=== PATIENT | female | born 1960 | race Caucasian/White ===

== ENCOUNTER 2017-07-07 09:56 | Day surgery (SDC) | payer OTHER, SELFPAY ==
[2017-07-07 10:23] VITALS: BP 118/66; PULSE 58; RESP 16; TEMP 36.7; O2SAT 100; BMI 24.3
[2017-07-07 11:10] VITALS: BP 118/66; BP 96/51; PULSE 51; RESP 19; TEMP 35.7; O2SAT 98
--- NOTE | 2017-07-07 11:11 | PCM.OPRPT ---
Problem List (1) Abdominal discomfort, epigastric Status: Acute (2) Nausea Status: Acute (3) Left flank pain Status: Acute Report of Operation Date of Procedure: 07/07/17 Pre-Operative Diagnosis: R10.13 epigastric abdominal pain. R11.0 nausea. R10.9 left flank pain Post-Operative Diagnosis: Same Surgery/Procedure Performed:: 78997 esophagogastroduodenoscopy with biopsy. 20920 colonoscopy Type of Anesthesia:: MAC Anesthesiologist: Kris Malcolm Description of Procedure: Patient was brought into the endoscopy suite. Back of her throat was sprayed with benzocaine spray. A bite-block was placed. She was placed on the left lateral decubitus position. Graded anesthesia was given. The scope was inserted into the back of her oropharynx and directed down through her esophagus, stomach, and into the duodenum without difficulty operative findings: 1. Duodenum: Normal appearance no mass lesions no ulcerations mucosal all look normal. No signs of any bleeding. 2. Stomach: Normal appearance no mass lesions may be some slight erythema in the antral area in the prepyloric area biopsy for H. pylori was obtained. Rest of the stomach was entirely normal without signs of any ulcers. 3. Esophagus: Normal appearance no mass lesions Z line was at 44 cm and was normal. There was no signs of esophagitis. Colonoscope was inserted into the rectum and directed through the sigmoid colon, descending colon, transverse colon, ascending colon, and into the cecum without difficulty. Operative findings: 1. Cecum: Normal appearance no mass lesions normal ileocecal valve. 2. Ascending colon: Normal appearance no mass lesions. 3. Transverse colon: Normal appearance no mass lesions. 4. Descending colon: Normal appearance no mass lesions. 5. Sigmoid colon: Normal appearance no mass lesions a few diverticuli were identified. 6. Rectum: Normal appearance no mass lesions retroflexion did show some internal hemorrhoids. In addition with the scope being withdrawn she had some significant external hemorrhoids which were not actively inflamed. Digital rectal exam did not reveal any masses within her anus. The mucosa throughout the colon looked entirely normal there was no signs of any abnormalities particularly on the left side other than some scattered diverticuli. I think the best course of action here is to proceed with a laparoscopic cholecystectomy on her. - Admit VTE Documentation VTE Present on Admission: No VTE Mechan Device Prophylaxis: None VTE Pharm Prophylaxis ordered?: No Reason prophylaxis not ordered:: Treatment Not Indicated
[2017-07-07 11:15] VITALS: BP 101/59; BP 118/66; PULSE 49; RESP 16; O2SAT 98
--- NOTE | 2017-07-07 11:17 | OP.PCM_ITS ---
Problem List (1) Abdominal discomfort, epigastric Status: Acute (2) Nausea Status: Acute (3) Left flank pain Status: Acute Report of Operation Date of Procedure: 07/07/17 Pre-Operative Diagnosis: R10.13 epigastric abdominal pain. R11.0 nausea. R10.9 left flank pain Post-Operative Diagnosis: Same Surgery/Procedure Performed:: 76568 esophagogastroduodenoscopy with biopsy. 26307 colonoscopy Type of Anesthesia:: MAC Anesthesiologist: Kris Malcolm Description of Procedure: Patient was brought into the endoscopy suite. Back of her throat was sprayed with benzocaine spray. A bite-block was placed. She was placed on the left lateral decubitus position. Graded anesthesia was given. The scope was inserted into the back of her oropharynx and directed down through her esophagus , stomach, and into the duodenum without difficulty operative findings: 1. Duodenum: Normal appearance no mass lesions no ulcerations mucosal all look normal. No signs of any bleeding. 2. Stomach: Normal appearance no mass lesions may be some slight erythema in the antral area in the prepyloric area biopsy for H. pylori was obtained. Rest of the stomach was entirely normal without signs of any ulcers. 3. Esophagus: Normal appearance no mass lesions Z line was at 44 cm and was normal. There was no signs of esophagitis. Colonoscope was inserted into the rectum and directed through the sigmoid colon , descending colon, transverse colon, ascending colon, and into the cecum without difficulty. Operative findings: 1. Cecum: Normal appearance no mass lesions normal ileocecal valve. 2. Ascending colon: Normal appearance no mass lesions. 3. Transverse colon: Normal appearance no mass lesions. 4. Descending colon: Normal appearance no mass lesions. 5. Sigmoid colon: Normal appearance no mass lesions a few diverticuli were identified. 6. Rectum: Normal appearance no mass lesions retroflexion did show some internal hemorrhoids. In addition with the scope being withdrawn she had some significant external hemorrhoids which were not actively inflamed. Digital rectal exam did not reveal any masses within her anus. The mucosa throughout the colon looked entirely normal there was no signs of any abnormalities particularly on the left side other than some scattered diverticuli. I think the best course of action here is to proceed with a laparoscopic cholecystectomy on her. - Admit VTE Documentation VTE Present on Admission: No VTE Mechan Device Prophylaxis: None VTE Pharm Prophylaxis ordered?: No Reason prophylaxis not ordered:: Treatment Not Indicated
[2017-07-07 11:20] VITALS: BP 112/58; BP 118/66; PULSE 48; RESP 16; O2SAT 98
[2017-07-07 11:25] VITALS: BP 110/60; BP 118/66; PULSE 40; RESP 16; TEMP 36.1; O2SAT 100
[2017-07-07 11:48] VITALS: BP 118/66
== END 2017-07-07 11:50 | disposition home or self-care (01) ==
LOC: EN 09:56 → AC 09:58
PROVIDERS: Family Provider Family Medicine; PCP Family Medicine; Visit Provider Surgery
PROC: 0DJD8ZZ Inspection of Lower Intestinal Tract, Via Natural or Artificial Opening Endoscopic (ICD-10-PCS; CPT 45378; principal; 2017-07-07 10:55)
DX: K64.8 Other hemorrhoids (principal); K64.4 Residual hemorrhoidal skin tags; R10.13 Epigastric pain; R11.0 Nausea; R10.9 Unspecified abdominal pain; I48.92 Unspecified atrial flutter; I47.2 Ventricular tachycardia; I10 Essential (primary) hypertension; G47.30 Sleep apnea, unspecified; L40.50 Arthropathic psoriasis, unspecified; Z79.899 Other long term (current) drug therapy
CPT/HCPCS: 43239; 45378; J7120

== ENCOUNTER 2017-07-10 10:21 | Day surgery (SDC) | payer OTHER, SELFPAY ==
--- NOTE | 2017-07-10 | GALL_PTH ---
PATIENT: MAGGI LISA LOC: [facility] [place] U#:[id number] AGE/SX: 56/F ROOM: RE07/10/[address]: Dr. Duy Guido MD : [id number] BED: DIS: 07/10/2017 SPEC #: [id number] RECD: 07/10/17 14:35 STATUS: LORIE NICK #: [id number] KARY: 07/10/17 00:[address]: Duy Guido DEPT: SURGICAL PATHOLOGY RECD BY: Vernon Barcenas ENTERED: 07/10/17 14:36 SP TYPE: SUNNY SAHNI DR: Dr. Mary Rizvi MD Tissues: Gallbladder, NOS Procedures: Surgery Specimen Level III HEADER OPERATION: Laparoscopic cholecystectomy PRE-OP DIAGNOSIS: Cholecystitis/cholelithiasis TISSUE SUBMITTED: Gallbladder and contents MICROSCOPIC DIAGNOSIS Gallbladder and contents: Chronic cholecystitis and cholelithiasis. SJ:gumaro 5/15/18 MICROSCOPIC DESCRIPTION Slides are reviewed. GROSS DESCRIPTION Received is one container labeled with the patient's name and designated gallbladder and contents. The specimen consists of a gallbladder measuring 13 cm in length and up to 3.5 cm in diameter. The external surface is pink-bateman, smooth and glistening for the most part. Focally it is granular, hemorrhagic and contains cautery artifact. The gallbladder contains green-yellow mucoid bile and multiple multifaceted greenish-yellow to brown stones measuring in aggregate 8 x 7 x 2.5 cm and 0.5 to 2 cm in greatest dimension. The mucosa is bile-stained and without any mass lesions. The gallbladder wall measures 0.2 cm in thickness. Pattern Carrier sections from the gallbladder and the cystic duct are submitted in one cassette. / SJ:gumaro 07/10/17 TC:[address] [facility]: [id number]
[2017-07-10] MEDS: Cefazolin 2 GM in 0.9% Normal Saline 100 ML IV (07:00)
--- NOTE | 2017-07-10 10:30 | EKG12_ITS ---
Test Reason : PRE OP Blood Pressure : / mmHG Vent. Rate : 045 BPM Atrial Rate : 045 BPM P-R Int : 128 ms QRS Dur : 094 ms QT Int : 486 ms P-R-T Axes : 051 034 042 degrees QTc Int : 420 ms Marked sinus bradycardia Abnormal ECG Confirmed by SUPRIYA PETERSEN, NAMRATA ([id number]), managing editor ALAINA DAVISON ([id number]) on 07/13/2017 1:04:03 PM Referred By: Duy Guido Confirmed By:NAMRATA EPPS MD
[2017-07-10 10:59] VITALS: BP 123/75; PULSE 53; RESP 14; TEMP 36.4; O2SAT 100; BMI 24.0
[2017-07-10 11:04] LABS: Hematocrit 41.7 % (37-47); Hemoglobin 14.1 g/dl (12.0-15.0); Mean Corp Hgb Conc 33.8 g/gl (32-36); Mean Corpuscular Hgb 31.4 pg (27.0-32.0); Mean Corpuscular Volume 92.9 fL (81-99); Mean Platelet Vol. 10.7 fl (6.2-12.0); Platelet Count 243 K/mm3 (150-450); RBC Distribution Width CV 12.6 % (11.6-14.6); Red Blood Count 4.49 M/mm3 (4.2-5.4); Scan Indicated on CBC? Y/N NO; White Blood Count 4.6 K/mm3 (4.4-11.0)
[2017-07-10 11:05] LABS: Anion Gap 6 (5-15); BUN 9 mg/dL (7-18); BUN/Creat Ratio 8.9 RATIO (10-20); Calcium,Total 8.7 mg/dL (8.5-10.1); Chloride 108 mmol/L (98-107); Creatinine, Serum 1.01 mg/dL (0.55-1.02); EST Glomerular Filtration Rate 60 mL/min (>60); Est Glom Filt Rate - Afr Amer 73 mL/min (>60); Estimated Creatinine Clearance 60.48 ml/min; Glucose 85 mg/dL (74-106); Potassium 3.8 mmol/L (3.5-5.1); Sodium Level 141 mmol/L (136-145)
--- NOTE | 2017-07-10 12:02 | PCM.DC.GB ---
Discharge Diet: Light diet - advance as tolerated Discharge Activity: May Not Drive - for 2-3 days or while taking narcotic pain medications., - - Do not drive, work heavy equipment or sign legal documents for 24 hours. May shower in (days): 1 - with the bandage in place. Additional Activity Instructions:: Pain medication may cause nausea. You should typically eat light foods as you take your pain medications. Pain medication may also cause constipation. If this is a problem for you, please discuss with your doctor. Call your doctor if your incision/area has: Continuous Slow Oozing, Sudden Increased Bleeding, Increased Pain/ Swelling, Increased Redness, Foul Smelling Discharge Call your doctor if you observe: Fever of 101 or Higher Suture Line Care: Avoid Pulling/Pushing, Avoid Pinching/Bending Additional Dressing/Incision Instructions:: Leave operative bandaids on for 2 days. When you remove dressing, leave Steri-Strips on until your follow-up appointment, or until the Steri-Strips fall off on their own. Allergies/Adverse Reactions: Allergies atenolol [From Tenormin] Allergy (Unknown, Verified 07/03/17 10:10) Rash ciprofloxacin HCl [From Cipro] Allergy (Unknown, Verified 07/03/17 10:10) Unknown diltiazem Allergy (Unknown, Verified 07/03/17 10:10) Unknown doxycycline hyclate [From Doryx] Allergy (Unknown, Verified 07/03/17 10:10) Unknown meloxicam [From Mobic] Allergy (Unknown, Verified 07/03/17 10:10) Rash Sulfa (Sulfonamide Antibiotics) Allergy (Unknown, Verified 07/03/17 10:10) Rash tetracycline Allergy (Verified 07/03/17 10:10) Unknown ELECTRODE PATCHES Allergy (Uncoded 07/03/17 09:53) Rash Medications to take at Discharge Calcium Carbonate/Vitamin D3 [[facility] Calcium 600 + Vit D3 Tab] 1 ea PO DAILY 03/10/15 flecainide 50 mg tablet 50 mg PO BID 04/22/17 metoprolol tartrate 25 mg tablet 12.5 mg PO BID tab 04/22/17 Hydrocodone Bitart/Apap 5-325 [Gay 5MG-325MG] 1 - 2 tab PO Q4H PRN PRN 4 Days #30 tab 07/10/17 The following prescriptions were given: Hydrocodone Bitart/Apap 5-325 [Gay 5MG-325MG] 1 - 2 tab PO Q4H PRN PRN 4 Days #30 tab PRN Reason: Pain Primary Care Physician: Mary Rizvi MD [Primary Care Provider] - Please Follow Up With: Duy Guido MD - Please call [phone] to schedule an appointment. When: 7 days after your surgery.
--- NOTE | 2017-07-10 12:04 | OP.PCM_ITS ---
Problem List (1) Calculus of gallbladder with acute cholecystitis without obstruction Status: Acute Report of Operation Date of Procedure: 07/10/17 Pre-Operative Diagnosis: k80.00 calculus of the gallbladder with acute cholecystitis without biliary obstruction Post-Operative Diagnosis: same Surgery/Procedure Performed:: 24493 laparoscopic cholecystectomy Type of Anesthesia:: General Description of Procedure: Patient was brought in the operating room. Placed in the supine position. Under excellent general endotracheal intubation the abdomen was sterilely prepped and draped in the usual fashion. Local was injected infraumbilically. Incision was made. Dissection was carried down to the fascia. The fascia was grasped with a Jolly. Varies needle was placed inside the abdomen. The abdomen was insufflated 15 torr. A 10/12 trocar was placed without difficulty. Patient was placed in the head up and rotated to the left position. A subxiphoid #5 trocar was placed, inferior to this another #5 trocar was placed, laterally a #5 trocar was placed. All of these under direct visualization without injury to underlying structures. Fundus of the gallbladder was grasped retracted in a cephalad direction. Significant amount of adhesions were removed from the liver itself to allow the duodenum and colon to be going down in a inferior direction. I dissected out the cystic duct. I place hemoclips proximally and distally and ligated the duct. Identified the cystic artery. Placed hemoclips proximally distally and ligated the artery. Deliver the gallbladder from the gallbladder bed with use of electrocautery. Placed a small Hemoclip on the posterior branch of the cystic artery. After removing the gallbladder from the gallbladder bed and placed it in a specimen bag and retrieved through the umbilical port. I had to lengthen my umbilical port inferiorly to accommodate the large size of the gallbladder. I reinflated the abdomen. I use electrocautery on the liver bed. I had excellent hemostasis. I remove the trochars under direct visualization. I had good hemostasis. I closed the fascia the umbilical port with 2 sutures of 0 Vicryl in a figure-of- eight fashion. Skin incisions were closed with a particular stitches of 4-0 Monocryl. Steri-Strips are applied. Sterile dressings were applied. The patient tolerated the procedure well. - Admit VTE Documentation VTE Present on Admission: No VTE Mechan Device Prophylaxis: SCD's VTE Pharm Prophylaxis ordered?: No Reason prophylaxis not ordered:: Treatment Not Indicated
[2017-07-10] MEDS: Bupivacaine Mpf 0.5% 30 ML VIAL (12:38)
[2017-07-10 12:56] VITALS: BP 123/75; BP 143/69; PULSE 48; RESP 16; TEMP 36.2; O2SAT 100
[2017-07-10 13:15] VITALS: BP 123/75; BP 151/71; PULSE 48; RESP 16; O2SAT 100
[2017-07-10 13:30] VITALS: BP 123/75; BP 154/69; PULSE 51; RESP 16; O2SAT 100
[2017-07-10 13:37] VITALS: BP 123/75; BP 153/67; PULSE 47; RESP 16; TEMP 36.2; O2SAT 98
[2017-07-10 16:33] VITALS: BP 123/75; BP 159/73; PULSE 51; RESP 18; TEMP 36.5; O2SAT 100
== END 2017-07-10 16:48 | disposition home or self-care (01) ==
LOC: SDC 10:22 → AC 10:23
PROVIDERS: Family Provider Family Medicine; PCP Family Medicine; Visit Provider Surgery
PROC: (CPT 47562; principal; 2017-07-10 11:45)
DX: K80.12 Calculus of gallbladder with acute and chronic cholecystitis without obstruction (principal); K82.8 Other specified diseases of gallbladder; I48.92 Unspecified atrial flutter; I47.2 Ventricular tachycardia; I10 Essential (primary) hypertension; L40.50 Arthropathic psoriasis, unspecified; G47.30 Sleep apnea, unspecified; R00.2 Palpitations; Z79.899 Other long term (current) drug therapy
CPT/HCPCS: 00790; 47562; 80048; 85027; 88304; 93005; J7120

== ENCOUNTER → 2017-08-18 14:25 | Outpatient (CLI) | payer OTHER, SELFPAY ==
[2017-09-05 11:44] LABS: HPV Reflexed? NOT INDICATED
== END ==
PROVIDERS: Family Provider Family Medicine; PCP Family Medicine; Visit Provider Family Medicine
DX: Z01.419 Encounter for gynecological examination (general) (routine) without abnormal findings (principal)
CPT/HCPCS: 88175; G0145

== ENCOUNTER → 2017-09-05 07:24 | Outpatient (CLI) | payer OTHER, SELFPAY ==
--- NOTE | 2017-09-05 06:55 | BI_ITS ---
MAMMOGRAPHY - BILATERAL SCREENING REASON FOR EXAM: Female, 56 years old. Routine annual screening examination. PERTINENT HISTORY: Non-contributory. TECHNIQUE: Digital bilateral breast parminder (3D mammographic acquisition) in the CC and MLO projections. 2-D mediolateral oblique (MLO) and craniocaudad (CC) views of both breasts were obtained. CAD: Full Field Digital Mammography with Computer Added Detection was performed. COMPARISON: Comparison is made with prior study dated August 22, 2016 and August 11, 2015. FINDINGS: Breast Composition: The breasts are heterogeneously dense, which may obscure small masses. There are no dominant masses or suspicious calcifications. Stable benign-appearing bilateral axillary lymph nodes. No other significant abnormalities are identified. There has been no significant change since the prior study. BI/SCREENING MAMM (CAD), BILAT IMPRESSION: Stable bilateral screening mammogram. Yearly follow-up mammogram recommended. (A) ASSESSMENT CATEGORY: BIRADS Category 2: Benign. A letter regarding these results will be sent to the patient by the facility within 30 days. Approximately 10% of breast cancers are not detected by mammography. A normal mammogram should not delay biopsy of a clinically suspicious abnormality. [id number] Electronically Signed: Rosas Gutierrez MD at 10:11 EDT Tel [phone], Service support ,
== END ==
PROVIDERS: Family Provider Family Medicine; PCP Family Medicine; Visit Provider Family Medicine
DX: Z12.31 Encounter for screening mammogram for malignant neoplasm of breast (principal)
CPT/HCPCS: 77063; 77067

== ENCOUNTER → 2017-11-21 13:45 | Outpatient (CLI) | payer OTHER, SELFPAY | PROVIDERS: Family Provider Family Medicine; PCP Family Medicine; Referring Provider Physician Assistant Medical; Visit Provider Physician Assistant Medical | DX: R00.1 Bradycardia, unspecified (principal); I48.92 Unspecified atrial flutter | CPT/HCPCS: 93225; 93226 ==

== ENCOUNTER → 2018-09-14 | Outpatient (CLI) | payer OTHER, SELFPAY ==
[2018-05-28 14:35] VITALS: BMI 23.7
[2018-09-14 12:42] LABS: Anion Gap 9 (5-15); BUN 14 mg/dL (7-18); BUN/Creat Ratio 15.6 RATIO (10-20); Calcium,Total 9.1 mg/dL (8.5-10.1); Chloride 102 mmol/L (98-107); EST Glomerular Filtration Rate 69 mL/min (>60); Est Glom Filt Rate - Afr Amer 83 mL/min (>60); Glucose 73 mg/dL (74-106); Magnesium 2.4 mg/dL (1.6-2.6); Potassium 3.7 mmol/L (3.5-5.1); Sodium Level 139 mmol/L (136-145)
== END | disposition home or self-care (01) ==
LOC: MFPLAB 10:52
PROVIDERS: Family Provider Family Medicine; PCP Family Medicine; Referring Provider Family Medicine; Visit Provider Family Medicine
DX: R00.2 Palpitations (principal)
CPT/HCPCS: 36415; 80048; 83735

== ENCOUNTER → 2018-09-26 08:08 | Outpatient (CLI) | payer OTHER, SELFPAY ==
[2018-05-28 14:35] VITALS: BMI 23.7
--- NOTE | 2018-09-26 08:09 | BI_ITS ---
MAMMOGRAPHY - BILATERAL SCREENING REASON FOR EXAM: Female, 57 years old. Routine annual screening examination. PERTINENT HISTORY: Non-contributory. One year history of left breast tenderness. TECHNIQUE: Digital bilateral breast jeronimo (3D mammographic acquisition) in the CC and MLO projections. 2-D mediolateral oblique (MLO) and craniocaudad (CC) views of both breasts were obtained. CAD: Full Field Digital Mammography with Computer Added Detection was performed. COMPARISON: Comparison is made with prior study dated September 05, 2017 and August 22, 2016. FINDINGS: Breast Composition: The breasts are heterogeneously dense, which may obscure small masses. There are no dominant masses or suspicious calcifications. Stable benign-appearing bilateral axillary lymph nodes. No other significant abnormalities are identified. There has been no significant change since the prior study. BI/SCREEN MAMM (CAD) W/JERONIMO BILAT IMPRESSION: Stable bilateral screening mammogram. Yearly follow-up mammogram recommended. (A) ASSESSMENT CATEGORY: BIRADS Category 2: Benign. A letter regarding these results will be sent to the patient by the facility within 30 days. Approximately 10% of breast cancers are not detected by mammography. A normal mammogram should not delay biopsy of a clinically suspicious abnormality. [id number] Electronically Signed: Rosas Gutierrez, at 10:40 EDT , Service support ,
== END ==
PROVIDERS: Family Provider Family Medicine; PCP Family Medicine; Referring Provider Family Medicine; Visit Provider Family Medicine
DX: Z12.31 Encounter for screening mammogram for malignant neoplasm of breast (principal)
CPT/HCPCS: 77063; 77067

== ENCOUNTER → 2018-11-08 13:13 | Outpatient (CLI) | payer OTHER, SELFPAY ==
[2018-05-28 14:35] VITALS: BMI 23.7
== END ==
PROVIDERS: Family Provider Family Medicine; PCP Family Medicine; Referring Provider Nurse Practitioner Family; Visit Provider Nurse Practitioner Family
DX: R30.0 Dysuria (principal)
CPT/HCPCS: 87086; 87088

== ENCOUNTER → 2019-01-01 14:39 | Outpatient (CLI) | payer OTHER, SELFPAY ==
[2018-12-13 13:14] VITALS: BMI 23.1
--- NOTE | 2019-01-01 14:41 | ECHOD_ITS ---
Reason For Study: A. fib/flutter Procedure This was a 2D Doppler, Color Flow transthoracic echocardiogram. Exam performed in department. Left Ventricle Normal size and thickness. The estimated ejection fraction is 55 %. Normal diastology for age. There is borderline global hypokinesis of the left ventricle. Right Ventricle Mildly dilated right ventricle. Normal systolic function. Atria Normal left atrium. Normal right atrium. Normal atrial septum. Bubble contrast study negative for right to left interatrial shunt. Mitral Valve The mitral valve is structurally normal. No prolapse or stenosis seen. Tricuspid Valve Normal tricuspid valve. Mild (1+) tricuspid valve insufficiency. Right ventricular systolic pressure estimated to be 30 mmHg. Aortic Valve Normal aortic valve. Trisinus/trileaflet aortic valve. Pulmonic Valve Normal pulmonic valve. Trivial pulmonic valve insufficiency. Great Vessels Normal aortic root. Normal arch. Normal inferior vena cava. Inferior vena cava collapse with sniff. Pericardium/Pleural Trivial pericardial effusion. There are no echocardiographic indications of cardiac tamponade. Medication 22 gauge I.V. with prn adaptor inserted into left arm. Performed a rapid injection of agitated mix of 9 cc saline and 1cc air to assess for atrial septal defect. MMode/2D Measurements & Calculations LVIDd: 4.0 cm IVSd: 1.0 cm Ao root diam: 2.9 cm LVIDs: 2.6 cm LVPWd: 0.91 cm RVDd: 3.9 cm FS: 33.9 % LAV(MOD-bp): 42.9 ml LA A4 area: 16.5 cm2 LA dimension(2D): 2.8 cm LAV(MOD-bp) Indexed: 24.0 ml/m2 LAV(MOD-sp2): 41.7 ml LAV(MOD-sp4): 37.8 ml RA A4 area: 19.1 cm2 Doppler Measurements & Calculations MV E max dae: 62.7 cm/sec Lat Peak E' Dae: 12.3 cm/sec Med Peak E' Dae: 6.6 cm/sec MV A max dae: 47.3 cm/sec E/E' lat: 5.1 E/E' med: 9.5 MV E/A: 1.3 Ao V2 max: 122.8 cm/sec LV V1 max: 102.2 cm/sec PA V2 max: 81.4 cm/sec Ao max P.0 mmHg LV V1 max P.2 mmHg TR max dae: 246.0 cm/sec TR max P.2 mmHg Interpretation Summary The estimated ejection fraction is 55 %. Normal diastology for age. There is borderline global hypokinesis of the left ventricle. Mildly dilated right ventricle. Bubble contrast study negative for right to left interatrial shunt. Mild (1+) tricuspid valve insufficiency. Right ventricular systolic pressure estimated to be 30 mmHg. Trivial anterior pericardial effusion. There are no echocardiographic indications of cardiac tamponade. Compared to echo report dated , no appreciable changes noted. Trivial pericardial effusion noted at that time. Ordering Physician: Duy Garcia Referring Physician: Mary Rizvi M.D. Performed By: Karen Gallagher RDCS
== END ==
PROVIDERS: Family Provider Family Medicine; PCP Family Medicine; Referring Provider Internal Medicine Cardiovascular Disease; Visit Provider Internal Medicine Cardiovascular Disease
DX: R00.2 Palpitations (principal); G47.30 Sleep apnea, unspecified; I47.2 Ventricular tachycardia; I48.92 Unspecified atrial flutter
CPT/HCPCS: 93306; A4216

== ENCOUNTER → 2019-01-08 09:24 | Outpatient (CLI) | payer OTHER, SELFPAY ==
[2018-12-13 13:14] VITALS: BMI 23.1
--- NOTE | 2019-01-08 09:25 | STE_ITS ---
Reason For Study: afib/flutter Stress Results Protocol: EVERETTE Maximum Predicted HR: 162 bpm Target HR: 138 bpm % Maximum Predicted HR: 90 % DurationHeart Rate Stage (mm:ss) (bpm) BP Baseline 53 154/90 Stage One 3:00 102 160/82 Stage Two 3:00 127 162/88 Stage Three 3:00 146 176/90 Recovery 84 164/94 Stress Duration: 9:00 mm:ss Maximum Stress HR: 146 bpm Baseline Echocardiogram Findings The estimated ejection fraction is 65 %. Stress Echo Wall motion Data Resting WM Intermediate WM Stress WM Resting Wall Motion Wall Motion Stress No regional wall motion No regional wall motion abnormalities noted. abnormalities noted. EKG Data The baseline ECG displays normal sinus rhythm. The patient exercised according to the regular Everette protocol for a total duration of 9:00. The maximum heart rate attained was 173 beats per minute. This was 106% of maximum predicted heart rate. The patient exercised into stage 3 of the Everette protocol. During stress, there were no ST or T wave changes noted to suggest ischemia. No clinical angina was noted. Interpretation Summary The estimated ejection fraction is 65 %. Normal, adequate, treadmill echocardiogram. Negative for ischemia by EKG and echocardiographic criteria. No anginal symptoms noted. Rare PVC noted. Appropriate blood pressure response to exercise. Average exercise capacity for age. Test terminated due to the attainment of target heart rate. Final LVEF is 75%. Patient tolerated procedure well. No complications. Ordering Physician: Duy Garcia Referring Physician: Duy Garcia Performed By: Caitlin Olson, VIJAYA, RVT
== END ==
PROVIDERS: Family Provider Family Medicine; PCP Family Medicine; Referring Provider Internal Medicine Cardiovascular Disease; Visit Provider Internal Medicine Cardiovascular Disease
DX: I48.92 Unspecified atrial flutter (principal); G47.30 Sleep apnea, unspecified; R06.09 Other forms of dyspnea
CPT/HCPCS: 93017; 93350

== ENCOUNTER → 2019-01-29 13:42 | Outpatient (CLI) | payer OTHER, SELFPAY ==
[2018-12-13 13:14] VITALS: BMI 23.1
[2019-01-29 15:46] LABS: Anion Gap 7 (5-15); BUN 12 mg/dL (7-18); BUN/Creat Ratio 13.8 RATIO (10-20); Calcium,Total 9.7 mg/dL (8.5-10.1); Chloride 107 mmol/L (98-107); Creatinine, Serum 0.87 mg/dL (0.55-1.02); EST Glomerular Filtration Rate 71 mL/min (>60); Est Glom Filt Rate - Afr Amer 86 mL/min (>60); Glucose 67 mg/dL (74-106); Potassium 4.1 mmol/L (3.5-5.1); Sodium Level 137 mmol/L (136-145)
== END ==
PROVIDERS: Family Provider Family Medicine; PCP Family Medicine; Referring Provider Nurse Practitioner Family; Visit Provider Nurse Practitioner Family
DX: I10 Essential (primary) hypertension (principal)
CPT/HCPCS: 36415; 80048

== ENCOUNTER 2019-03-25 07:53 | Emergency (ER) | payer OTHER, SELFPAY ==
[2018-12-13 13:14] VITALS: BMI 23.1
[2019-03-25 07:54] VITALS: BP 150/99; PULSE 100; RESP 17; TEMP 36.5; O2SAT 96; BMI 23.2
--- NOTE | 2019-03-25 08:09 | CT_ITS ---
STUDY: CT BRAIN WITHOUT CONTRAST REASON FOR EXAM: Female, 58 years old. HEADACHE, LIGHTHEADED TODAY RADIATION DOSAGE (If Supplied By Facility): CTDIvol = ( 44.99 ) mGy, DLP = ( 796.11 ) mGycm TECHNIQUE: Transaxial CT imaging of the brain was performed without administration of intravenous contrast material. Individualized dose optimization techniques were used for this CT. COMPARISON: Comparison is made with prior study dated April 27, 2016. FINDINGS: Normal soft tissue structures. Normal calvarium. Normal size ventricles and extra-axial spaces for the patient''s age. Normal white matter tracts of the cerebral hemispheres. Normal basal ganglia and thalami. Normal brainstem. Normal cerebellum. There is no intracranial hemorrhage. There are no findings of an acute ischemic infarction. Normal visualized paranasal sinuses. CT/Brain/Head without Contrast IMPRESSION: Normal unenhanced CT scan of the brain. Electronically Signed: Rosas Gutierrez, at 9:01 EST , Service support ,
--- NOTE | 2019-03-25 08:09 | EKG12_ITS ---
Test Reason : PALPITATIONS Blood Pressure : / mmHG Vent. Rate : 068 BPM Atrial Rate : 068 BPM P-R Int : 140 ms QRS Dur : 070 ms QT Int : 408 ms P-R-T Axes : 050 060 057 degrees QTc Int : 433 ms Somatic/Motion Artifact Normal sinus rhythm with sinus arrhythmia Confirmed by SUPRIYA PETERSEN, NAMRATA ([id number]), manager editorial AVANI WORTHY ([id number]) on 03/27/2019 1:41:26 PM Referred By: MR Confirmed By:NAMRATA EPPS MD
--- NOTE | 2019-03-25 08:10 | ED.DCSUM_ITS ---
History of Present Illness Chief Complaint: Palpitations Narrative: Patient presenting for evaluation secondary to feelings of dizziness, headache, and palpitations. Patient has a history of having atrial flutter, she is typically well controlled on flecainide. She has a recent diagnosis of hypertension. Patient has been on lisinopril since about December. She was having abnormal side effects from this associated with lightheadedness, and she recently had her dosage cut in half. Yesterday the patient reports that she was having some issues with gait instability. She states that this did not really feel similar to her normal lightheadedness, but also was not associated with feelings of vertigo. She denies that there was any sort of visual changes numbness weakness or any speech difficulty associated with it. Today the patient stated that she woke up with somewhat of a headache. It was an aching type pain on the crown of her head. It was not sudden in onset. She reports is been waxing and waning throughout the course of the morning without any exacerbating relieving factors. Patient states that she took her blood pressure and it did seem somewhat higher than usual, and she also was having heart rates up into the 120s with palpitations. She denies that there is any associated chest pain. Review of systems otherwise negative. Past Medical History - Allergies and Home Meds Allergies/Adverse Reactions: Allergies diltiazem Allergy (Intermediate, Verified 03/25/19 07:54) rash atenolol [From Tenormin] Allergy (Unknown, Verified 03/25/19 07:54) Rash ciprofloxacin HCl [From Cipro] Allergy (Unknown, Verified 03/25/19 07:54) Unknown doxycycline hyclate [From Doryx] Allergy (Unknown, Verified 03/25/19 07:54) Unknown meloxicam [From Mobic] Allergy (Unknown, Verified 03/25/19 07:54) Rash Sulfa (Sulfonamide Antibiotics) Allergy (Unknown, Verified 03/25/19 07:54) Rash tetracycline Allergy (Verified 03/25/19 07:54) Unknown metoprolol Adverse Reaction (Intermediate, Verified 03/25/19 07:54) Bradycardia ELECTRODE PATCHES Allergy (Uncoded 03/25/19 07:54) Rash Primary Care Physician: Mary Rizvi MD [Primary Care Provider] - Past Medical History: - - Hypertension, atrial flutter Smoking Status: Never smoker Review of Systems All systems negative except as indicated General: Denies: Chills, Fever, Sweats Eyes: Denies: Visual changes - bilaterally, Diplopia ENT: Denies: Rhinorrhea, Sore throat Cardiovascular: Reports: Palpitations Respiratory: Denies: Dyspnea, Cough, Dyspnea on exertion Gastrointestinal: Denies: Abdominal pain, Nausea, Vomiting, Diarrhea, Melena, Hematochezia Genitourinary: Denies: Dysuria, Hematuria, Frequency Musculoskeletal: Denies: Back pain, Extremity Pain Skin: Denies: Rash, Wounds Neurological: Reports: Headache, - - Dizziness Physical Exam Vital Signs/Narrative: Vital Signs Temp Pulse Resp BP Pulse Ox 03/25/19 07:54 97.7 F L 100 17 150/99 H 96 Inital Vital Signs reviewed: Yes General: Well nourished, Well developed, No Acute Distress Head: Normocephalic, Atraumatic Eyes: Perrl, EOMI ENT: Moist mucous membranes, No rhinorrhea Neck: Supple, Nontender Cardiovascular: Regular rate, Regular rhythm, No murmurs, - - Occasional extrasystoles Respiratory: No distress, CTA bilaterally, Chest nontender Abdomen: Soft, Nontender, Nondistended, Normal bowel sounds Back: Nontender, Normal Inspection Extremities: Nontender, No edema Skin: Normal color, No rash Neurological: Alert, Oriented x3, Cranial nerves II-XII grossly intact, Normal Strength, Normal Sensation, - - NIH is 0. Normal cerebellar testing with bgxjcy-bb-dnbz and byyh-qi-pfam testing bilaterally. Psychological: Normal affect, Normal Mood Diagnostic/Tx/Re-eval - EKG Initial EKG Interpretation: - - Sinus rhythm of 68 with minimal sinus arrhythmia, i soelectric ST segments normal T waves. No evidence of acute ischemia or arrhythmia. - Medical Decision Making Patient presented secondary to dizziness and some palpitations. EKG demonstrates sinus rhythm with sinus arrhythmia no acute ischemia or arrhythmia. CT of the brain per radiology is found to be negative. CBC chemistry and troponin also found to be unremarkable. I did consider the possibility of a posterior circulation stroke and the patient, actually got her up and ambulated her around the department and she has no evidence of gait instability, no abnorm al cerebellar testing, and no abnormal neurologic signs other than subjectively saying she feels a little bit offkilter when she is walking. She had normal orthostatic vital signs. Really do not feel that this is a presentation of a stroke, do not feel that she requires admission for further work-up. The patient's palpitations this morning potentially could have been associated with her underlying history of atrial flutter and she potentially had a short run of arrhythmia. As the patient seems to be feeling that she is not tolerating lisinopril well, I did recommend that she discontinue taking it as her blood pressure in the ED it was 133/73 without taking her medications and that could be contributing to her symptoms. Recommended that she follow-up with cardiology about this. She understands signs and symptoms which to return. Patient was discharged in stable condition. ED Disposition - Plan for ED Patient: Disposition: Home or Assisted Living Diagnosis: Dizziness, Palpitations Instructions: VERTIGO, Unspecified Referrals: Mary Rizvi MD [Primary Care Provider] - 1 Week if not improving Duy Garcia MD [STAFF PHYSICIAN] - 1-2 Weeks
[2019-03-25 08:26] VITALS: BP 152/72; BP 153/95; BP 159/95; PULSE 66; PULSE 67; PULSE 76
[2019-03-25 08:44] LABS: Absolute Lymphocyte Count 0.97 X10^3/uL (0.83-4.51); Absolute Neutrophil Count 3.5 X10^3/uL (2.0-7.7); Basophil# 0.03 X10^3/uL; Basophil% 0.6 % (0-1); Eosinophil# 0.06 X10^3/uL; Eosinophils% 1.2 % (0-5); Hematocrit 44.6 % (37-47); Hemoglobin 14.5 g/dL (12.0-15.0); Lymphocyte # 0.97 X10^3/ul (4.0); Lymphocyte % 19.8 % (19-41); Mean Corp Hgb Conc 32.5 g/dL (32-36); Mean Corpuscular Hgb 30.2 pg (27.0-32.0); Mean Corpuscular Volume 92.9 fL (81-99); Mean Platelet Vol. 10.6 fl (6.2-12.0); Monocyte# 0.31 X10^3/uL; Monocyte% 6.3 % (0-10); NRBC Flagged by Analyzer 0 % (0-5); Neutrophil # 3.52 X10^3/uL (2.7-7.7); Neutrophil % 71.9 % (47-70); Platelet Count 196 K/mm3 (150-450); RBC Distribution Width CV 12.1 % (11.6-14.6); White Blood Count 4.9 K/mm3 (4.4-11.0)
--- NOTE | 2019-03-25 08:59 | NURSING ---
PER LAB, CHEMISTRIES ARE QNS
[2019-03-25 09:37] VITALS: BP 133/73; PULSE 62; RESP 12; O2SAT 96
[2019-03-25 09:38] LABS: Anion Gap 5 (5-15); BUN 12 mg/dL (7-18); BUN/Creat Ratio 12.3 RATIO (10-20); Calcium,Total 9.5 mg/dL (8.5-10.1); Chloride 109 mmol/L (98-107); Creatinine, Serum 0.97 mg/dL (0.55-1.02); EST Glomerular Filtration Rate 63 mL/min (>60); Est Glom Filt Rate - Afr Amer 76 mL/min (>60); Estimated Creatinine Clearance 61.48 ml/min; Glucose 88 mg/dL (74-106); Potassium 3.7 mmol/L (3.5-5.1); Sodium Level 142 mmol/L (136-145)
== END 2019-03-25 10:03 | disposition home or self-care (01) ==
PROVIDERS: Emergency Provider Emergency Medicine; PCP Family Medicine
DX: R00.2 Palpitations (principal); R42 Dizziness and giddiness; I10 Essential (primary) hypertension; I48.92 Unspecified atrial flutter
CPT/HCPCS: 70450; 80048; 84484; 85025; 93005; 99285; A4216

== ENCOUNTER → 2019-08-05 14:33 | Outpatient (CLI) | payer OTHER, SELFPAY ==
[2019-04-02 14:37] VITALS: BMI 23.3
[2019-08-05 17:55] LABS: Anion Gap 6 (5-15); BUN 13 mg/dL (7-18); BUN/Creat Ratio 13.7 RATIO (10-20); Calcium,Total 9.6 mg/dL (8.5-10.1); Chloride 104 mmol/L (98-107); Creatinine, Serum 0.95 mg/dL (0.55-1.02); EST Glomerular Filtration Rate 64 mL/min (>60); Est Glom Filt Rate - Afr Amer 78 mL/min (>60); Glucose 82 mg/dL (74-106); Potassium 3.7 mmol/L (3.5-5.1); Sodium Level 140 mmol/L (136-145); Thyroid Stim Hormone (TSH) 1.84 uIU/mL (0.358-3.74)
== END ==
PROVIDERS: PCP Family Medicine; Visit Provider Family Medicine
DX: R00.2 Palpitations (principal)
CPT/HCPCS: 36415; 80048; 84443

== ENCOUNTER → 2019-08-13 11:48 | Outpatient (CLI) | payer OTHER, SELFPAY ==
[2019-04-02 14:37] VITALS: BMI 23.3
--- NOTE | 2019-08-13 11:49 | BI_ITS ---
MAMMOGRAPHY - BILATERAL SCREENING REASON FOR EXAM: Female, 58 years old. Routine annual screening examination. PERTINENT HISTORY: Non-contributory. TECHNIQUE: Digital bilateral breast jeronimo (3D mammographic acquisition) in the CC and MLO projections. 2-D mediolateral oblique (MLO) and craniocaudad (CC) views of both breasts were obtained. CAD: Full Field Digital Mammography with Computer Added Detection was performed. COMPARISON: Comparison is made with prior examination dated September 26, 2018 and September 05, 2017. FINDINGS: Breast Composition: The breasts are heterogeneously dense, which may obscure small masses. There are no dominant masses or suspicious calcifications. Stable small benign-appearing bilateral axillary lymph. No other significant abnormalities are identified. There has been no significant change since the prior study. BI/SCREEN MAMM (CAD) W/JERONIMO BILAT IMPRESSION: Stable bilateral screening mammogram. Yearly follow-up mammogram recommended. (A) ASSESSMENT CATEGORY: BIRADS Category 2: Benign. A letter regarding these results will be sent to the patient by the facility within 30 days. Approximately 10% of breast cancers are not detected by mammography. A normal mammogram should not delay biopsy of a clinically suspicious abnormality. [id number] Electronically Signed: Rosas Gutierrez, at 13:38 EDT , Service support ,
== END ==
PROVIDERS: PCP Family Medicine; Referring Provider Family Medicine; Visit Provider Family Medicine
DX: Z12.31 Encounter for screening mammogram for malignant neoplasm of breast (principal)
CPT/HCPCS: 77063; 77067

== ENCOUNTER 2019-08-28 07:58 | Day surgery (SDC) | payer OTHER, SELFPAY ==
[2019-08-14 09:09] VITALS: BMI 22.8
[2019-08-28] VITALS (25 sets, daily range): BP systolic 141–176; BP diastolic 69–98; PULSE 59–103; RESP 16; TEMP 36.6–37.1; O2SAT 97–100; BMI 23.1
--- NOTE | 2019-08-28 | HEM_PTH ---
PATIENT: MAGGI LISA [place] [facility] [id number] AGE/SX: 58/F ROOM: RE08/28/[address]: Dr. Gilmar Del Rosario MD : 1960 BED: DIS: 08/28/2019 SPEC #: [id number] RECD: 08/28/19 12:15 STATUS: LORIE NICK #: [id number] KARY: 08/28/19 00:[address]: Gilmar Del Rosario DEPT: SURGICAL PATHOLOGY RECD BY: Vernon Barcenas ENTERED: 08/28/19 12:15 SP TYPE: HEMORRHOID OTHR DR: Dr. Mary Rizvi MD Tissues: HEMORRHOIDS Procedures: Surgery Specimen Level III HEADER OPERATION: PPH stapled hemorrhoidopexy PRE-OP DIAGNOSIS: Grade IV hemorrhoids TISSUE SUBMITTED: Internal hemorrhoids MICROSCOPIC DIAGNOSIS Internal hemorrhoids: A piece of colonic mucosa with extensive mucosal hemorrhage and focally dilated and congested blood vessels, consistent with hemorrhoid. SJ:gumaro 08/29/19 COMMENT Case has been reviewed in consultation with Dr. Grigsby who concurs with the above diagnosis. IDC:AM MICROSCOPIC DESCRIPTION Slides are reviewed. GROSS DESCRIPTION Received in fixative is one container labeled with the patient's name and designated hemorrhoids. The specimen consists of an elongated fragment of glistening, bateman mucosa with attached hemorrhagic soft tissue measuring 7 x 2.6 x 1 cm. Serial sections do not reveal mass lesions. Metal Bonding Press Operator sections are submitted in one cassette. / AM:gumaro 08/28/19 TC:5 CPT: 88464
[2019-08-28] MEDS: Lactated Ringers 1,000 ML 100 ML IV ×2 (08:39→15:49)
--- NOTE | 2019-08-28 08:50 | PCM.HP.BLA ---
Problem List (1) Hemorrhoids Status: Acute Qualifiers: Hemorrhoid type: fourth degree History and Physical Date of Admission: 08/28/19 Intake Visit Reasons: Hemorrhoids Radiotelegraph Operator Servicer Required: No Is patient in pain?: No Allergies diltiazem Allergy (Intermediate, Verified 08/14/19 09:09) rash atenolol [From Tenormin] Allergy (Unknown, Verified 08/14/19 09:09) Rash ciprofloxacin HCl [From Cipro] Allergy (Unknown, Verified 08/14/19 09:09) Unknown doxycycline hyclate [From Doryx] Allergy (Unknown, Verified 08/14/19 09:09) Unknown meloxicam [From Mobic] Allergy (Unknown, Verified 08/14/19 09:09) Rash Sulfa (Sulfonamide Antibiotics) Allergy (Unknown, Verified 08/14/19 09:09) Rash tetracycline Allergy (Verified 08/14/19 09:09) Unknown metoprolol Adverse Reaction (Intermediate, Verified 08/14/19 09:09) Bradycardia ELECTRODE PATCHES Allergy (Uncoded 08/14/19 09:09) Rash Medications Calcium Carbonate/Vitamin D3 [[facility] Calcium 600 + Vit D3 Tab] 1 ea PO DAILY 03/10/15 [History Confirmed 08/14/19] polyethylene glycol 3350 17 gram/dose oral powder 17 g PO DAILY 12/13/18 [History Confirmed 08/14/19] Flecainide Acetate 50 mg PO BID 03/25/19 [History Confirmed 08/14/19] erythromycin 5 mg/gram (0.5 %) eye ointment 1 applic OPHTHALMIC DAILY PRN 08/14/19 [History Confirmed 08/14/19] triamcinolone acetonide 0.025 % topical cream 1 applic TOPICAL DAILY PRN 08/14/19 [History Confirmed 08/14/19] FORMERLY [facility], [facility]–1983 Medical History (Updated 08/14/19 @ 09:[address] Gilmar Del Rosario MD) Hemorrhoids (Acute) Psoriatic arthritis (Chronic) Back problem (Chronic) Arthritis (Chronic) Essential hypertension (Chronic) Sleep apnea (Chronic) Dyspnea on exertion (Chronic) Nonsustained ventricular tachycardia (Chronic) Atrial flutter (Chronic) Palpitations (Chronic) Abdominal pain (Resolved) Cholelithiasis (Resolved) Surgical History (Updated 08/14/19 @ 09:08 by Donna Herman) History of esophagogastroduodenoscopy (EGD) (Acute) Hx of colonoscopy (Acute) History of dilatation and curettage (Chronic) History of appendectomy (Chronic ~11/2011) History of cholecystectomy (Resolved) History of left heart catheterization (Chronic ~03/11/15) Hx of cholecystectomy (Resolved) Family History Father CAD (coronary artery disease) [place] and CABG in 60's Hypertension High cholesterol Prostate cancer Mother High cholesterol Hypertension Skin cancer COPD (chronic obstructive pulmonary disease) Social History (Updated 08/14/19 @ 09:[address] Gilmar Del Rosario MD) Smoking Status: Never smoker alcohol intake: current alcohol intake frequency: a few times a month substance use type: does not use caffeine: No HPI HPI HPI: MAGGI LISA, is a 58 F who presents to the office today for surgical consultation regarding treatment of bleeding internal hemorrhoids. The patient was seen by Dr. Duy Guido and it is his impression that she may benefit from a PPH hemorrhoidopexy. He asked me to see her at the same appointment. The patient is referred by Dr. Mary Rizvi. A written copy of my surgical consult recommendations will be returned to her. The patient states that she has had hemorrhoid problems ever since delivery of her children. The past couple years have become more severe. Her primary major complaint is that she has routine daily rectal bleeding. Sometimes more minor sometimes more significant. She did have a colonoscopy per Dr. Guido July 07, 2017. Those findings suggested internal hemorrhoids. External hemorrhoids. There was no active bleeding at that time. The patient also describes that just during her routine daily activities that she senses a pressure sensation within her rectum and does not know whether is the hemorrhoids or her need to defecate. She has had problems with constipation. In the past she tried a fiber supplementation but did not like the taste. She currently is on daily MiraLAX therapy. This does help her move her bowels but she would not say that they are soft. Most pertinent medical problem includes mitral valve prolapse atrial flutter. She is on an antiarrhythmic. She does not require any anticoagulation. HPI HPI HPI: MAGGI LISA, is a 58 F who presents to the office today for ROS General General: Yes fatigue; no weight change, appetite, colon cancer, breast cancer or weakness HEENT HEENT: No difficulty swallowing, eye injury, eye surgery, swollen glands or hoarseness Endo Endocrine: No thyroid disease, diabetes mellitus, thyroid cancer, Hair loss, heat intolerance or cold intolerance Skin Skin: No rash or changing moles Musc Musculoskeletal: Yes back problems and arthritis; no rheumatoid arthritis, gout or joint pain Cardio Cardiovascular: Yes murmur; no pacemaker, heart disease, atrial fibrillation, high blood pressure, heart attack, heart stent, palpitations, shortness of breat with exertion or chest pain Psych Psychiatric: No depression, anxiety or hearing voices Resp Respiratory: No shortness of breath, Yes sleep apnea, No cough, No COPD, No asthma, No emphysema, No wheezing Gastro Gastrointestinal: Yes abdominal pain, No nausea or vomiting, No diarrhea, Yes constipation, Yes blood in stool, No acid reflux, Yes hemorrhoids, No ulcers, No gallbladder problem, No black,tarry stools Srinivas Hematologic: No blood thinners, No blood disorders, No bleeding, No anemia, No blood clots Neuro Neurologic: Yes numbness, Yes tingling, No weakness Exam Const General: cooperative, healthy appearing, comfortable, no acute distress Nutritional Appearance: average body habitus Orientation: alert [facility] Head: normal to inspection Chest Chest palpation & inspection: normal inspection of the chest Resp Effort & Inspection: normal respiratory effort Auscultation: clear to auscultation bilaterally Cardio Rate: regular rate Rhythm: regular rhythm Heart Sounds: murmur GI Palpation: soft, no hepatosplenomegaly Auscultation: normal bowel sounds Other: Rectal exam, exuberant external hemorrhoids, prolapsing internal hemorrhoids left lateral, exuberant internal hemorrhoids, no focal mass, slight blood with mucus Skin General: no rashes or lesions noted Neuro Cognition: normal cognition Extrem General: no calf tenderness Psych Affect: normal affect Assessment & Plan Problems 1. Grade IV hemorrhoids K64.3 Plan Fourth degree nonreducible external hemorrhoids with prolapsing internal hemorrhoids and continuous rectal bleeding. In great deal an extensive discussion I have compared and contrasted PPH stapled hemorrhoidopexy with surgical hemorrhoidectomy. She is aware of the technique, benefit, risk, alternatives. She has had an opportunity to ask and have questions answered. She desired to schedule a procedure date and she will notify us as to how she would like to proceed. I appreciate the opportunity of assisting with her surgical care Cc: Dr Mary Del Rosario M.D., F.A.C.S. Coding Level of Care Code 06130 Diagnoses Grade IV hemorrhoids K64.3 ??Hemorrhoid type: fourth degree I have re-examined the patient. There are no clinical changes since date of exam. Procedure Criteria Procedure Type: Elective COVID Risk Discussion: The surgeon/proceduralist and patient have discussed in detail the risk of exposure to and/or potential harm posed by the COVID-19 virus with having a surgery/procedure at this time versus the risk of delaying the surgery/procedure. It is not possible to know either the risk of delaying the surgery or procedure or chance of getting an infection with perfect accuracy, but a joint decision was made between the patient and the surgeon/proceduralist to proceed at this time with the scheduled surgery/procedure as indicated on the consent form.
--- NOTE | 2019-08-28 08:52 | DCINST_ITS ---
Discharge Diet: No Restrictions Discharge Activity: Return to Normal Activity, May Not Drive - while you are taking narcotic pain medications. Do not drive, work with heavy equipment or sign legal documents for 24 hours after your surgery., May Shower Additional Activity Instructions:: Please take a daily fiber supplement like Metamucil or Citrucel or FiberCon or Benefiber or generic. The powder tends to work better and allows you to drink at least 1 or 2 glasses of fluid with it. You may utilize mineral oil 30 cc head and food or juice once daily for 5 days. I would avoid foods that are constipating like cheese. You may utilize bone-lxk-xdgloby pain medicine like Tylenol or acetaminophen. Continue with your MiraLAX as well Additional Dressing/Incision Instructions:: No rectal suppositories please. I do anticipate some amount of mucus and blood. You may use a female hygiene pad as needed. Allergies/Adverse Reactions: Allergies diltiazem Allergy (Intermediate, Verified 08/28/19 08:30) rash atenolol [From Tenormin] Allergy (Unknown, Verified 08/28/19 08:30) Rash ciprofloxacin HCl [From Cipro] Allergy (Unknown, Verified 08/28/19 08:30) Unknown doxycycline hyclate [From Doryx] Allergy (Unknown, Verified 08/28/19 08:30) Unknown meloxicam [From Mobic] Allergy (Unknown, Verified 08/28/19 08:30) Rash Sulfa (Sulfonamide Antibiotics) Allergy (Unknown, Verified 08/28/19 08:30) Rash tetracycline Allergy (Verified 08/28/19 08:30) Unknown metoprolol Adverse Reaction (Intermediate, Verified 08/28/19 08:30) Bradycardia ELECTRODE PATCHES Allergy (Uncoded 08/28/19 08:30) Rash Medications to take at Discharge Calcium Carbonate/Vitamin D3 [[facility]vs Calcium 600 + Vit D3 Tab] 1 ea PO DAILY 03/10/15 polyethylene glycol 3350 17 gram/dose oral powder 17 g PO DAILY 12/13/18 Flecainide Acetate 50 mg PO BID 03/25/19 erythromycin 5 mg/gram (0.5 %) eye ointment 1 applic OPHTHALMIC DAILY PRN 08/14/19 triamcinolone acetonide 0.025 % topical cream 1 applic TOPICAL DAILY PRN 08/14/19 Psyllium [Metamucil] 1 packet PO DAILY 08/21/19 Primary Care Physician: Mary Rizvi MD [Primary Care Provider] - Test Results: Test results from this visit will be discussed in further detail at your follow- up appointment, if applicable. Please Follow Up With: Gilmar Del Rosario MD - [phone] When: Plan to have a follow up approximately 3 weeks after surgery.
[2019-08-28] MEDS: BUPIVACAINE LIPOSOME/PF 20 ML VIAL OPERA.SITE (09:51)
[2019-08-28] MEDS: Lubricating Jelly 60 GM Tube 30 GM TOPICAL (09:51)
[2019-08-28] MEDS: Bupivacaine Mpf 0.5% 30 ML VIAL (09:51)
[2019-08-28] MEDS: Thrombin 5,000 IU Kit (PSA) 5,000 IU Vial 5000 IU (10:15)
--- NOTE | 2019-08-28 10:16 | PCM.OPRPT ---
Problem List (1) Hemorrhoids Status: Acute Qualifiers: Hemorrhoid type: fourth degree Report of Operation Date of Procedure: 08/28/19 Pre-Operative Diagnosis: Bleeding prolapsing internal hemorrhoids stage IV Post-Operative Diagnosis: Same Surgery/Procedure Performed:: PPH stapled hemorrhoidopexy Description of Surgical Findings:: Timeout and informed consent was obtained. 58-year-old female was taken to the operating room. She underwent general endotracheal vision anesthesia. She was placed prone on the table. Perianal area was prepped and draped with Betadine. She received 900 mg of clindamycin intravenously. Inspection revealed stage IV prolapsing internal hemorrhoids. There was some additional external hemorrhoidal component as well. Palpation was performed. Speculum inspection was performed. Then the stapling kit external retaining clear plastic cover and stylette was inserted. Then the measuring device was inserted. At 4 cm from the anal verge circumferentially 0 Prolene was used to do a pursestring suture of the mucosa and submucosa circumferentially. Great care was taken to assure that this remained at the same level and at 4 cm proximal to the dentate line. Having achieved that I removed this suturing device I inspected and pulled on the area suture line it appeared to be at appropriate height and is here to be circumferential. I used a clean gloves to check his vaginal wall to assure that that tissue was not being withdrawn and it was not. I inserted the stapler tied down the Prolene exited through the suture holes and secured an air knot I then inserted further inserted the stapler and closed it. I rechecked the vaginal vault to assure no involvement and there was none. And fired the stapler. Several minutes were allowed to pass. The stapler was then carefully removed. The tissue was inspected was noted to be nicely completely circumferential. I then placed in a lighted speculum to inspect the staple line it was nice and intact and hemostatic. There was some oozing from left lateral external hemorrhoidal site. Gentle pressure was used to maintain that. I then placed Gelfoam soaked with thrombin into the rectum. Cover dressings were applied. Sponge and instrument and needle counts were reported to the surgeon to be correct. Blood loss minimal. She tolerated procedure well. The perianal perirectal area was anesthetized with 20 cc of Exparel diluted with 5 cc of 0.5% Marcaine. This was used to anesthetize the right circumferentially around the anus and along the rectal tissue. Specimens internal hemorrhoidal tissue. Drains none. Blood loss minimal. Gilmar Del Rosario M.D., F.A.C.S. Type of Anesthesia:: General Anesthesiologist: Wilber Weinberg
--- NOTE | 2019-08-28 11:44 | SUR.PHASEI ---
1130 CONT TO MONITOR PT. DR WALKER AT BEDSIDE. 2+ ATIF HAND GRASP. PT NOT MOVING ARMS OR LEGS. 2+ PEDAL PUSH. PT REPORTS HAVING A NEUROLOGY APPT AUGUST 2019 D/T RECENT BALANCE ISSUES.
--- NOTE | 2019-08-28 12:18 | SUR.PHASEI ---
1215 DR. WALKER BEDSIDE. PT UNABLE TO MOVE LEGS AND ARMS. PEDAL PUSH ATIF 2+, HAND GRASP ATIF 2+. PT A&OX3.
--- NOTE | 2019-08-28 13:00 | SUR.PHASEI ---
PT IS ABLE TO TOUCH HER NOSE WITH BOTH HANDS AT THIS TIME, DOES NOT HAVE FINE MOTOR CONTROL TO MOVE FINGERS, THOUGH HAS EXCELLENT CARD RUNNER STRENGTH). IS IMPROVING ON CONTROL LOWERING HER ARMS. PT IS INCREASING WITH BEING ABLE TO BEND HER KNEES , HAS STRONG PUSH WITH FEET AND WEAK BUT PRESENT PULL.
--- NOTE | 2019-08-28 15:02 | SUR.PHASEI ---
1500 PT MOVING ARMS AND LEGS WITH CONTROL. FINE MOTER STARTING TO COME BACK. PT REPORTS FEELING WEAK. ATIF HAND GRASP & PEDAL PUSH 5+, DR. SALOMON BEDSIDE TO SEE PT
--- NOTE | 2019-08-28 15:50 | SUR.PHASEI ---
1545 PT ASSISTED X2 UP TO BS COMMODE. PT MOVING WELL. SLIGHTLY WEAK. FULL MOVEMENT NOTED OF ARMS AND LEGS. VOIDED. ASSISTED BACK TO BED. ABD ON RECTUM CHANGED. DR. SALOMON BEDSIDE. AWARE OF RETURN MOVEMENTS. OK TO TRANSFER TO .
== END 2019-08-28 17:22 | disposition home or self-care (01) ==
LOC: SDC 07:58 → AC 07:59
PROVIDERS: Anesthesiology; PCP Family Medicine; Referring Provider Surgery; Visit Provider Surgery
PROC: (CPT 46947; principal; 2019-08-28 09:45)
DX: K64.3 Fourth degree hemorrhoids (principal); K64.4 Residual hemorrhoidal skin tags; K59.00 Constipation, unspecified; I48.92 Unspecified atrial flutter; I34.1 Nonrheumatic mitral (valve) prolapse; G47.30 Sleep apnea, unspecified; Z11.59 Encounter for screening for other viral diseases
CPT/HCPCS: 46947; 87635; 88304; G2023; J7120; J2405; U0003

== ENCOUNTER → 2019-09-20 07:08 | Outpatient (CLI) | payer OTHER, SELFPAY ==
[2019-09-19 08:59] VITALS: BMI 23.2
[2019-09-20 10:02] LABS: Hematocrit 43.2 % (37-47); Hemoglobin 13.6 g/dL (12.0-15.0); Mean Corp Hgb Conc 31.5 g/dL (32-36); Mean Corpuscular Hgb 30.8 pg (27.0-32.0); Mean Corpuscular Volume 97.7 fL (81-99); Mean Platelet Vol. 11.2 fl (6.2-12.0); Platelet Count 231 K/mm3 (150-450); RBC Distribution Width CV 12.7 % (11.6-14.6); RBC Distribution Width SD 45.3 fl (35.1-43.9); Red Blood Count 4.42 M/mm3 (4.2-5.4); White Blood Count 4.1 K/mm3 (4.4-11.0)
[2019-09-20 11:06] LABS: Anion Gap 6 (5-15); BUN 11 mg/dL (7-18); BUN/Creat Ratio 12.9 RATIO (10-20); Calcium,Total 8.7 mg/dL (8.5-10.1); Chloride 108 mmol/L (98-107); Creatinine, Serum 0.85 mg/dL (0.55-1.02); EST Glomerular Filtration Rate 73 mL/min (>60); Est Glom Filt Rate - Afr Amer 88 mL/min (>60); Glucose 74 mg/dL (74-106); Potassium 3.5 mmol/L (3.5-5.1); Sodium Level 140 mmol/L (136-145)
== END ==
PROVIDERS: PCP Family Medicine; Referring Provider Nurse Practitioner Family; Visit Provider Nurse Practitioner Family
DX: R42 Dizziness and giddiness (principal)
CPT/HCPCS: 36415; 80048; 85027

== ENCOUNTER → 2019-09-28 07:58 | Outpatient (CLI) | payer OTHER, SELFPAY ==
[2019-09-19 08:59] VITALS: BMI 23.2
--- NOTE | 2019-09-28 08:03 | MRI_ITS ---
ACR Level 3 findings have been noted. An addendum which confirms receipt of the report will follow. STUDY: MRI BRAIN WITH AND WITHOUT CONTRAST (ATTENTION INTERNAL AUDITORY CANALS - I.A.C.s) REASON FOR EXAM: Female, 58 years old patient with loss of balance TECHNIQUE: Standardized multiplanar fat and water weighted pulse sequences were obtained. 15 ml of Dotarem was administered for the contrast portion of the examination. COMPARISON: CT of the head dated 03/25/2019. FINDINGS: Normal bilateral temporal bones. Normal bilateral internal auditory canals. There is no demonstrated intracanalicular or cisternal vestibular schwannoma (acoustic neuroma). There is no enhancement of the bilateral VIIth or VIIIth cranial nerves. Normal bilateral cochlea, vestibules and semicircular canals. There is mild cerebral atrophy with widening of the extra-axial spaces and ventricular dilatation. Normal white matter tracts of the supratentorial brain. There is no evidence for recent intracranial ischemia or other cause of cytotoxic edema on diffusion weighted imaging (DWI). There is a tiny focus of restricted diffusion in the right basal ganglia that may represent sequela of a tiny acute infarct. This is only seen on diffusion-weighted image #15 of MR series #401 and MR abdomen series #400. The basal ganglia otherwise have a normal appearance. Normal thalami. Normal flow voids within the major intracranial circulation suggesting patency by spin echo criteria. Normal venous enhancement. There is no enhancing intra-axial or extra-axial abnormality. There is no extra-axial fluid accumulation. Normal sella turcica, pituitary gland, infundibular stalk, optic chiasm and hypothalamus. Normal tectal plate and pineal gland. Normal midbrain, lynn and medulla. Normal cerebellum. Normal basal cisterns. No demonstrated orbital abnormality, within the constraints of a routine brain study. There is mucoperiosteal inflammatory disease of the paranasal sinuses consistent with mild chronic sinusitis. Normal calvarium and skull base. Normal visualized soft tissue structures. Normal visualized upper cervical spine. MRI/Brain W/WO Contrast IMPRESSION: 1. Tiny acute infarct involving the right basal ganglia. 2. No MR evidence for internal auditory canal or cerebellopontine mass. 3. Mild involutional changes of the brain. Electronically Signed: Isabel Zamora MD at 9:48 EDT , Service support ,
== END ==
PROVIDERS: PCP Family Medicine; Referring Provider Nurse Practitioner Family; Visit Provider Nurse Practitioner Family
DX: H81.90 Unspecified disorder of vestibular function, unspecified ear (principal)
CPT/HCPCS: 70553; A9575

== ENCOUNTER 2019-09-29 12:58 | Observation (INO) | payer OTHER, SELFPAY ==
[2019-09-19 08:59] VITALS: BMI 23.2
[2019-09-29] VITALS (9 sets, daily range): BP systolic 148–161; BP diastolic 62–113; PULSE 65–80; RESP 12–18; TEMP 36.5–37.1; O2SAT 96–100; BMI 23.1; BMI 22.9
--- NOTE | 2019-09-29 13:12 | EKG12_ITS ---
Test Reason : Blood Pressure : / mmHG Vent. Rate : 068 BPM Atrial Rate : 068 BPM P-R Int : 150 ms QRS Dur : 096 ms QT Int : 412 ms P-R-T Axes : 057 048 057 degrees QTc Int : 438 ms Normal sinus rhythm Normal ECG Confirmed by SUPRIYA PETERSEN, NAMRATA ([id number]), film editor supervisor EULOGIO COPELAND ([id number]) on 10/02/2019 10:40:42 AM Referred By: RUSLAN Confirmed By:NAMRATA EPPS MD
--- NOTE | 2019-09-29 13:12 | CT_ITS ---
STUDY: CTA HEAD AND NECK WITH CONTRAST REASON FOR EXAM: Female, 58 years old. CVA FOUND ON MRI FROM 09/28/19. LOSS OF BALANCE. RADIATION DOSAGE (If Supplied By Facility): CTDIvol = ( 26.03 ) mGy, DLP = ( 1498.90 ) mGycm TECHNIQUE: CT angiography was performed with a multi-detector CT scanner. Data acquisition was obtained from the skull base through the vertex following intravenous administration of 100 ML ISOVUE 370. MIP images were reconstructed from the axial data set. Post-processing of the angiographic images was performed, with multiplanar reformation and 3D reconstruction. Individualized dose optimization techniques were used for this CT. COMPARISON: No relevant priors. FINDINGS: CT head without contrast: No intracranial mass, hemorrhage, hydrocephalus, or acute territorial infarct. CTA HEAD: Normal bilateral petrous and cavernous carotid arteries. Normal right A1 segments of the anterior cerebral artery. Absent A1 segment of the left anterior cerebral artery. Normal intact anterior communicating artery (ACOM). Normal bilateral A2 segments of the anterior cerebral arteries. Normal M1 and M2 segments of the middle cerebral arteries, with normal M1 bifurcations. There is non-visualization of the right posterior communicating artery (PCOM). There is non-visualization of the left posterior communicating artery (PCOM). Right dominant vertebral artery. Left vertebral artery terminates as the posterior inferior cerebellar artery. Normal basilar artery with a normal basilar bifurcation. The visualized bilateral superior cerebellar (SCA) arteries are normal. Normal bilateral P1, P2 and visualized P3 segments of the posterior cerebral arteries. There is no demonstrated aneurysm of the [place] of [place]. AORTIC ARCH: Normal visualized aortic arch. Normal origin of the radiocephalic artery. Origins of the left common carotid and subclavian arteries are not well seen due to artifact from contrast bolus. RIGHT CAROTID ARTERIES: Normal right common carotid artery (CCA). Normal right common carotid bulb. Normal origin of the right internal carotid (ICA) artery without stenosis. Normal visualized cervical portion of the right internal carotid artery. Normal origin of the right external carotid artery (ECA). LEFT CAROTID ARTERIES: Normal left common carotid artery (CCA). Normal left common carotid bulb. Normal origin of the left internal carotid (ICA) artery without stenosis. Normal visualized cervical portion of the left internal carotid artery. Normal origin of the left external carotid artery (ECA). VERTEBRAL ARTERIES: Right dominant vertebral artery. Vertebral arteries are otherwise unremarkable. CT/CTA Head AND Neck W/ Contrast IMPRESSION: Normal CTA Head and neck with contrast. Electronically Signed: Julianne Parr MD at 15:33 EDT Tel , Service support ,
--- NOTE | 2019-09-29 13:15 | ED.VISSUMM ---
- ER Visit Summary Date of Service: 09/29/19 Chief Complaint: Stroke History of Present Illness: The patient is a [address] Garcia and Dr. Rizvi. Patient reports that she has had a vague sense of being off balance intermittently since last January. She reports that the worst episodes came in June. She states that for 1 of these she was in the kitchen and felt very off balance and was veering to the left. She was on a walk later in the month and reports that she was varying to the left as well then. She reports that ever since then she will have episodes where she just feels off balance. She has not fallen. She denies any other neurologic complaints. No numbness, weakness, vertigo, or speech difficulties. Patient was seen as an outpatient by Dr. Negrete and had an MRI yesterday that shows an acute tiny stroke in her right basal ganglia. She was sent to the emergency department for further evaluation. Patient does report that she has a history of atrial flutter and is on flecainide. She is not anticoagulated. Review of systems: General: No fever, chills, cold sweats. Cardiovascular: No chest pain, palpitations. Respiratory: No cough, shortness of breath, dyspnea on exertion. Gastrointestinal: No abdominal pain, nausea, vomiting, diarrhea, melena, or hematochezia. Genitourinary: No dysuria, frequency, hematuria. Skin: No rash. Neuro: No headache, numbness, weakness. Physical Examination: Vitals: Stable. Afebrile. General: Well-nourished and well-developed. Head: Normocephalic atraumatic. Neck: Supple, no lymphadenopathy. No JVD. Nontender. Cardiovascular: Regular rate and rhythm. No murmurs. Respiratory: No respiratory distress. Clear to auscultation bilaterally. Abdominal: Soft, nontender, nondistended, normal bowel sounds. No guarding, rebound, or peritoneal signs. Back: Nontender. Extremities: Nontender, no edema. Skin: Normal color, no rash. Neurologic: Alert and oriented ?3. Cranial nerves II through XII are intact. Normal strength and sensation. NIH scale is 0. Psych: Normal affect. Test Results: EKG is sinus at [address] changes. Troponin is negative. Chem-7 is normal. CBC is normal. CTA head and neck is normal. Emergency Department Course and Treatment: Patient's NIH scale is 0. Her MRI already shows a stroke. She is not a TPA candidate. She is resting comfortably. She has had no other symptoms while here. Treatment Plan: Patient needs further evaluation for this acute infarct. She will be discussed the hospitalist and admitted for further evaluation and treatment. Disposition: Admitted in stable condition. Impression: 1. Acute right basal ganglia infarct. 2. History of atrial flutter on flecainide. This note was generated with [employer] dictation software. It may contain incorrect words, spelling, and punctuation that were not noted in review of the chart prior to signing ED Disposition - Plan for ED Patient: Referrals: Mary Rizvi MD [Primary Care Provider] -
[2019-09-29] MEDS: 0.9% Normal Saline 1,000 ML 100 ML IV (13:36)
[2019-09-29 13:41] LABS: Bedside Glucose 95 mg/dL (70-110)
[2019-09-29 13:43] LABS: Absolute Lymphocyte Count 1.68 X10^3/uL (0.83-4.51); Absolute Neutrophil Count 3.2 X10^3/uL (2.0-7.7); Basophil# 0.05 X10^3/uL; Basophil% 0.9 % (0-1); Eosinophil# 0.22 X10^3/uL; Hematocrit 42.9 % (37-47); Hemoglobin 14.3 g/dL (12.0-15.0); Lymphocyte # 1.68 X10^3/ul (4.0); Lymphocyte % 30.8 % (19-41); Mean Corp Hgb Conc 33.3 g/dL (32-36); Mean Corpuscular Hgb 30.8 pg (27.0-32.0); Mean Corpuscular Volume 92.5 fL (81-99); Mean Platelet Vol. 10.4 fl (6.2-12.0); Monocyte# 0.34 X10^3/uL; Monocyte% 6.2 % (0-10); NRBC Flagged by Analyzer 0 % (0-5); Neutrophil # 3.16 X10^3/uL (2.7-7.7); Neutrophil % 57.9 % (47-70); Platelet Count 242 K/mm3 (150-450); RBC Distribution Width CV 12.3 % (11.6-14.6); Red Blood Count 4.64 M/mm3 (4.2-5.4); White Blood Count 5.5 K/mm3 (4.4-11.0)
[2019-09-29 13:44] LABS: Anion Gap 6 (5-15); BUN 11 mg/dL (7-18); BUN/Creat Ratio 11.7 RATIO (10-20); Calcium,Total 9.6 mg/dL (8.5-10.1); Chloride 105 mmol/L (98-107); Creatinine, Serum 0.94 mg/dL (0.55-1.02); EST Glomerular Filtration Rate 65 mL/min (>60); Est Glom Filt Rate - Afr Amer 79 mL/min (>60); Estimated Creatinine Clearance 63.44 ml/min; Glucose 89 mg/dL (74-106); Potassium 3.5 mmol/L (3.5-5.1); Sodium Level 143 mmol/L (136-145)
[2019-09-29 13:52] LABS: Partial Thromboplast Time 30.5 Seconds (24.1-36.2)
--- NOTE | 2019-09-29 15:37 | HP.PCM_ITS ---
Problem List (1) Acute right basal gangliaschemic infarct Status: Acute (2) Hemorrhoids Status: Chronic Qualifiers: (3) History of esophagogastroduodenoscopy (EGD) Status: Chronic Comment: 2018 (4) Hx of colonoscopy Status: Chronic Comment: 2018 (5) Psoriatic arthritis Status: Chronic (6) History of dilatation and curettage Status: Chronic (7) History of appendectomy Status: Chronic (8) Back problem Status: Chronic (9) Arthritis Status: Chronic (10) History of cholecystectomy Status: Resolved (11) Essential hypertension Status: Chronic (12) Sleep apnea Status: Chronic (13) History of left heart catheterization Status: Chronic Comment: normal coronary arteries (14) Dyspnea on exertion Status: Chronic (15) Nonsustained ventricular tachycardia Status: Chronic (16) Atrial flutter Status: Chronic Qualifiers: (17) Palpitations Status: Chronic History of Present Illness Date of Admission: 09/29/19 Chief Complaint: MRI finding of acute infarct The patient is a 58 year old F with history of atrial flutter, NSVT was sent to ER to get admitted for MRI finding tiny acute infarct of right basal ganglia. MRI was done as an outpatient for history of dizziness and losing balance by neurologist Dr. Negrete. Patient has history of getting off balance, leaning on the left side and gait incoordination since January. She is on meclizine 25 mg twice daily for symptoms of dizziness is resolved. Currently, she denies other symptoms of CVA including focal weakness, loss of sensation, paresthesia, aphasia, dysphagia, dysarthria or language deficit. No loss of consciousness, seizure episode. She has history of atrial flutter that got better about 3 years ago when she was put on flecainide. She could not tolerate antihypertensive medicine and metoprolol that was tried in January 2019 per PCP and discontinued as he had hypotension and bradycardia. She follows Dr. Garcia for atrial flutter/NSVT she is not on anticoagulant, region unclear. In ED, blood pressure 116/113. Heart rate 79, sinus rhythm. EKG shows 68 bpm. QTc interval 438 ms. Troponin negative. CTA head and neck reported normal. Past Medical History Past Medical History (Chronic Problems): Chronic Problems (Last Updated 09/19/19 @ 09:05 by Janeth Chávez) Hemorrhoids (Chronic) History of esophagogastroduodenoscopy (EGD) (Chronic) 2018 Hx of colonoscopy (Chronic) 2018 Psoriatic arthritis (Chronic) History of dilatation and curettage (Chronic) History of appendectomy (Chronic ~11/2011) Back problem (Chronic) Arthritis (Chronic) Essential hypertension (Chronic) Sleep apnea (Chronic) History of left heart catheterization (Chronic ~03/11/15) normal coronary arteries Dyspnea on exertion (Chronic) Nonsustained ventricular tachycardia (Chronic) Atrial flutter (Chronic) Palpitations (Chronic) Medical History: Medical History (Last Updated 09/19/19 @ 09:05 by Janeth Chávez) Hemorrhoids (Acute) K64.9 Psoriatic arthritis (Chronic) L40.50 Back problem (Chronic) M53.9 Arthritis (Chronic) M19.90 Essential hypertension (Chronic) I10 Sleep apnea (Chronic) G47.30 Dyspnea on exertion (Chronic) R06.09 Nonsustained ventricular tachycardia (Chronic) I47.2 Atrial flutter (Chronic) I48.92 Palpitations (Chronic) R00.2 Frequent UTI N39.0 Gallstones K80.20 MVP (mitral valve prolapse) I34.1 Abdominal pain (Resolved) R10.9 Cholelithiasis (Resolved) K80.20 Allergies diltiazem Allergy (Intermediate, Verified 09/29/19 12:59) rash atenolol [From Tenormin] Allergy (Unknown, Verified 09/29/19 12:59) Rash ciprofloxacin HCl [From Cipro] Allergy (Unknown, Verified 09/29/19 12:59) Unknown doxycycline hyclate [From Doryx] Allergy (Unknown, Verified 09/29/19 12:59) Unknown meloxicam [From Mobic] Allergy (Unknown, Verified 09/29/19 12:59) Rash Sulfa (Sulfonamide Antibiotics) Allergy (Unknown, Verified 09/29/19 12:59) Rash tetracycline Allergy (Verified 09/29/19 12:59) Unknown metoprolol Adverse Reaction (Intermediate, Verified 09/29/19 12:59) Bradycardia doxycycline [From Doryx] Adverse Reaction (Mild, Verified 09/29/19 12:59) Rash bupivacaine [From Exparel (PF)] Adverse Reaction (Verified 09/29/19 12:59) PT UNSURE OF REACTION unable to move for several hours after a surgery, was unsure which med caused (exparil, cisatracurium, succinylcholene) cisatracurium Adverse Reaction (Verified 09/29/19 12:59) PT UNSURE OF REACTION unable to move for several hours after a surgery, was unsure which med caused (exparil, cisatracurium, succinylcholene) succinylcholine Adverse Reaction (Verified 09/29/19 12:59) PT UNSURE OF REACTION unable to move for several hours after a surgery, was unsure which med caused (exparil, cisatracurium, succinylcholene) ELECTRODE PATCHES Allergy (Uncoded 09/29/19 12:59) Rash Home Medications: Ambulatory Orders Medication Instructions Recorded Calcium Carbonate/Vitamin D3 [Cvs 1 ea PO DAILY 03/10/15 Calcium 600 + Vit D3 Tab] polyethylene glycol 3350 17 17 g PO DAILY 12/13/18 gram/dose oral powder erythromycin 5 mg/gram (0.5 %) eye 1 applic OPHTHALMIC DAILY PRN 08/14/19 ointment triamcinolone acetonide 0.025 % 1 applic TOPICAL DAILY PRN 08/14/19 topical cream Psyllium [Metamucil] 1 packet PO DAILY 08/21/19 flecainide 50 mg tablet 50 mg PO BID #180 tab 09/02/19 meclizine 25 mg tablet 25 mg PO BID #30 tab 09/19/19 Surgical History: Surgical History (Last Reviewed 09/12/19 @ 15:29 by Janeth Chávez) History of esophagogastroduodenoscopy (EGD) (Acute) Z98.890 2018 Hx of colonoscopy (Acute) Z98.890 2018 History of dilatation and curettage (Chronic) Z98.890 History of appendectomy (Chronic) Onset Date: ~11/2011 Z98.890, Z90.49 History of cholecystectomy (Resolved) Z90.49 History of left heart catheterization (Chronic) Onset Date: ~03/11/15 Z98.890 normal coronary arteries Hx of cholecystectomy (Resolved) Z90.49 07/07/2017 Smoking Status: Never smoker Tobacco Use: Non-smoker Alcohol: None Drugs: None - *Family History Paternal Family History: Family History (Last Reviewed 09/12/19 @ 15:29 by Janeth Cáhvez) Father CAD (coronary artery disease) Hypertension High cholesterol Prostate cancer Mother High cholesterol Hypertension Skin cancer COPD (chronic obstructive pulmonary disease) Review of Systems Constitutional: Denies: Chills, Fever, Weight Change Eyes: Denies: Blurred vision HEENT: Denies: Difficulty Swallowing, Dysphasia, Head Aches, Sinus Congestion, Sinus Drainage Cardiovascular: Denies: Chest Pain, Palpitations Respiratory: Denies: Cough, Shortness of breath at rest, Sputum production Gastrointestinal: Denies: Abdominal Pain, Nausea, Vomiting Genitourinary: Denies: Dysuria, Frequency, Urgency Musculoskeletal: Denies: Joint Pain, Joint Tenderness Skin: Denies: Rash, Wounds Neurological: Reports: Balance problems, Incoordination. Denies: Blurred vision, Double vision, Change in Speech, Slurred speech, Confusion, Focal weakness, Numbness, Tingling Psychiatric: Denies: Anxiety, Depression, Homicidal Ideations, Suicidal Ideations Hematologic/ Lymphatic: Denies: Easy Bruising, Easy Bleeding VTE Information - Inpt Only VTE Present on Admission: No VTE Mechan Device Prophylaxis: None VTE Pharm Prophylaxis ordered?: Yes Patient Problems: Active and Suspected Problems (Last Updated 09/19/19 @ 09:05 by Janeth Chávez) Acute right basal gangliaschemic infarct (Acute) - Physical Exam Vitals/I&O's: Vital Signs Temp Pulse Resp BP Pulse Ox 98.7 F 72 18 148/62 H 100 09/29/19 15:12 09/29/19 15:12 09/29/19 15:12 09/29/19 15:12 09/29/19 15:12 Oxygen Delivery Method Room Air Weight: 148 lb Body Mass Index (BMI) 23.1 Finger Stick Blood Glucose 95 General: Alert, Oriented x3, Cooperative HEENT: Atraumatic, PERRLA, EOMI, Normocephalic Neck: Supple, No JVD, Negative Carotid Bruits Lungs: Clear to auscultation, Normal air movement, No rhonchi, No wheeze, No rales Cardiovascular: Regular rate, Regular Rhythm, Normal S1, Normal S2, No murmurs Abdomen: Bowel Sounds Present, Soft, Non Tender, Non-Distended Extremities: No edema, Capillary Refill Less than 3 Seconds Skin: No rashes, No breakdown Musculoskeletal: No Tenderness to Palpation of Joints or Extremities, Arthritic Changes Neurological: Cranial nerves II-XII grossly intact, Deep Tendon Reflexes 2+/4 and Symmetrical, Neuro grossly intact, Motor Exam 5/5 strength throughout, - - NIH stroke scale 0 Psych/Mental Status: Normal Affect, Appropriate Laboratory Results 09/29/19 13:15: WBC 5.5, RBC 4.64, Hgb 14.3, Hct 42.9, MCV 92.5, MCH 30.8, MCHC 33.3, RDW Std Deviation 42.0, RDW Coeff of Vanessa 12.3, Plt Count 242, MPV 10.4, Immature Gran % (Auto) 0.200, Neut % (Auto) 57.9, Lymph % (Auto) 30.8, [place] % (Auto) 6.2, Eos % (Auto) 4.0, Baso % (Auto) 0.9, Absolute Neuts (auto) 3.2, Absolute Lymphs (auto) 1.68, Nucleated RBC % 0 09/29/19 13:15: PT 13.0, INR 1.0, APTT 30.5 09/29/19 13:15: Sodium 143, Potassium 3.5, Chloride 105, Carbon Dioxide 32.0, Anion Gap 6, BUN 11, Creatinine 0.94, Estim Creat Clear Calc 63.44, Est GFR (MDRD) Af Amer 79, Est GFR (MDRD) Non-Af 65, BUN/Creatinine Ratio 11.7, Glucose 89, Calcium 9.6, Troponin I < 0.015 09/29/19 13:32: POC Glucose 95 Current Medications Erythromycin () 1 applic OPHTHALMIC DAILY PRN PRN Reason: eye irritation Sodium Chloride () 1,000 mls @ 100 mls/hr IV .Q10H ONE Stop: 09/29/19 23:11 Last Admin: 09/29/19 13:36 Dose: 100 mls/hr Documented by: Non-Formulary Medication (Flecainide Acetate) 50 mg PO BID [facility] Non-Formulary Medication (Polyethylene Glycol 3350) 17 g PO DAILY [facility] Non-Formulary Medication (Triamcinolone Acetonide) 1 applic TOPICAL DAILY PRN PRN Reason: skin irritation Psyllium Hydrophilic Mucilloid (Metamucil) 1 packet PO DAILY [facility] Assessment/Plan All Active Problems (Last Updated 09/19/19 @ 09:05 by Janeth Chávez) Acute right basal gangliaschemic infarct (Acute) History of cholecystectomy (Resolved) Abdominal discomfort, epigastric (Resolved) Abdominal pain (Resolved) Calculus of gallbladder with acute cholecystitis without obstruction (Resolved) Cholelithiasis (Resolved) Hx of cholecystectomy (Resolved) Left flank pain (Resolved) Nausea (Resolved) The patient is a 58 year old F with history of atrial flutter, NSVT was sent to ER to get admitted for MRI finding tiny acute infarct of right basal ganglia. In ED, blood pressure 116/113. Heart rate 79, sinus rhythm. EKG shows 68 bpm. QTc interval 438 ms. Troponin negative. CTA head and neck reported normal. 1. MRI finding of tiny acute right basal ganglia ischemic infarct: Patient is admitted in PCU for further work-up of acute stroke. front desk monitor. Aspirin and high intensity statin. PT, OT and speech/swallow evaluation. BP and glucose control as per stroke guidelines. Glucose is 95. Patient did not have history of diabetes. Blood pressure in permissive hypertension range. 2. Hypertension: Blood pressure 160s/113, 159/79. Patient is not on antihypertensive medication at home. Patient has a history of hypertension bradycardia on antihypertensive and metoprolol medication in January 2019. 3. Arrhythmia: Atrial flutter/NSVT: Patient palpitation symptom is well controlled for last 3 years on flecainide. 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 Echo in December 2018 Interpretation Summary The estimated ejection fraction is 55 %. Normal diastology for age. There is borderline global hypokinesis of the left ventricle. Mildly dilated right ventricle. Bubble contrast study negative for right to left interatrial shunt. Mild (1+) tricuspid valve insufficiency. Right ventricular systolic pressure estimated to be 30 mmHg. Trivial anterior pericardial effusion. There are no echocardiographic indications of cardiac tamponade. Compared to echo report dated , no appreciable changes noted. Trivial pericardial effusion noted at that time. Patient had normal stress treadmill echo, negative for ischemia by EKG and echocardiographic criteria no angina symptoms in December 2018 4. Psoriatic arthritis, chronic backache: 5. Chronic hemorrhoid: Patient recently had staple hemorrhoidectomy by Dr. Gilmar Del Rosario in July 2019 and had difficulty in recovery from anesthesia and mild lower extremity numbness for 4 hours. Reason unclear Due to prophylaxis: Lovenox 40 mg subcu daily. Living will/advanced directive/end of life care: Patient does have living will/advanced directive. Her is power of transactional attorney for health. After discussion of procedures involved with full code, DNR CC arrest and DNR CC, the patient opted for full code. Patient does want artificial life support including intubation, tube feed, ventilator and/chest compression, central venous catheter, vasopressor and DC shock if needed Total time spent in [id number] encounter in discussion of advanced directive 16 minutes Clinical Impression(s) from Imaging Studies Head/Neck CTA 09/29/19 13:12 IMPRESSION: Normal CTA Head and neck with contrast. OBSV E&M: 07195 Initial observation care L3 Procedures: 03769 Advncd Care Plan 30 Min
[2019-09-29 16:45] LABS: Magnesium 2.1 mg/dL (1.6-2.6)
[2019-09-29] MEDS: Aspirin E.C. 325 MG Tablet PO (16:48)
[2019-09-29] MEDS: 0.9% Saline Lock 10 ML Syringe IV (16:49)
[2019-09-29] MEDS: 0.9% Normal Saline 1,000 ML 50 ML IV (16:49)
[2019-09-29] MEDS: Enoxaparin 40 MG/0.4 ML Syringe SC (16:49)
[2019-09-29] MEDS: Flecainide 100 MG Tablet 50 MG PO (18:09)
[2019-09-29] MEDS: Atorvastatin Calcium 80 MG Tablet PO (20:08)
[2019-09-30] VITALS (9 sets, daily range): BP systolic 133–145; BP diastolic 61–90; PULSE 53–65; RESP 14–18; TEMP 36.6–37; O2SAT 97–98
--- NOTE | 2019-09-30 05:55 | ECHOD_ITS ---
Reason For Study: TIA/CVA Procedure This was a 2D Doppler, Color Flow transthoracic echocardiogram. Exam performed portable in patient room. Left Ventricle Normal LV size. Left ventricular systolic function is normal. The estimated ejection fraction is 60 %. Normal diastology for age. No regional wall motion abnormalities noted. Right Ventricle Normal RV size. Normal systolic function. Atria Normal left atrium. Normal right atrium. Mitral Valve Normal mitral valve. Tricuspid Valve Normal tricuspid valve. Mild (1+) tricuspid valve insufficiency. Pulmonary artery systolic pressure is 30 mmHg. Aortic Valve Trisinus/trileaflet aortic valve. Great Vessels Normal aortic root. The pulmonary artery is normal size. Normal inferior vena cava. Pericardium/Pleural No pericardial effusion. MMode/2D Measurements & Calculations LVIDd: 4.4 cm IVSd: 0.84 cm Ao root diam: 3.1 cm LVIDs: 2.5 cm LVPWd: 0.94 cm RVDd: 4.1 cm FS: 42.9 % LAV(MOD-bp): 41.6 ml LA A4 area: 16.0 cm2 LA dimension(2D): 2.9 cm LAV(MOD-bp) Indexed: 23.5 ml/m2 LAV(MOD-sp2): 42.7 ml LAV(MOD-sp4): 38.4 ml RA A4 area: 16.8 cm2 Time Measurements MV dec time: 0.23 sec Doppler Measurements & Calculations MV E max dae: 80.1 cm/sec Lat Peak E' Dae: 14.5 cm/sec Med Peak E' Dae: 10.3 cm/sec MV A max dae: 49.3 cm/sec E/E' lat: 5.5 E/E' med: 7.8 MV E/A: 1.6 Ao V2 max: 122.8 cm/sec LV V1 max: 113.8 cm/sec PA V2 max: 81.3 cm/sec Ao max P.0 mmHg LV V1 max P.2 mmHg TR max dae: 255.8 cm/sec TR max P.2 mmHg Interpretation Summary Normal LV size. Left ventricular systolic function is normal. The estimated ejection fraction is 60 %. Normal diastology for age. Pulmonary artery systolic pressure is 30 mmHg. Ordering Physician: Alfredo Saenz Referring Physician: Mary Rizvi Performed By: Emilee Ovalle RDCS, RVT
[2019-09-30 06:27] LABS: Cholesterol 200 mg/dL (200); High Density Lipoprotein 49 mg/dL; Thyroid Stim Hormone (TSH) 3.35 uIU/mL (0.358-3.74); Triglycerides 104 mg/dL; Very Low Density Lipoprotein 21 mg/dL (5-40)
[2019-09-30] MEDS: Flecainide 100 MG Tablet 50 MG PO (06:33)
[2019-09-30] MEDS: Aspirin E.C. 81 MG Tablet PO (08:00)
--- NOTE | 2019-09-30 09:46 | PCM.DC ---
- Discharge Diagnoses Current Active Problems: Current Active and Chronic Problems (Last Updated 09/19/19 @ 09:05 by Janeth Chávez) Acute right basal gangliaschemic infarct (Acute) You will use the following diet at home:: Regular Your food should be the consistency of: Regular Discharge Activity: Return to Normal Activity Weight Bearing Status: Weight bearing as tolerated Call your doctor if you observe: Fever of 101 or Higher, Shortness of breath, Dizziness, Fainting spells, Chest pain, Increased palpitations (irregular heartbeat), Uncontrolled pain Allergies/Adverse Reactions: Allergies diltiazem Allergy (Intermediate, Verified 09/29/19 12:59) rash atenolol [From Tenormin] Allergy (Unknown, Verified 09/29/19 12:59) Rash ciprofloxacin HCl [From Cipro] Allergy (Unknown, Verified 09/29/19 12:59) Unknown doxycycline hyclate [From Doryx] Allergy (Unknown, Verified 09/29/19 12:59) Unknown meloxicam [From Mobic] Allergy (Unknown, Verified 09/29/19 12:59) Rash Sulfa (Sulfonamide Antibiotics) Allergy (Unknown, Verified 09/29/19 12:59) Rash tetracycline Allergy (Verified 09/29/19 12:59) Unknown metoprolol Adverse Reaction (Intermediate, Verified 09/29/19 12:59) Bradycardia doxycycline [From Doryx] Adverse Reaction (Mild, Verified 09/29/19 12:59) Rash bupivacaine [From Exparel (PF)] Adverse Reaction (Verified 09/29/19 12:59) PT UNSURE OF REACTION unable to move for several hours after a surgery, was unsure which med caused (exparil, cisatracurium, succinylcholene) cisatracurium Adverse Reaction (Verified 09/29/19 12:59) PT UNSURE OF REACTION unable to move for several hours after a surgery, was unsure which med caused (exparil, cisatracurium, succinylcholene) succinylcholine Adverse Reaction (Verified 09/29/19 12:59) PT UNSURE OF REACTION unable to move for several hours after a surgery, was unsure which med caused (exparil, cisatracurium, succinylcholene) ELECTRODE PATCHES Allergy (Uncoded 09/29/19 12:59) Rash Medications to take at Discharge Calcium Carbonate/Vitamin D3 [[facility] Calcium 600-Vit D3 800 Tab] 1 ea PO DAILY 03/10/15 polyethylene glycol 3350 17 gram/dose oral powder 17 g PO DAILY 12/13/18 erythromycin 5 mg/gram (0.5 %) eye ointment 1 applic OPHTHALMIC DAILY PRN 08/14/19 triamcinolone acetonide 0.025 % topical cream 1 applic TOPICAL DAILY PRN 08/14/19 Psyllium [Metamucil] 1 packet PO DAILY 08/21/19 flecainide 50 mg tablet 50 mg PO BID #180 tab 09/02/19 meclizine 25 mg tablet 25 mg PO BID #30 tab 09/19/19 Apixaban [Eliquis] 5 mg PO BID #90 tab 09/30/19 Atorvastatin Calcium [Lipitor] 80 mg PO QHS #90 tab 09/30/19 The following prescriptions were given: Apixaban [Eliquis] 5 mg PO BID #90 tab Transmission Status: Pending to [id number] Atorvastatin Calcium [Lipitor] 80 mg PO QHS #90 tab Transmission Status: Pending to [facility]/pharmacy #[id number] Primary Care Physician: Mary Rizvi MD [Primary Care Provider] - Please follow up with your Primary Care Physician in: 1 week. Test Results: Test results from this visit will be discussed in further detail at your follow-up appointment, if applicable. Please Follow Up With: Duy Garcia MD When: 2 weeks. Please Follow Up With: Derrell Negrete MD When: 2-3 weeks.
[2019-09-30] MEDS: Polyethylene Glycol 3350 17 GM PACKET PO (09:54)
[2019-09-30] MEDS: APIXABAN 5 MG TABLET PO (09:54)
[2019-09-30] MEDS: Psyllium 1 PACKET PO (09:54)
--- NOTE | 2019-09-30 10:49 | CASEMGMT ---
SW completed a PHQ9 with patient as she had a Stroke. She scored a 0 which indicates no depression. Tiana AMEZQUITA MSW
--- NOTE | 2019-09-30 11:17 | DS.PCM_ITS ---
Discharge Date and Diagnosis - Problem List Patient Problems: Active and Suspected Problems (Last Updated 09/19/19 @ 09:05 by Janeth Chávez) Acute right basal ganglia infarct (Acute) Date of Admission: 09/29/19 Date of Discharge: 09/30/19 - Primary Discharge Diagnosis Acute Problems: Active Problems (Last Updated 09/19/19 @ 09:05 by Janeth Chávez) Acute small right basal ganglia infarct (Acute) - Secondary Discharge Diagnosis Chronic Problems: Chronic Problems (Last Updated 09/19/19 @ 09:05 by Janeth Chávez) Hemorrhoids (Chronic) History of esophagogastroduodenoscopy (EGD) (Chronic) 2018 Hx of colonoscopy (Chronic) 2018 Psoriatic arthritis (Chronic) History of dilatation and curettage (Chronic) History of appendectomy (Chronic ~11/2011) Back problem (Chronic) Arthritis (Chronic) History of cholecystectomy (Chronic) Essential hypertension (Chronic) Sleep apnea (Chronic) History of left heart catheterization (Chronic ~03/11/15) normal coronary arteries Dyspnea on exertion (Chronic) Nonsustained ventricular tachycardia (Chronic) Atrial flutter (Chronic) Palpitations (Chronic) Hospital Course and Treatment Imaging Results: 09/30/19 05:55 Echo Complete [ECHO] AM (NON MEDS) Clinical Impression(s) from Imaging Studies Head/Neck CTA 09/29/19 13:12 IMPRESSION: Normal CTA Head and neck with contrast. Electronically Signed: Julianne Parr MD at 15:33 EDT Tel , Service support , . MRI/Brain W/WO Contrast IMPRESSION: 1. Tiny acute infarct involving the right basal ganglia. 2. No MR evidence for internal auditory canal or cerebellopontine mass. 3. Mild involutional changes of the brain. N.B. : Rocío Saldaan NP, confirmed on 09/30/2019 08:09:58 (ET) that the healthcare facility has received the radiology report. Electronically Signed: Isabel Zamora MD at 9:48 EDT , Service support , Operations: None Procedures: 2-D Echocardiogram, EKG Summary of Care Provided: Patient seen and examined on the day of discharge and appeared to be stable to be discharged home. Symptoms of imbalance has been intermittent, not constant and no other associated symptoms. She feels okay and strong. To go back home. Her vital signs were stable. This is a 58 years old female patient was admitted after she was found to have acute tiny right basal ganglia infarct on MRI brain done as outpatient the day before admission for imbalance that has been going on for several weeks. The MRI that was done on September 28, 2019 revealed tiny acute infarct involving the right basal ganglia. CTA of the head and neck done and it was normal without evidence of hemodynamically significant vascular disease or stenosis. Her EKG r evealed normal sinus rhythm and heart rate has been controlled. She does have a history of paroxysmal atrial fibrillation. She was treated with aspirin and high intensity statins. Her routine blood work was unremarkable. Lipid profile revealed total cholesterol of 200, LDL cholesterol of 130, HDL cholesterol was 49. EKG revealed sinus bradycardia without evidence of acute segment changes or cardiac arrhythmias. TSH was normal. 2D echocardiogram revealed normal LV size and function, ejection fraction was 60%, pulmonary artery pressure was 30. Her [id number] score for atrial fibrillation was 3 based on her age, being a female and this acute infarct. There was no contraindication to start patient on Eliquis. Patient had a hemorrhoid surgery on August 27 and at this time, she denied any bleeding from her rectum. Patient was started on Eliquis 5 mg p.o. twice daily and aspirin was discontinued. Patient discharged home in a stable medical condition, discharged on Eliquis 5 mg p.o. twice daily, Lipitor 80 mg p.o. nightly, continued on her previous home medications without any changes, recommended follow-up with cardiology in 2 weeks, follow-up with neurology in 2 to 3 weeks and follow-up with PCP in 1 week. Patient Problems: Active and Suspected Problems (Last Updated 09/19/19 @ 09:05 by Janeth Chávez) Acute right basal ganglia infarct (Acute) - Physical Exam Vitals/I&O's: Vital Signs Temp Pulse Resp BP Pulse Ox 97.8 F 61 18 145/90 H 98 09/30/19 09:59 09/30/19 09:59 09/30/19 09:59 09/30/19 09:59 09/30/19 09:59 Oxygen Delivery Method Room Air Weight: 146 lb 6.191 oz Body Mass Index (BMI) 22.9 Finger Stick Blood Glucose 95 Intake and Output for Last 24 Hours 09/28/19 09/29/19 09/30/19 23:59 23:59 23:59 Intake Total 1255.83 / 1255.83 504.17 / 504.17 Balance 1255.83 / 1255.83 504.17 / 504.17 General: Alert, Oriented x3, Cooperative, No apparent distress HEENT: Atraumatic, PERRLA, EOMI, Normocephalic Oral: Moist Mucosa, No Gingival or Mucosal Lesions/ Ulcerations Neck: Supple, No JVD, Negative Carotid Bruits, Trachea Midline, Thyroid Normal Size and Texture Lungs: Clear to auscultation, Normal air movement, No rhonchi, No wheeze, No rales Cardiovascular: Regular rate, Regular Rhythm, Normal S1, Normal S2, PMI Normal Abdomen: Bowel Sounds Present, Soft, Non Tender, Non-Distended, No Hepato- splenomegaly Extremities: No clubbing, No cyanosis, No edema Skin: No rashes, No breakdown Lymphatic: No Cervical, Supraclavicular, or Inguinal Adenopathy Neurological: Cranial nerves II-XII grossly intact, Motor Exam 5/5 strength throughout Psych/Mental Status: Normal Affect, Appropriate Laboratory Results 09/29/19 13:15: WBC 5.5, RBC 4.64, Hgb 14.3, Hct 42.9, MCV 92.5, MCH 30.8, MCHC 33.3, RDW Std Deviation 42.0, RDW Coeff of Vanessa 12.3, Plt Count 242, MPV 10.4, Immature Gran % (Auto) 0.200, Neut % (Auto) 57.9, Lymph % (Auto) 30.8, Buchanan % (Auto) 6.2, Eos % (Auto) 4.0, Baso % (Auto) 0.9, Absolute Neuts (auto) 3.2, Absolute Lymphs (auto) 1.68, Nucleated RBC % 0 09/29/19 13:15: PT 13.0, INR 1.0, APTT 30.5 09/29/19 13:15: Sodium 143, Potassium 3.5, Chloride 105, Carbon Dioxide 32.0, Anion Gap 6, BUN 11, Creatinine 0.94, Estim Creat Clear Calc 63.44, Est GFR (MDRD) Af Amer 79, Est GFR (MDRD) Non-Af 65, BUN/Creatinine Ratio 11.7, Glucose 89, Calcium 9.6, Troponin I < 0.015 09/29/19 13:15: Magnesium 2.1 09/29/19 13:32: POC Glucose 95 09/30/19 05:40: Triglycerides 104, Cholesterol 200, LDL Cholesterol 130, VLDL Cholesterol 21, HDL Cholesterol 49, TSH 3.35 Current Medications Acetaminophen (Tylenol) 650 mg PO Q6H PRN PRN PRN Reason: Pain Score 1-10/Temp > 100.7 F Al Hydroxide/Mg Hydroxide (Mylanta Ii) 30 ml PO Q6H PRN PRN PRN Reason: Gastric Burning Albuterol Sulfate (Ventolin Aerosols) 2.5 mg INHALATION Q2H PRN PRN PRN Reason: SOB/Wheezing Apixaban (Eliquis) 5 mg PO BID [facility] Last Admin: 09/30/19 09:54 Dose: 5 mg Documented by: Aspirin (Ecotrin) 81 mg PO DAILY@0800 [facility] Last Admin: 09/30/19 08:00 Dose: 81 mg Documented by: Atorvastatin Calcium (Lipitor) 80 mg PO QHS [facility] Last Admin: 09/29/19 20:08 Dose: 80 mg Documented by: Betamethasone Valerate (Valisone 0.1% Cream (Bkc)) 1 applic TOPICAL DAILY PRN PRN Reason: SKIN IRRITATION Erythromycin () 1 applic OPHTHALMIC DAILY PRN PRN Reason: eye irritation Flecainide Acetate (Tambocor) 50 mg PO BID@0600,1800 [facility] Last Admin: 09/30/19 06:33 Dose: 50 mg Documented by: Hydralazine HCl (Apresoline Iv) 5 mg IV Q30M PRN PRN Reason: to maintain BP goals Sodium Chloride () 500 mls @ 15 mls/hr IV PRN PRN PRN Reason: Blood Transfusion Sodium Chloride () 250 mls @ 15 mls/hr IV .[id number] PRN PRN Reason: Saline Flush Sodium Chloride () 250 mls @ 15 mls/hr IV .[id number] PRN PRN Reason: Additional IVPB Infusion Labetalol HCl (Trandate) 10 - 20 mg IV Q10M PRN PRN PRN Reason: TO MAINTAIN BP GOALS Morphine Sulfate () 2 mg IV Q3H PRN PRN PRN Reason: Pain Score 6-10/10 Nitroglycerin (Nitrostat) 0.4 mg SUBLINGUAL Q5M PRN PRN Reason: CARDIAC/CHEST PAIN Ondansetron HCl (Zofran) 4 mg IV Q8H PRN PRN PRN Reason: NAUSEA/VOMITING Oxycodone HCl (Oxyir) 5 mg PO Q4H PRN PRN PRN Reason: Pain Score 4-5/10 Polyethylene Glycol (Miralax) 17 gm PO DAILY [facility] Last Admin: 09/30/19 09:54 Dose: 17 gm Documented by: Psyllium Hydrophilic Mucilloid (Metamucil) 1 packet PO DAILY [facility] Last Admin: 09/30/19 09:54 Dose: 1 packet Documented by: Senna/Docusate Sodium (Senokot-S, Treasure-Colace) 2 tablet PO BID PRN PRN PRN Reason: Constipation Sodium Chloride () 10 - 40 ml IV UD PRN PRN Reason: SALINE FLUSH Last Admin: 09/29/19 16:49 Dose: 10 ml Documented by: Discharge Activity: Return to Normal Activity Weight Bearing Status: Weight bearing as tolerated Call your doctor if you observe: Fever of 101 or Higher, Shortness of breath, Dizziness, Fainting spells, Chest pain, Increased palpitations (irregular heartbeat), Uncontrolled pain Home Medications: Medications to take at Discharge Calcium Carbonate/Vitamin D3 [[facility] Calcium 600-Vit D3 800 Tab] 1 ea PO DAILY 03/10/15 polyethylene glycol 3350 17 gram/dose oral powder 17 g PO DAILY 12/13/18 erythromycin 5 mg/gram (0.5 %) eye ointment 1 applic OPHTHALMIC DAILY PRN 08/14/19 triamcinolone acetonide 0.025 % topical cream 1 applic TOPICAL DAILY PRN 08/14/19 Psyllium [Metamucil] 1 packet PO DAILY 08/21/19 flecainide 50 mg tablet 50 mg PO BID #180 tab 09/02/19 meclizine 25 mg tablet 25 mg PO BID #30 tab 09/19/19 Apixaban [Eliquis] 5 mg PO BID #90 tab 09/30/19 Atorvastatin Calcium [Lipitor] 80 mg PO QHS #90 tab 09/30/19 Following Prescriptions Were Given to Patient: Apixaban [Eliquis] 5 mg PO BID #90 tab Transmission Status: Received by [facility]acy [id number] Atorvastatin Calcium [Lipitor] 80 mg PO QHS #90 tab Transmission Status: Received by [id number] Primary Care Physician: Mary Rizvi MD [Primary Care Provider] - Please follow up with your Primary Care Physician in: 1 week. Please Follow Up With: Duy Garcia MD When: 2 weeks. Please Follow Up With: Derrell Negrete MD When: 2-3 weeks. Disposition: Home Minutes spent on discharge:: 29 Patient Condition:: Stable Medical Necessity - Tobacco Use Smoking Status: Never smoker Tobacco Use: Non-smoker Meaningful Use Info Meaningful Use Diagnoses (Choose all that apply): None applicable OBSV E&M: 59133 Observation care discharge
--- NOTE | 2019-09-30 11:29 | CASEMGMT ---
Per Dr. Josue, pt to be sent home on Eliquis at discharge and med e-scribed to [facility] previously. Call to [facility] and per tech, pt's co-pay is $91.06 at this time. Pt updated at this time and provided with a [employer] $10 co-pay card and instruction at this time, voices understanding. Pt/ voice no further questions/concerns/needs at this time. SStdonny MONROE CM
== END 2019-09-30 09:47 | disposition home or self-care (01) ==
LOC: ED 13:26 → PCU 15:36
PROVIDERS: Admitting Provider Internal Medicine; Emergency Provider Emergency Medicine; PCP Family Medicine; Visit Provider Hospitalist
DX: I63.9 Cerebral infarction, unspecified (principal); I48.92 Unspecified atrial flutter; R29.700 NIHSS score 0; L40.50 Arthropathic psoriasis, unspecified; M19.90 Unspecified osteoarthritis, unspecified site; I10 Essential (primary) hypertension; G47.30 Sleep apnea, unspecified; Z79.899 Other long term (current) drug therapy; I07.1 Rheumatic tricuspid insufficiency; K64.9 Unspecified hemorrhoids
CPT/HCPCS: 36415; 70496; 70498; 80048; 80061; 82962; 83735; 84443; 84484; 85025; 85610; 85730; 92523; 92610; 93005; 93306; 94762; 96360; 96361; 96372; 97161; 99218; 99285; J7030; Q9967; A4216; G0378

== ENCOUNTER → 2019-11-14 15:57 | Outpatient (CLI) | payer OTHER, SELFPAY ==
[2019-11-14 15:36] VITALS: BMI 22.9
[2019-11-14 16:47] LABS: CPK Total, Creatine Kinase 67 U/L (26-192)
[2019-11-17 14:55] LABS: Myoglobin, Serum 24 ng/mL (25-58)
== END ==
PROVIDERS: PCP Family Medicine; Referring Provider Psychiatry & Neurology Neurology; Visit Provider Psychiatry & Neurology Neurology
DX: R35.1 Nocturia (principal)
CPT/HCPCS: 36415; 82550; 83874

== ENCOUNTER → 2020-07-03 14:09 | Outpatient (CLI) | payer OTHER, SELFPAY ==
[2020-06-23 13:42] VITALS: BMI 23.8
--- NOTE | 2020-07-03 14:13 | MRI_ITS ---
HISTORY: CVA EXAMINATION: MR Brain WO/W Contrast TECHNIQUE: Multiplanar and multisequence MR images of the brain were obtained with and without IV gadolinium. IV Contrast dosage and agent: 13CC DOTAREM COMPARISON: 09/28/19 FINDINGS: BRAIN PARENCHYMA: No MRI evidence of hemorrhage. No evidence of acute infarct. No intracranial mass or mass effect. No abnormal enhancement. There is preservation of the hernandez/white matter interface. Normal sella turcica, pituitary gland, infundibular stalk, optic chiasm and hypothalamus. The internal auditory canals are patent. Posterior fossa structures are unremarkable. CSF SPACES: Appropriate for age. No hydrocephalus. Basal cisterns are patent. VASCULAR SYSTEM: Normal flow voids in the major intracranial circulation. CALVARIUM, SKULL BASE, PARANASAL SINUSES AND MASTOID AIR CELLS: Clear. No discrete lytic or blastic abnormalities. ORBITS: Both globes, extraocular muscles, optic nerves and retrobulbar fat appear unremarkable. MRI/Brain W/WO Contrast IMPRESSION: Unremarkable pre and post-contrast MRI brain. at 1613 Reported and signed by: Matt Doherty MD Electronically Signed: Matt Doherty MD at 16:12 EDT Tel , Service support ,
== END ==
PROVIDERS: PCP Family Medicine; Referring Provider Psychiatry & Neurology Neurology; Visit Provider Psychiatry & Neurology Neurology
DX: Z86.73 Personal history of transient ischemic attack (TIA), and cerebral infarction without residual deficits (principal)
CPT/HCPCS: 70553; A9575

== ENCOUNTER → 2020-08-06 15:16 | Outpatient (CLI) | payer OTHER, SELFPAY ==
[2020-06-23 13:42] VITALS: BMI 23.8
[2020-08-11 11:00] LABS: HPV HC, High Risk NEGATIVE
== END ==
PROVIDERS: PCP Family Medicine; Visit Provider Family Medicine
DX: Z12.4 Encounter for screening for malignant neoplasm of cervix (principal)
CPT/HCPCS: 87624; 88175; G0145

== ENCOUNTER → 2020-08-07 07:06 | Outpatient (CLI) | payer OTHER, SELFPAY ==
[2020-06-23 13:42] VITALS: BMI 23.8
[2020-08-07 10:06] LABS: Absolute Lymphocyte Count 1.31 X10^3/uL (0.83-4.51); Basophil# 0.06 X10^3/uL; Basophil% 1.6 % (0-1); Eosinophil# 0.14 X10^3/uL; Eosinophils% 3.7 % (0-5); Hematocrit 43.7 % (37-47); Hemoglobin 14.2 g/dL (12.0-15.0); Lymphocyte # 1.31 X10^3/ul (0.83-4.51); Lymphocyte % 34.5 % (19-41); Mean Corp Hgb Conc 32.5 g/dL (32-36); Mean Corpuscular Hgb 31.2 pg (27.0-32.0); Mean Platelet Vol. 11.4 fl (6.2-12.0); Monocyte# 0.32 X10^3/uL; Monocyte% 8.4 % (0-10); NRBC Flagged by Analyzer 0 % (0-5); Neutrophil # 1.96 X10^3/uL (2.7-7.7); Neutrophil % 51.5 % (47-70); Platelet Count 236 K/mm3 (150-450); RBC Distribution Width CV 12.5 % (11.6-14.6); RBC Distribution Width SD 44.3 fl (35.1-43.9); Red Blood Count 4.55 M/mm3 (4.2-5.4); White Blood Count 3.8 K/mm3 (4.4-11.0)
[2020-08-07 10:27] LABS: ALB/GLOB Ratio 1.1 RATIO (0.9-2.4); AST(SGOT) 18 U/L (15-37); Alanine Aminotransfer ALT/SGPT 20 U/L (13-56); Albumin, Serum 3.8 g/dL (3.2-5.0); Alkaline Phosphatase 88 U/L (45-117); Anion Gap 5 (5-15); BUN 11 mg/dL (7-18); BUN/Creat Ratio 11.3 RATIO (10-20); Calcium,Total 8.8 mg/dL (8.5-10.1); Chloride 107 mmol/L (98-107); Cholesterol 198 mg/dL (200); Creatinine, Serum 0.97 mg/dL (0.55-1.02); EST Glomerular Filtration Rate 62 mL/min (>60); Est Glom Filt Rate - Afr Amer 75 mL/min (>60); Globulin 3.6 g/dL (2.2-4.2); Glucose 86 mg/dL (74-106); High Density Lipoprotein 59 mg/dL; Magnesium 2.5 mg/dL (1.6-2.6); Potassium 3.7 mmol/L (3.5-5.1); Protein, Total 7.4 g/dL (6.4-8.2); Sodium Level 141 mmol/L (136-145); Thyroid Stim Hormone (TSH) 1.95 uIU/mL (0.358-3.74); Triglycerides 72 mg/dL; Very Low Density Lipoprotein 14 mg/dL (5-40)
== END ==
PROVIDERS: PCP Family Medicine; Referring Provider Family Medicine; Visit Provider Family Medicine
DX: K58.9 Irritable bowel syndrome, unspecified (principal); Z51.81 Encounter for therapeutic drug level monitoring
CPT/HCPCS: 36415; 80053; 80061; 83735; 84443; 85025

== ENCOUNTER → 2020-08-14 06:59 | Outpatient (CLI) | payer OTHER, SELFPAY ==
[2020-06-23 13:42] VITALS: BMI 23.8
--- NOTE | 2020-08-14 07:01 | BI_ITS ---
MAMMOGRAPHY - BILATERAL SCREENING REASON FOR EXAM: Female, 59 years old. Routine annual screening examination. PERTINENT HISTORY: Non-contributory. Occasional left breast tenderness. TECHNIQUE: Digital bilateral breast jeronimo (3D mammographic acquisition) in the CC and MLO projections. 2-D mediolateral oblique (MLO) and craniocaudad (CC) views of both breasts were obtained. CAD: Full Field Digital Mammography with Computer Added Detection was performed. COMPARISON: Comparison is made with prior study dated 08/13/2019 and 09/26/2018. FINDINGS: Breast Composition: The breasts are heterogeneously dense, which may obscure small masses. There are no dominant masses or suspicious calcifications. No other significant abnormalities are identified. There has been no significant change since the prior study. BI/SCRN MAMM (CAD)W/JERONIMO BILAT IMPRESSION: Stable bilateral screening mammogram. Yearly follow-up mammogram recommended. (A) ASSESSMENT CATEGORY: BIRADS Category 1: Negative. A letter regarding these results will be sent to the patient by the facility within 30 days. Approximately 10% of breast cancers are not detected by mammography. A normal mammogram should not delay biopsy of a clinically suspicious abnormality. [id number] Electronically Signed: Rosas Gutierrez MD at 8:31 EDT , Service support ,
== END ==
PROVIDERS: PCP Family Medicine; Referring Provider Family Medicine; Visit Provider Family Medicine
DX: Z12.31 Encounter for screening mammogram for malignant neoplasm of breast (principal)
CPT/HCPCS: 77063; 77067

== ENCOUNTER 2020-09-22 05:45 | Day surgery (SDC) | payer OTHER, SELFPAY ==
[2020-08-20 07:41] VITALS: BMI 23.5
[2020-08-25 13:28] VITALS: BMI 23.5
[2020-09-16 10:17] LABS: Hematocrit 42.3 % (37-47); Hemoglobin 13.5 g/dL (12.0-15.0); Mean Corp Hgb Conc 31.9 g/dL (32-36); Mean Corpuscular Hgb 30.3 pg (27.0-32.0); Mean Corpuscular Volume 95.1 fL (81-99); Mean Platelet Vol. 11.1 fl (6.2-12.0); Platelet Count 233 K/mm3 (150-450); RBC Distribution Width CV 12.5 % (11.6-14.6); RBC Distribution Width SD 43.6 fl (35.1-43.9); Red Blood Count 4.45 M/mm3 (4.2-5.4); White Blood Count 4.1 K/mm3 (4.4-11.0)
[2020-09-16 10:54] LABS: Anion Gap 4 (5-15); BUN 14 mg/dL (7-18); BUN/Creat Ratio 14.1 RATIO (10-20); Calcium,Total 8.7 mg/dL (8.5-10.1); Chloride 105 mmol/L (98-107); EST Glomerular Filtration Rate 60 mL/min (>60); Est Glom Filt Rate - Afr Amer 73 mL/min (>60); Glucose 87 mg/dL (74-106); Potassium 3.7 mmol/L (3.5-5.1); Sodium Level 139 mmol/L (136-145)
[2020-09-22] VITALS (7 sets, daily range): BP systolic 139–177; BP diastolic 61–96; PULSE 57–79; RESP 16–18; TEMP 36.2–36.6; O2SAT 92–100; BMI 22.7
--- NOTE | 2020-09-22 | IMM_PTH ---
PATIENT: MAGGI LISA LOC: [facility] – [place] U#:[id number] AGE/SX: 59/F ROOM: RE09/22/[address]: Dr. Gilmar Del Rosario MD : 1960 BED: DIS: 09/22/2020 SPEC #: [id number] RECD: 09/23/20 12:36 STATUS: LOIRE REQ #: [id number] KARY: 09/22/20 00:[address]: Gilmar Del Rosario DEPT: IMMUNOHISTOCHEMISTRY RECD BY: Saumya Sanabria ENTERED: 09/23/20 12:37 SP TYPE: IMMUNO OTHR DR: Dr. Ron Cunningham MD Tissues: HEMORRHOIDS Procedures: p16 (initial) KI-67 (add) PHYSICIAN & INSTITUTION [place] [address] SPECIMEN INFORMATION: Tissue Source: Hemorrhoids Clinical Info: Hemorrhoids Specimen Number: [id number] #2 CPT code: 16218, 20193 METHODOLOGY: Deparaffinized sections of prefer/formalin-fixed tissue or PAP/DQ stained slides are incubated with monoclonal/polyclonal antibodies/oligonucleotide probes. Localization is made via biotin free immunoperoxidase method. Appropriate controls are performed and reacted as expected. Results on target cell population are indicated in the following table: RESULTS: ANTIBODY / CLONE RESULT Block 2 P16 (E6H4) positive, focal and patchy Ki-67 (30-9) positive, low These tests were developed and their performance characteristics determined by [facility]. They may not have been cleared or approved by the U.S. Food and Drug Administration. The FDA has determined that such clearance or approval is not necessary. The above immunohistochemical/dualISH markers are ordered and reviewed by the Pathologist. INTERPRETATION: Hemorrhoids, hemorrhoidectomy: Focal mild squamous dysplasia. SJ:gumaro 09/24/2020 Case has been reviewed in consultation with Dr. Grigsby who concurs with the above diagnosis. IDC:AM
--- NOTE | 2020-09-22 05:54 | PCM.HP.BLA ---
History and Physical Date of Admission: 09/22/20 Intake Visit Reasons: HEMMORRHOIDS VS RECTAL PROLAPSE Chief Complaint: hemorrhoids/ rectal pressure [employer] Required: No Accompanied by: Self Is patient in pain?: No (not pain just pressure) Allergies diltiazem Allergy (Intermediate, Verified 08/20/20 07:43) rash atenolol [From Tenormin] Allergy (Unknown, Verified 08/20/20 07:43) Rash ciprofloxacin HCl [From Cipro] Allergy (Unknown, Verified 08/20/20 07:43) Unknown doxycycline hyclate [From Doryx] Allergy (Unknown, Verified 08/20/20 07:43) Unknown meloxicam [From Mobic] Allergy (Unknown, Verified 08/20/20 07:43) Rash Sulfa (Sulfonamide Antibiotics) Allergy (Unknown, Verified 08/20/20 07:43) Rash tetracycline Allergy (Verified 08/20/20 07:43) Unknown metoprolol Adverse Reaction (Intermediate, Verified 08/20/20 07:43) Bradycardia doxycycline [From Doryx] Adverse Reaction (Mild, Verified 08/20/20 07:43) Rash bupivacaine [From Exparel (PF)] Adverse Reaction (Verified 08/20/20 07:43) PT UNSURE OF REACTION cisatracurium Adverse Reaction (Verified 08/20/20 07:43) PT UNSURE OF REACTION succinylcholine Adverse Reaction (Verified 08/20/20 07:43) PT UNSURE OF REACTION ELECTRODE PATCHES Allergy (Uncoded 08/20/20 07:43) Rash Medications calcium carbonate-vitamin D3 1 ea PO DAILY 03/10/15 [History Confirmed 08/20/20] erythromycin 5 mg/gram (0.5 %) eye ointment 1 applic OPHTHALMIC DAILY PRN 08/14/19 [History Confirmed 08/20/20] triamcinolone acetonide 0.025 % topical cream 1 applic TOPICAL DAILY PRN 08/14/19 [History Confirmed 08/20/20] psyllium husk (aspartame) 1 packet PO DAILY 08/21/19 [History Confirmed 08/20/20] coenzyme Q10 100 mg capsule 100 mg PO DAILY 12/24/19 [History Confirmed 08/20/20] apixaban 5 mg tablet 5 mg PO BID #180 tablet 06/04/20 [Rx Confirmed 08/20/20] magnesium oxide 400 mg (241.3 mg magnesium) tablet 400 mg PO DAILY tablet 06/04/20 [History Confirmed 08/20/20] flecainide 50 mg tablet 50 mg PO BID #180 tab 08/17/20 [Rx Confirmed 08/20/20] [facility] Medical History (Updated 08/20/20 @ 08:[address] Gilmar Del Rosario MD) Arthritis Back problem Essential hypertension Fatigue Frequent UTI Gallstones Hemorrhoids History of CVA (cerebrovascular accident) (09/30/19) Hyperlipidemia Nonsustained ventricular tachycardia Palpitations Paroxysmal atrial flutter (01/29/13) Psoriatic arthritis Rectal pressure Sleep apnea Surgical History (Updated 08/20/20 @ 07:40 by Donna Herman) History of appendectomy (11/2011) History of cholecystectomy History of dilatation and curettage History of esophagogastroduodenoscopy (EGD) History of hemorrhoidectomy (~07/2019) History of left heart catheterization (03/11/15) Hx of colonoscopy Family History Father CAD (coronary artery disease) MT and CABG in 60's Hypertension High cholesterol Prostate cancer Mother High cholesterol Hypertension Skin cancer COPD (chronic obstructive pulmonary disease) Social History (Updated 08/20/20 @ 07:41 by Donna Herman) Smoking Status: Never smoker second hand exposure: No alcohol intake: current alcohol intake frequency: a few times a month substance use type: does not use caffeine: Yes (rarely) what type of physical activity do you participate in: walking and yoga frequency: daily HPI HPI HPI: MAGGI LISA, is a 59 F who presents to the office today for surgical consultation regarding recurrent hemorrhoidal disease versus rectal prolapse. My previous notes from September 18, 2019 reflect the following.58-year-old female. She is status post a PPH stapled hemorrhoidopexy on August 28, 2019. This was performed because of rectal bleeding. Her rectal bleeding ceased immediately. She actually has not had much trouble whatsoever post procedure. She is taking a combination of fiber supplementation and MiraLAX. She has no specific concerns. On this occasion she was referred by her primary care physician Dr. Ron Cunningham and a written copy of my surgical consult and recommendations will return to him. The patient states that only occasionally when she will wipe post defecation does she notice some blood on the tissue. Her prehemorrhoidopexy bleeding problems though have resolved. 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 She is cared for by Dr. Shelby and Dr Negrete. Currently the patient has been instructed that she will need to be on lifelong Eliquis therapy. She has not had any recurrent events since her initial problem. She otherwise denies abdominal pain. Her biggest concern however is anal rectal pain. A feeling of fullness and incomplete defecation ROS General General: Yes fatigue; No weight change, appetite, colon cancer, breast cancer or weakness HEENT HEENT: No difficulty swallowing, eye injury, eye surgery, swollen glands or hoarseness Endo Endocrine: No thyroid disease, diabetes mellitus, thyroid cancer, Hair loss, heat intolerance or cold intolerance Skin Skin: No rash or changing moles [facility] Musculoskeletal: Yes back problems and arthritis; No rheumatoid arthritis, gout or joint pain Cardio Cardiovascular: Yes murmur and high blood pressure; No pacemaker, heart disease, atrial fibrillation, heart attack, heart stent, palpitations, shortness of breat with exertion or chest pain Psych Psychiatric: No depression, anxiety or hearing voices Resp Respiratory: No shortness of breath, No sleep apnea, No cough, No COPD, No asthma, No emphysema and No wheezing Gastro Gastrointestinal: Yes abdominal pain, No nausea or vomiting, No diarrhea, No constipation, Yes blood in stool, No acid reflux, Yes hemorrhoids, No ulcers, No gallbladder problem and No black,tarry stools Srinivas Hematologic: Yes blood thinners, No blood disorders, No bleeding, No anemia and No blood clots Neuro Neurologic: Yes numbness, Yes tingling and No weakness Exam Const General: cooperative, healthy appearing, comfortable and no acute distress Nutritional Appearance: average body habitus Orientation: alert and awake [facility] Head: normal to inspection Eyes General: appearance normal, both eyes and all related structures Resp Effort & Inspection: normal respiratory effort Auscultation: clear to auscultation bilaterally Cardio Rate: regular rate Rhythm: regular rhythm GI Palpation: soft and no hepatosplenomegaly Other: Anal rectal examination demonstrates grade 4 internal and external hemorrhoids. There is tender prolapsing internal tissue that somewhat friable. Digital exam demonstrates significant engorgement of the hemorrhoidal tissue. No active bleeding at this time. [facility] Cervical Spine: normal cervical lordosis Skin General: no rashes or lesions noted Neuro General: patient alert and patient awake Extrem General: no calf tenderness bilaterally Psych Appearance: grossly normal COVID (Procedure Consent) Procedure Criteria Procedure Criteria: Yes Elective The surgeon/proceduralist and patient have discussed in detail the risk of exposure to and/or potential harm posed by the COVID-19 virus with having a surgery/procedure at this time versus the risk of delaying the surgery/procedure. It is not possible to know either the risk of delaying the surgery or procedure or chance of getting an infection with perfect accuracy, but a joint decision was made between the patient and the surgeon/proceduralist to proceed at this time with the scheduled surgery/procedure as indicated on the consent form. Assessment and Plan Assessment and Plan (1) Hemorrhoids: Status: Chronic Qualifiers: Hemorrhoid type: fourth degree Qualified Code(s): K64.3 - Fourth degree hemorrhoids Plan Details Additional Comments: 59-year-old female. Although the PPH stapled hemorrhoidopexy is solve the rectal bleeding she has persistently symptomatic fourth degree internal and external hemorrhoids. I recommended the patient a surgical hemorrhoidectomy any great detail I have discussed technique, benefit, risk, alternatives. The patient currently is on Eliquis therapy. This will need to be held at least 2 days preoperatively. I recommended the patient that I have a discussion with her solid plasterer Dr. Ozzie Shelby. At this point it would seem reasonable to me to initiate a low-dose 81 mg aspirin therapy and ceased the Eliquis therapy. Because of the extent of her hemorrhoidal disease I believe one of the postoperative risks would be postsurgical bleeding. She has had an opportunity to ask and have questions answered. She is quite symptomatic currently. She would like to proceed with intervention. We will schedule procedure at her discretion. Copy: Dr. Ron Cunningham and Dr. Ozzie Shelby and Dr. Derrell Del Rosario M.D., F.A.C.S. I have re-examined the patient. There are no clinical changes since date of exam.
[2020-09-22] MEDS: Lactated Ringers 1,000 ML 100 ML IV (06:32)
[2020-09-22] MEDS: Cefotetan 2 GM in 0.9% NS 100 ML IV (07:24)
--- NOTE | 2020-09-22 07:30 | HEM_PTH ---
PATIENT: MAGGI LISA [place]: [facility] [place] U#:[id number] AGE/SX: 59/F ROOM: RE09/22/[address]: Dr. Gilmar Del Rosario MD : 1960 BED: DIS: 09/22/2020 SPEC #: [id number] RECD: 09/22/20 11:06 STATUS: LORIE REAkbar #: [id number] KARY: 09/22/20 07:[address]: Gilmar Del Rosario DEPT: SURGICAL PATHOLOGY RECD BY: Kaylie Prather ENTERED: 09/22/20 11:40 SP TYPE: HEMORRHOID OTHR DR: Dr. Ron Cunningham MD Tissues: HEMORRHOIDS Procedures: Surgery Specimen Level IV HEADER OPERATION: Hemorrhoidectomy PRE-OP DIAGNOSIS: Fourth degree hemorrhoids TISSUE SUBMITTED: Hemorrhoids MICROSCOPIC DIAGNOSIS Hemorrhoids, hemorrhoidectomy: Pieces of anorectal mucosa with dilated and congested blood vessel, consistent with hemorrhoids. Focal mild squamous dysplasia. Focal ulceration with associated inflammation, hyperkeratosis and parakeratosis See comment. ANTONINA:gumaro 09/24/2020 COMMENT The bateman solid area consists of smooth muscle bundle, may represents muscularis propria. The resection margins are free of dysplastic changes. Immunohistochemistry ([id number]) for surrogate HPV marker (p16) supports the above diagnosis. Case has been reviewed in consultation with Dr. Grigsby who concurs with the above diagnosis. IDC:AM MICROSCOPIC DESCRIPTION Slides are reviewed. GROSS DESCRIPTION Received in fixative is one container labeled with the patient's name and designated hemorrhoids. The specimen consists of three variably sized pieces of pink, congested mucosal tissue that in aggregate measure 5.5 x 3 x 2.5 cm. Sections reveal congested and hemorrhagic cut surfaces. A focal bateman solid area is noted in the largest piece measuring 1 cm in greatest dimension. Transitional Care Liaison sections are submitted in two cassettes. The solid area is submitted in entirety. / ANTONINA:gumaro 09/22/20 The rest of the specimen is submitted in seven more cassettes, 3-9. / ANTONINA:gumaro 09/23/20 TC:5 CPT: 87759
--- NOTE | 2020-09-22 07:32 | DCINST_ITS ---
Discharge Instructions Procedure Rectal Surgery Diet Discharge Diet: No restrictions Activity Discharge Activity: Return to Normal Activity and May Not Drive (while you are taking narcotic pain medications. Do not drive, work with heavy equipment or s ign legal documents for 24 hours after your surgery.) Additional Activity Instructions:: Do not drive or work with heavy equipment or sign legal documents for 24 hours. Be aware that pain medications may cause nausea. You should typically eat light foods as you take your pain medications. Pain medications may also cause constipation, if you have difficulty with this please discuss with your doctor. Dressing / Incision Additional Dressing/Incision Instructions:: Leave the operative bandage on for 2 days. If a local anesthetic plug was placed in the anal area, try not to expel for 24-[address] dibucaine ointment on the perianal area as needed. Sitz baths twice daily and after bowel movements. Follow Up Care Please Follow Up With: Gilmar Del Rosario MD When: Call [phone] to set up appointment to be seen 7 days after surgery. Test Results: Test results from this visit will be discussed in further detail at your follow-up appointment, if applicable. Discharge Plan Admission Attending Provider: Gilmar Del Rosario Primary Care Provider: Ron Cunningham Discharge Orders/Prescriptions Prescriptions: No Action triamcinolone acetonide 0.025 % cream 1 applic TOPICAL DAILY PRN (Reason: skin irritation) RF: 0 erythromycin 5 mg/gram (0.5 %) ointment 1 applic OPHTHALMIC DAILY PRN (Reason: eye irritation) RF: 0 magnesium oxide 400 mg (241.3 mg magnesium) tablet 400 mg PO DAILY RF: 0 coenzyme Q10 [CoQ-10] 100 mg capsule 100 mg PO DAILY RF: 0 calcium carbonate-vitamin D3 [Caltrate with Vitamin D3] 1 EACH tablet 1 ea PO DAILY RF: 0 aspirin 81 mg Tablet 81 mg PO BID RF: 0 Eliquis 5 mg tablet 5 mg PO BID RF: 0 flecainide 50 mg tablet 50 mg PO BID Qty: 180 RF: 3
[2020-09-22] MEDS: Bupivacaine Mpf 0.5% 30 ML VIAL (08:26)
[2020-09-22] MEDS: Dibucaine 30 GM Tube 1 APPLIC (08:26)
[2020-09-22] MEDS: Lubricating Jelly 60 GM Tube 30 GM TOPICAL (08:28)
--- NOTE | 2020-09-22 08:33 | PCM.OPRPT ---
Problems Associated Problem List Diagnoses (1) Hemorrhoids: (2) Rectal pressure: Report of Operation Date of Procedure: 09/22/20 Pre-Operative Diagnosis: Grade 4 internal and external hemorrhoids Post-Operative Diagnosis: Same Surgery/Procedure Performed:: Extensive surgical hemorrhoidectomy Description of Surgical Findings:: Timeout and informed consent was obtained. 59-year-old female was taken to the operating placed initially supine on the table. Cefotetan 2 g were given intravenously. She underwent general endotracheal intubation and anesthesia. She was then placed prone jackknife on the table with careful padding of the pelvis and shoulders. The buttock area was carefully taped for exposure. The perianal area was prepped with Betadine solution. She had exuberant hemorrhoids. Large conglomerate both on the right and left lateral with a smaller component anteriorly. Speculum was inserted. Apical occluding suture of simple 0 Vicryl was placed. Then a 2-0 chromic apical suture was placed. The exuberant internal and external hemorrhoidal tissue was elliptically completely excised with scalpel dissection externally and then harmonic scalpel dissection. The mucosa was approximated with running locking 2-0 chromic with some interspersed interrupted 0 Vicryl sutures. This was performed right and left lateral. The anterior amount of tissue was slightly less exuberant but the same technique was utilized. At the completion of the procedure the vast bulk of the hemorrhoidal tissue had been excised. The anus was still patent. The perianal tissue was anesthetized with 0.5% Marcaine. Exparel was avoided because of the patient's previous problems during her PPH stapled hemorrhoidopexy when she had some arm numbness and weakness postoperatively. Careful aspiration with the Marcaine was performed assuring subcutaneous deposition. Then dibucaine ointment Vaseline gauze was inserted followed by cover dressing. Sponge and instrument and needle counts were reported to the surgery correct. Blood loss was minimal. Specimens multiple hemorrhoids. Drains none. Blood loss minimal. The patient was taken to the recovery area in satisfactory addition apparent complication. Gilmar Del Rosario M.D., F.A.C.S. Surgeon: Gilmar Del Rosario Type of Anesthesia: General and Local Anesthesiologist: Wilber Ritter
== END 2020-09-22 10:30 | disposition home or self-care (01) ==
LOC: SDC 05:46 → AC 05:46
PROVIDERS: Anesthesiology; PCP Family Medicine; Referring Provider Surgery; Visit Provider Surgery
PROC: (CPT 46260; principal; 2020-09-22 07:15)
DX: K64.3 Fourth degree hemorrhoids (principal); I47.2 Ventricular tachycardia; I10 Essential (primary) hypertension; E78.5 Hyperlipidemia, unspecified; M19.90 Unspecified osteoarthritis, unspecified site; Z79.01 Long term (current) use of anticoagulants; Z79.82 Long term (current) use of aspirin; Z79.899 Other long term (current) drug therapy; Z86.73 Personal history of transient ischemic attack (TIA), and cerebral infarction without residual deficits
CPT/HCPCS: 46260; 36415; 80048; 85027; 88304; 88305; 88341; 88342; J7120; J2405

== ENCOUNTER → 2021-07-28 | Outpatient (CLI) | payer OTHER, SELFPAY ==
[2021-07-28 10:05] LABS: Absolute Lymphocyte Count 1.31 X10^3/uL (0.83-4.51); Absolute Neutrophil Count 2.2 X10^3/uL (2.0-7.7); Basophil# 0.05 X10^3/uL; Basophil% 1.2 % (0-1); Eosinophil# 0.13 X10^3/uL; Eosinophils% 3.2 % (0-5); Hematocrit 41.7 % (37-47); Hemoglobin 13.8 g/dL (12.0-15.0); Lymphocyte # 1.31 X10^3/ul (0.83-4.51); Lymphocyte % 32.3 % (19-41); Mean Corp Hgb Conc 33.1 g/dL (32-36); Mean Corpuscular Hgb 31.2 pg (27.0-32.0); Mean Corpuscular Volume 94.1 fL (81-99); Mean Platelet Vol. 11.1 fl (6.2-12.0); Monocyte# 0.31 X10^3/uL; Monocyte% 7.7 % (0-10); NRBC Flagged by Analyzer 0 % (0-5); Neutrophil # 2.24 X10^3/uL (2.7-7.7); Neutrophil % 55.4 % (47-70); Platelet Count 232 K/mm3 (150-450); RBC Distribution Width CV 12.3 % (11.6-14.6); RBC Distribution Width SD 42.8 fl (35.1-43.9); Red Blood Count 4.43 M/mm3 (4.2-5.4); White Blood Count 4.1 K/mm3 (4.4-11.0)
[2021-07-28 10:44] LABS: ALB/GLOB Ratio 1.1 RATIO (0.9-2.4); AST(SGOT) 27 U/L (15-37); Alanine Aminotransfer ALT/SGPT 27 U/L (13-56); Albumin, Serum 4.1 g/dL (3.2-5.0); Alkaline Phosphatase 83 U/L (45-117); Anion Gap 8 (5-15); BUN 16 mg/dL (7-18); BUN/Creat Ratio 15.4 RATIO (10-20); CRP, High Sensitivity Cardiac 2.64 mg/L; Calcium,Total 9.5 mg/dL (8.5-10.1); Chloride 105 mmol/L (98-107); Cholesterol 209 mg/dL (200); Creatinine, Serum 1.04 mg/dL (0.55-1.02); EST Glomerular Filtration Rate 57 mL/min (>60); Est Glom Filt Rate - Afr Amer 69 mL/min (>60); Globulin 3.7 g/dL (2.2-4.2); Glucose 90 mg/dL (74-106); High Density Lipoprotein 60 mg/dL; Potassium 3.8 mmol/L (3.5-5.1); Protein, Total 7.8 g/dL (6.4-8.2); Sodium Level 140 mmol/L (136-145); Triglycerides 73 mg/dL; Very Low Density Lipoprotein 15 mg/dL (5-40)
== END | disposition home or self-care (01) ==
LOC: MTLAB 07:02
PROVIDERS: PCP Family Medicine; Referring Provider Family Medicine; Visit Provider Family Medicine
DX: K58.9 Irritable bowel syndrome, unspecified (principal); E78.5 Hyperlipidemia, unspecified
CPT/HCPCS: 36415; 80053; 80061; 85025; 86141

== ENCOUNTER → 2021-08-31 | Outpatient (CLI) | payer OTHER, SELFPAY ==
--- NOTE | 2021-08-31 07:36 | BI_ITS ---
MAMMOGRAPHY - BILATERAL SCREENING REASON FOR EXAM: Female, 60 years old. Routine annual screening examination. PERTINENT HISTORY: Non-contributory. TECHNIQUE: Digital bilateral breast jeronimo (3D mammographic acquisition) in the CC and MLO projections. 2-D mediolateral oblique (MLO) and craniocaudad (CC) views of both breasts were obtained. CAD: Full Field Digital Mammography with Computer Added Detection was performed. COMPARISON: Comparison is made with prior study dated 08/14/2020 and 08/13/2019. FINDINGS: Breast Composition: The breasts are heterogeneously dense, which may obscure small masses. There are no dominant masses or suspicious calcifications. Stable small benign-appearing bilateral axillary lymph nodes. No other significant abnormalities are identified. There has been no significant change since the prior study. BI/SCRN MAMM (CAD)W/JERONIMO BILAT IMPRESSION: Stable bilateral screening mammogram. Yearly follow-up mammogram recommended. (A) ASSESSMENT CATEGORY: BIRADS Category 2: Benign. A letter regarding these results will be sent to the patient by the facility within 30 days. Approximately 10% of breast cancers are not detected by mammography. A normal mammogram should not delay biopsy of a clinically suspicious abnormality. [id number] Electronically Signed: Rosas Gutierrez MD at 9:32 EDT ,
== END | disposition home or self-care (01) ==
LOC: OPBI 07:34
PROVIDERS: PCP Family Medicine; Visit Provider Family Medicine
DX: Z12.31 Encounter for screening mammogram for malignant neoplasm of breast (principal)
CPT/HCPCS: 77063; 77067

== ENCOUNTER 2021-12-16 14:30 | Outpatient (RCR) | payer OTHER, SELFPAY ==
--- NOTE | 2021-11-19 14:18 | HP.PTEVAL ---
Patient's Visit Information MAGGI LISA is a 61 year old F referred to Physical Therapy by Dr. Ron Cunningham MD with a diagnosis of Lumbar back strain. Date of Evaluation: 11/19/21 Physical Therapist: Ron Sanches, DPT, OCS, CSCS - Visit Plan Frequency: 2-3x /Week Duration: 2-4 Weeks Plan: 2-3x/week for 2-4 weeks for aquatic therapy per script to work on LB extension ROM, posture, core and LE strength adn return to functional workout. Ensure back pain improving as weans off steroids. - Subjective Increase in back pain 13 days ago. She was weeding [employer] abd got a sudden twinge of pain. Tried to work it out with ball exercises that are strengthening and PPU. Got worse and worse. Pain was across LB and then focussed lower R and into R hip. It was 10 and could not stand up straight and had to move slow to get up chair and in am. Once she was up she could move but always painful to transition. No recent back pain prior. Does back ex everyday. Works out everyday on [employer] but cannot do that lately. 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 has had to get up and move every 15 min. Only missed one day due to this. No leg symptoms of numbness or tingling. No bowel or bladder problems. Today is 60% better overall. Yesterday was far worse. - Objective Walks stiff adn slow and slight R antalgia but up right and I. Trasnfers slow but I. Steps are reciprocal . LB AROM ext max limited, B SB min limited. Flexion slow but full. - slump. - SLR. reflexes 2/3 patella and achilles. Sensation LE WNL to gross light touch. Flexibility is good in LE. Strength LE 4-/5 without pain, core 3+ without pain today. Posture is poor with flat lordosis and hunched. - Balance/Special Test Scores Oswestry Low Back Score: 23 - Goals Goal 1:: LBP 1/10 at worst and 95% better overall Goal Time Frame: 4-6 Weeks Goal 2:: Patient have only min dieficits in LB extension and pianfree Goal Time Frame: 4-6 Weeks Goal 3:: I appropr management of condition Goal Time Frame: 4-6 Weeks Goal 4:: oswestry score 5 or better Goal Time Frame: 4-6 Weeks Goal 5:: back to regular home workouts without pain Goal Time Frame: 4-6 Weeks - Rehabilitation Potential Physical Therapy Diagnosis: LBP likely discal pathology effecting function Rehabilitation Potential: Good - Anticipated Interventions Patient/Client Instruction: Educate patient on: Condition, Plan of Care For the Purpose of:: To decrease pain, To increase ROM, To improve nutrient delivery to tissue, To increase tolerance to activity/condition/position, To improve ability of physical actions for home/community/work/leisure Therapeutic Exercise to Include: Strength training, Postural training, Flexibilty training, In an aquatic setting, Passive ROM, Active ROM, Sadiq Exercises For the Purpose of:: To decrease pain, To increase ROM, To improve muscle performance and motor function, To increase tolerance to activity/condition/position, To improve ability of physical actions for home/community/work/leisure Thank you for the opportunity to evaluate your patient. For Medicare and Medicare HMO plans, please review the plan of care and approve it. It will need to be FAXED BACK to us at [phone] for Medicare purposes. For Medicare only, by signing this I certify the plan of care. Please let me know if there are questions or concerns regarding this plan of care. Physician Signature: Date:
--- NOTE | 2021-12-06 13:57 | HP.PTREVAL ---
Dr. Ron Cunningham MD, It has been my pleasure to treat MAGGI LISA over the last 7 visits for Lumbar back strain. Please see the progress note below for an update on the physical therapy plan of care! Subjective: I can walk without discomfort now. Slight pain in r lateral hip with ambulation but just a little. Feels good after water therapy. Doing stuff at home makes her worse. Dusting and laundry make her worse. No real bad pain. No f/u scheduled with doctor. Objective/Function: L/S AROM is improving and still stiff in flexion adn B SB R>L today. Walking well and steps without issues today. On the right track. Plan Plan: 2x/week for 2 weeks to frinish time in the pool, please get more aggressive with SB and rotation of L/S, T/S in water and to HEP, Pt to start some of her home yoga and calisthenics gently and progress as tolerated. No f/u with PT necessary unless symptoms worsen. progress HEP. Balance/Gait/Functional tests - Balance/Special Test Scores Oswestry Low Back Score: 6 Goals Goal 1:: LBP 1/10 at worst and 95% better overall Goal Time Frame: 4-6 Weeks Goal Progress: 80% Goal 2:: Patient have only min dieficits in LB extension and pianfree Goal Time Frame: 4-6 Weeks Goal 3:: I appropr management of condition Goal Time Frame: 4-6 Weeks Goal Progress: Goal Met Goal 4:: oswestry score 5 or better Goal Time Frame: 4-6 Weeks Goal Progress: Progressing Goal 5:: back to regular home workouts without pain Goal Time Frame: 4-6 Weeks Goal Progress: Progressing Anticipated Interventions Patient/Client Instruction: Educate patient on: Condition, Plan of Care For the Purpose of:: To decrease pain, To increase ROM, To improve nutrient delivery to tissue, To increase tolerance to activity/condition/position, To improve ability of physical actions for home/community/work/leisure Therapeutic Exercise to Include: Strength training, Postural training, Flexibilty training, In an aquatic setting, Passive ROM, Active ROM, Sadiq Exercises For the Purpose of:: To decrease pain, To increase ROM, To improve muscle performance and motor function, To increase tolerance to activity/condition/position, To improve ability of physical actions for home/community/work/leisure Please do not hesitate to contact me at [phone] by phone or if you have questions or concerns regarding this new plan of care! Sincerely, Ron Sanches, DPT, OCS, CSCS
--- NOTE | 2022-01-28 14:08 | HP.PT.NRP ---
MAGGI LISA was seen in my office for initial evaluation on 11/19/21. The following Plan of Care was established for this patient: Initial Frequency: 2-3x /Week Initial Duration: 2-4 Weeks Patient/Client Instruction: Educate patient on: Condition, Plan of Care For the Purpose of:: To decrease pain, To increase ROM, To improve nutrient delivery to tissue, To increase tolerance to activity/condition/position, To improve ability of physical actions for home/community/work/leisure Therapeutic Exercise to Include: Strength training, Postural training, Flexibilty training, In an aquatic setting, Passive ROM, Active ROM, Sadiq Exercises For the Purpose of:: To decrease pain, To increase ROM, To improve muscle performance and motor function, To increase tolerance to activity/condition/position, To improve ability of physical actions for home/community/work/leisure This patient was last seen in our office 12/16/21. Pertinent comments regarding their Physical therapy will appear below: Pt seen all 11 visits of POC and was doing well at 80+% better. She continued in the water through the 16 of December adn now will be discontinued per plan. At this point I will be discontinuing this patient from physical therapy. I would be happy to see this patient again in the future if found appropriate by the physician. Thank you! Ron Sanches, DPT, OCS, CSCS Balance/Gait/Functional tests - Balance/Special Test Scores Oswestry Low Back Score: 3
== END 2021-12-16 19:00 | disposition home or self-care (01) ==
LOC: PT 14:30
PROVIDERS: PCP Family Medicine; Referring Provider Family Medicine; Visit Provider Family Medicine
DX: S39.012D Strain of muscle, fascia and tendon of lower back, subsequent encounter (principal); X58.XXXD Exposure to other specified factors, subsequent encounter; M51.36 Other intervertebral disc degeneration, lumbar region
CPT/HCPCS: 97110; 97113; 97161; 97530

== ENCOUNTER → 2021-12-27 | Outpatient (CLI) | payer OTHER, SELFPAY ==
--- NOTE | 2021-12-27 18:15 | STRESSREP ---
Stress Test Report Exercise stress test. 61-year-old lady with a history of flecainide use. Assess for coronary disease. Stress protocol: Resting KG demonstrates normal sinus rhythm with a rate of 67 bpm normal intervals are noted resting blood pressure is 138/88 mmHg. The patient exercised according to regular Everette protocol for a total duration of 9 minutes and 30 seconds. Patient completed 30 seconds into stage IV of the Everette protocol. The maximum heart rate attained was 160 bpm which was 100% of maximum predicted heart rate maximum workload was 11.7 metabolic equivalents. The patient maintained sinus rhythm throughout the recording. At rest there were no ST or T wave changes noted suggest ischemia and at peak exercise upsloping ST changes were noted we did not meet the criteria for ischemia. No clinical angina was noted. No arrhythmias were noted the peak blood pressure was 190/82 mmHg rate-pressure product was 28,100. Conclusion: Exercise stress test with no EKG criteria for ischemia at a high workload. No arrhythmias noted. No chest pain noted.
== END | disposition home or self-care (01) ==
LOC: CVS 12:23
PROVIDERS: PCP Family Medicine; Referring Provider Nurse Practitioner Gerontology; Visit Provider Nurse Practitioner Gerontology
DX: I48.92 Unspecified atrial flutter (principal); Z79.02 Long term (current) use of antithrombotics/antiplatelets
CPT/HCPCS: 93017

== ENCOUNTER 2022-02-15 22:04 | Emergency (ER) | payer OTHER, SELFPAY ==
[2022-02-15 22:05] VITALS: BP 182/93; PULSE 74; RESP 15; TEMP 36.3; O2SAT 100; BMI 22.7
--- NOTE | 2022-02-15 22:29 | EX.ED.DYSGE1 ---
HPI History of Present Illness Chief Complaint: Nosebleed Informant: patient Onset/Context/Timing Onset: Today Context: Sudden Onset Timing: Continuous Quality: Bleeding Location: Right nares Worsened by: Nothing Relieved by: Nothing Narrative Narrative: Patient presents with epistaxis that began tonight approximately 40 minutes prior to arrival. Patient states she was watching TV when her nose started bleeding. Patient states it is mainly out of the right nares. Patient states it began rather suddenly and has been constant. Patient states she pinched her nose and the bleeding is now going down the back of her throat. Patient states nothing makes it better nothing makes it worse. Patient denies any trauma or injury. Patient denies any fevers or chills. Patient is on Xarelto for atrial flutter. [facility] Medical History Alcohol use Arthritis Back pain Back problem CPAP (continuous positive airway pressure) dependence Fatigue Frequent UTI Gallstones Hemorrhoids History of CVA (cerebrovascular accident) (09/30/19) History of IBS Hyperlipidemia Migraine headache Non-smoker Nonsustained ventricular tachycardia Obstructive sleep apnea Palpitations Paroxysmal atrial flutter (01/29/13) Psoriatic arthritis Rectal pressure Sleep apnea TIA (transient ischemic attack) Wears glasses Home Medications calcium carbonate 600 mg-vitamin D3 20 mcg (800 unit) tablet (Caltrate with Vitamin D3) 1 ea PO DAILY Supplement 03/10/15 [History Last Taken Unknown] erythromycin 5 mg/gram (0.5 %) eye ointment 1 applic ophthalmic (eye) DAILY PRN eye irritation 08/14/19 [History Last Taken Unknown] triamcinolone acetonide 0.025 % topical cream 1 applic topical DAILY PRN skin irritation 08/14/19 [History Last Taken Unknown] magnesium oxide 400 mg (241.3 mg magnesium) tablet 400 mg PO DAILY 06/04/20 [History Last Taken Unknown] flecainide 50 mg tablet 50 mg PO BID Heart rate/BP #180 tabs 08/03/21 [Rx Last Taken Unknown] rivaroxaban 20 mg tablet (Xarelto) 20 mg PO DAILY #90 tabs 01/26/22 [Rx Last Taken Unknown] amoxicillin 875 mg-potassium clavulanate 125 mg tablet 875 mg PO Q12H #20 TABLETS 02/16/22 [Rx Last Taken Unknown] Allergy/AdvReac Type Severity Reaction Status Date / Time diltiazem Allergy Intermediate rash Verified 02/15/22 22:09 atenolol [From Tenormin] Allergy Unknown Rash Verified 02/15/22 22:09 ciprofloxacin HCl Allergy Unknown Unknown Verified 02/15/22 22:09 [From Cipro] doxycycline hyclate Allergy Unknown Unknown Verified 02/15/22 22:09 [From Doryx] meloxicam [From Mobic] Allergy Unknown Rash Verified 02/15/22 22:09 Sulfa (Sulfonamide Allergy Unknown Rash Verified 02/15/22 22:09 Antibiotics) tetracycline Allergy Unknown Verified 02/15/22 22:09 metoprolol AdvReac Intermediate Bradycardia Verified 02/15/22 22:09 doxycycline [From Doryx] AdvReac Mild Rash Verified 02/15/22 22:09 bupivacaine AdvReac PT UNSURE Verified 02/15/22 22:09 [From Exparel (PF)] OF REACTION cisatracurium AdvReac PT UNSURE Verified 12/15/21 14:33 OF REACTION succinylcholine AdvReac PT UNSURE Verified 12/15/21 14:33 OF REACTION ELECTRODE PATCHES Allergy Rash Uncoded 12/15/21 14:33 Family History Father CAD (coronary artery disease) [place] and CABG in 60's Hypertension High cholesterol Prostate cancer Mother High cholesterol Hypertension Skin cancer COPD (chronic obstructive pulmonary disease) Surgical History History of appendectomy (11/2011) History of cholecystectomy History of dilatation and curettage History of esophagogastroduodenoscopy (EGD) History of hemorrhoidectomy (08/27/20) History of left heart catheterization (03/11/15) Hx of colonoscopy Social History Smoking Status: Never smoker second hand exposure: No alcohol intake: current alcohol intake frequency: a few times a month substance use type: does not use caffeine: No (rarely) what type of physical activity do you participate in: walking and yoga frequency: daily justo/mandaeism: Mandaen seatbelt use: always ROS ROS ED Constitutional Constitutional ED: Denies chills or fever(s) Eyes Eyes: Denies blurry vision or change in vision ENT ENT ED: Denies ear pain or sore throat Cardiovascular Cardiovascular: Denies chest pain or palpitations Respiratory/Chest Respiratory/Chest: Denies cough or dyspnea Gastrointestinal Gastrointestinal: Denies nausea or vomiting Genitourinary Genitourinary ED: Denies dysuria or hematuria Musculoskeletal Musculoskeletal: Denies back pain or neck pain Integumentary Denies abscess or rash Neurologic Neurologic: Denies headache(s) or weakness Allergic/Immunologic Allergic/Immunologic ED: Denies mouth swelling or urticaria EXAM Physical Exam Const Vital Signs: 02/15/22 22:05 02/16/22 00:54 Temperature 97.3 F L Temperature Source Temporal Pulse Rate 74 Respiratory Rate 15 16 Blood Pressure 182/93 H Blood Pressure Mean 122 Pulse Ox 100 100 Oxygen Delivery Method Room Air Room Air Positive well nourished and well developed General Appearance ED: well developed and NAD HEENT Reports moist mucous membranes HEENT Narrative: There is bleeding from the right anterior nasal septum. There is some blood in the oropharynx. There is no septal deviation or septal hematoma. Eyes PERRL and EOMs intact bilaterally Neck supple and no JVD Resp normal respiratory effort and clear to auscultation bilaterally Cardio regular rate and regular rhythm Neuro oriented x3, CN's II-XII intact bilaterally and no sensory deficits noted Sensorium / Orientation: alert Motor Exam: strength 5/5 throughout Psych mental status grossly normal MDM MDM MDM Narrative Medical decision making narrative: CBC was obtained and was within normal limits. Pro time was 26.2 and INR was 2.5. PTT was 58.6. Naima solution was applied to the right nares with cotton balls. The bleeding started to slow down. A 5.5 cm anterior rapid Rhino packing was placed. The bleeding appeared to slow down but the packing fell out and the bleeding recurred. A 7.5 cm anterior/posterior rapid Rhino packing was placed. This was left in place. There is minimal bleeding on reevaluation. Patient is feeling better. Patient was given a dose of Augmentin here and was given a prescription for Augmentin. Patient was instructed to follow-up with her primary care physician in 2 to 3 days for packing removal. Patient was also given referral for ENT for follow-up care. Patient understood and was agreeable with the plan. All questions were answered. Lab Data Attestation: I reviewed the patient's lab results. Labs: Laboratory Results - last 24 hr 02/15/22 02/15/22 22:40 22:40 WBC 4.4 RBC 4.58 Hgb 14.6 Hct 42.3 MCV 92.4 MCH 31.9 MCHC 34.5 RDW Std Deviation 41.2 RDW Coeff of Vanessa 12.1 Plt Count 241 MPV 10.6 Immature Gran % (Auto) 0.000 Neut % (Auto) 41.8 L Lymph % (Auto) 48.2 H [place] % (Auto) 6.6 Eos % (Auto) 2.7 Baso % (Auto) 0.7 Absolute Neuts (auto) 1.9 L Absolute Lymphs (auto) 2.13 Nucleated RBC % 0 PT 26.2 H INR 2.5 APTT 58.6 H Discharge Plan Triage Chief Complaint: Nosebleed ED Provider: Ron Harding Dx/Rx/DC Orders Clinical Impression: Epistaxis, Elevated blood pressure reading Instructions: ED Epistaxis (Adult) Prescriptions: New amoxicillin-pot clavulanate [amoxicillin-pot clavulanate] 875-125 mg tablet 875 mg PO Q12H Qty: 20 0RF No Action triamcinolone acetonide 0.025 % cream 1 applic TOPICAL DAILY PRN (Reason: skin irritation) erythromycin 5 mg/gram (0.5 %) ointment 1 applic OPHTHALMIC DAILY PRN (Reason: eye irritation) magnesium oxide 400 mg (241.3 mg magnesium) tablet 400 mg PO DAILY Label Comments: TAKE 1 TABLET BY MOUTH TWICE A DAY calcium carbonate-vitamin D3 [Caltrate with Vitamin D3] 1 EACH tablet 1 ea PO DAILY Label Comments: SUPPLEMENT flecainide 50 mg tablet 50 mg PO BID Qty: 180 3RF Xarelto 20 mg tablet 20 mg PO DAILY Qty: 90 3RF Rx Instructions: must administer with evening meal Primary Care Provider: Ron Cunningham Referrals: Saul Sanchez MD [Med Staff - Active Staff] - 2 Days Ron Cunningham MD [Primary Care Provider] - 3-5 Days Disposition Disposition: Home, Self Care Discharge Date/Time: 02/16/22 01:35
[2022-02-15] MEDS: Mixture 30 ML Bottle TOPICAL (22:36)
[2022-02-15 22:56] LABS: International Normalized Ratio 2.5; Prothrombin Time (Protime)PT. 26.2 SECONDS (11.7-14.9)
[2022-02-15 22:57] LABS: Partial Thromboplast Time 58.6 Seconds (24.1-36.2)
[2022-02-15 23:04] LABS: Absolute Lymphocyte Count 2.13 X10^3/uL (0.83-4.51); Absolute Neutrophil Count 1.9 X10^3/uL (2.0-7.7); Basophil# 0.03 X10^3/uL; Basophil% 0.7 % (0-1); Eosinophil# 0.12 X10^3/uL; Eosinophils% 2.7 % (0-5); Hematocrit 42.3 % (37-47); Hemoglobin 14.6 g/dL (12.0-15.0); Lymphocyte # 2.13 X10^3/ul (0.83-4.51); Lymphocyte % 48.2 % (19-41); Mean Corp Hgb Conc 34.5 g/dL (32-36); Mean Corpuscular Hgb 31.9 pg (27.0-32.0); Mean Corpuscular Volume 92.4 fL (81-99); Mean Platelet Vol. 10.6 fl (6.2-12.0); Monocyte# 0.29 X10^3/uL; Monocyte% 6.6 % (0-10); NRBC Flagged by Analyzer 0 % (0-5); Neutrophil # 1.85 X10^3/uL (2.7-7.7); Neutrophil % 41.8 % (47-70); Platelet Count 241 K/mm3 (150-450); RBC Distribution Width CV 12.1 % (11.6-14.6); RBC Distribution Width SD 41.2 fl (35.1-43.9); Red Blood Count 4.58 M/mm3 (4.2-5.4); White Blood Count 4.4 K/mm3 (4.4-11.0)
[2022-02-16 00:54] VITALS: RESP 16; O2SAT 100
[2022-02-16] MEDS: Amox/Clavulanate 875 MG Tablet PO (01:28)
== END 2022-02-16 01:35 | disposition home or self-care (01) ==
PROVIDERS: Emergency Provider Emergency Medicine; PCP Family Medicine; Visit Provider Emergency Medicine
DX: R04.0 Epistaxis (principal); I48.92 Unspecified atrial flutter; R03.0 Elevated blood-pressure reading, without diagnosis of hypertension; Z79.01 Long term (current) use of anticoagulants; Z79.899 Other long term (current) drug therapy; Z86.73 Personal history of transient ischemic attack (TIA), and cerebral infarction without residual deficits
CPT/HCPCS: 30903; 30905; 85025; 85610; 85730; 99284; A4216

== ENCOUNTER 2022-02-24 07:01 | Outpatient (RCR) | payer OTHER, SELFPAY ==
[2022-02-24 10:30] LABS: International Normalized Ratio 1.1; Prothrombin Time (Protime)PT. 13.5 SECONDS (11.7-14.9)
== END 2022-02-24 18:00 | disposition home or self-care (01) ==
LOC: MTLAB 07:01
PROVIDERS: PCP Family Medicine; Referring Provider Internal Medicine Cardiovascular Disease; Visit Provider Internal Medicine Cardiovascular Disease
DX: I48.92 Unspecified atrial flutter (principal); Z79.01 Long term (current) use of anticoagulants
CPT/HCPCS: 36415; 85610

== ENCOUNTER 2022-03-24 06:56 | Outpatient (RCR) | payer OTHER, SELFPAY ==
[2022-03-03 10:50] LABS: International Normalized Ratio 1.5
[2022-03-10 10:26] LABS: International Normalized Ratio 6.2
[2022-03-17 10:38] LABS: International Normalized Ratio 1.4; Prothrombin Time (Protime)PT. 17.2 SECONDS (11.7-14.9)
[2022-03-24 10:06] LABS: Absolute Neutrophil Count 1.8 X10^3/uL (2.0-7.7); Basophil# 0.05 X10^3/uL; Basophil% 1.5 % (0-1); Eosinophil# 0.12 X10^3/uL; Eosinophils% 3.5 % (0-5); Hematocrit 40.8 % (37-47); Hemoglobin 13.2 g/dL (12.0-15.0); Lymphocyte % 34.9 % (19-41); Mean Corp Hgb Conc 32.4 g/dL (32-36); Mean Corpuscular Hgb 30.9 pg (27.0-32.0); Mean Corpuscular Volume 95.6 fL (81-99); Mean Platelet Vol. 11.2 fl (6.2-12.0); Monocyte# 0.28 X10^3/uL; Monocyte% 8.1 % (0-10); NRBC Flagged by Analyzer 0 % (0-5); Neutrophil # 1.79 X10^3/uL (2.7-7.7); Platelet Count 248 K/mm3 (150-450); RBC Distribution Width CV 12.5 % (11.6-14.6); RBC Distribution Width SD 43.8 fl (35.1-43.9); Red Blood Count 4.27 M/mm3 (4.2-5.4); White Blood Count 3.4 K/mm3 (4.4-11.0)
[2022-03-24 10:28] LABS: Anion Gap 8 (5-15); BUN 11 mg/dL (7-18); Calcium,Total 8.9 mg/dL (8.5-10.1); Chloride 105 mmol/L (98-107); Creatinine, Serum 0.92 mg/dL (0.55-1.02); EST Glomerular Filtration Rate 66 mL/min (>60); Est Glom Filt Rate - Afr Amer 80 mL/min (>60); Glucose 69 mg/dL (74-106); Potassium 3.9 mmol/L (3.5-5.1); Sodium Level 141 mmol/L (136-145); Thyroid Stim Hormone (TSH) 1.59 uIU/mL (0.358-3.74)
[2022-03-24 10:36] LABS: International Normalized Ratio 1.4; Prothrombin Time (Protime)PT. 16.8 SECONDS (11.7-14.9)
== END 2022-03-24 08:56 | disposition home or self-care (01) ==
LOC: MTLAB 06:56
PROVIDERS: Nurse Practitioner Gerontology; PCP Family Medicine; Referring Provider Internal Medicine Cardiovascular Disease; Visit Provider Internal Medicine Cardiovascular Disease
DX: I48.92 Unspecified atrial flutter (principal); Z79.01 Long term (current) use of anticoagulants; R53.83 Other fatigue
CPT/HCPCS: 36415; 80048; 84443; 85025; 85610

== ENCOUNTER → 2022-08-08 | Outpatient (CLI) | payer OTHER, SELFPAY ==
[2022-08-08 10:12] LABS: Absolute Lymphocyte Count 1.27 X10^3/uL (0.83-4.51); Absolute Neutrophil Count 1.9 X10^3/uL (2.0-7.7); Basophil# 0.04 X10^3/uL; Basophil% 1.1 % (0-1); Eosinophil# 0.12 X10^3/uL; Eosinophils% 3.3 % (0-5); Hematocrit 42.5 % (37-47); Hemoglobin 13.7 g/dL (12.0-15.0); Lymphocyte # 1.27 X10^3/ul (0.83-4.51); Lymphocyte % 35.2 % (19-41); Mean Corp Hgb Conc 32.2 g/dL (32-36); Mean Corpuscular Hgb 30.6 pg (27.0-32.0); Mean Corpuscular Volume 95.1 fL (81-99); Mean Platelet Vol. 11.4 fl (6.2-12.0); Monocyte# 0.32 X10^3/uL; Monocyte% 8.9 % (0-10); NRBC Flagged by Analyzer 0 % (0-5); Neutrophil # 1.85 X10^3/uL (2.7-7.7); Neutrophil % 51.2 % (47-70); Platelet Count 239 K/mm3 (150-450); RBC Distribution Width CV 12.6 % (11.6-14.6); RBC Distribution Width SD 43.7 fl (35.1-43.9); Red Blood Count 4.47 M/mm3 (4.2-5.4); White Blood Count 3.6 K/mm3 (4.4-11.0)
[2022-08-08 10:24] LABS: PTHIN 45.6 pg/mL (18.4-80.1)
[2022-08-08 10:29] LABS: Vitamin D,25 Hydroxy 47.2 ng/mL
[2022-08-08 10:46] LABS: Microalbumin,Random Urine 15.3 mg/L (NO RANGE EST.)
[2022-08-08 14:26] LABS: AST(SGOT) 19 U/L (15-37); Alanine Aminotransfer ALT/SGPT 18 U/L (13-56); Albumin, Serum 3.7 g/dL (3.2-5.0); Alkaline Phosphatase 86 U/L (45-117); Anion Gap 7 (5-15); BUN 10 mg/dL (7-18); BUN/Creat Ratio 10.5 RATIO (10-20); Calcium,Total 9.3 mg/dL (8.5-10.1); Chloride 107 mmol/L (98-107); Cholesterol 187 mg/dL (200); Creatinine, Serum 0.95 mg/dL (0.55-1.02); EST Glomerular Filtration Rate 63 mL/min (>60); Est Glom Filt Rate - Afr Amer 76 mL/min (>60); Globulin 3.7 g/dL (2.2-4.2); Glucose 89 mg/dL (74-106); High Density Lipoprotein 61 mg/dL; Magnesium 2.5 mg/dL (1.6-2.6); Potassium 3.9 mmol/L (3.5-5.1); Protein, Total 7.4 g/dL (6.4-8.2); Sodium Level 142 mmol/L (136-145); Triglycerides 92 mg/dL; Very Low Density Lipoprotein 18 mg/dL (5-40)
== END | disposition home or self-care (01) ==
LOC: MTLAB 07:04
PROVIDERS: PCP Family Medicine; Referring Provider Family Medicine; Visit Provider Family Medicine
DX: G47.30 Sleep apnea, unspecified (principal); N18.2 Chronic kidney disease, stage 2 (mild); E78.5 Hyperlipidemia, unspecified
CPT/HCPCS: 36415; 80053; 80061; 82043; 82306; 83735; 83970; 85025

== ENCOUNTER → 2022-09-01 | Outpatient (CLI) | payer OTHER, SELFPAY ==
--- NOTE | 2022-09-01 10:09 | BI_ITS ---
MAMMOGRAPHY - BILATERAL SCREENING REASON FOR EXAM: Female, 61 years old. Routine annual screening examination. PERTINENT HISTORY: Non-contributory. TECHNIQUE: Digital bilateral breast jeronimo (3D mammographic acquisition) in the CC and MLO projections. 2-D mediolateral oblique (MLO) and craniocaudad (CC) views of both breasts were obtained. CAD: Full Field Digital Mammography with Computer Added Detection was performed. COMPARISON: Comparison is made with prior study August 31, 2021 and August 14, 2020. FINDINGS: Breast Composition: The breasts are heterogeneously dense, which may obscure small masses. There are no dominant masses or suspicious calcifications. Stable small benign appearing bilateral axillary lymph nodes. No other significant abnormalities are identified. There has been no significant change since the prior study. BI/SCRN MAMM (CAD)W/JERONIMO BILAT IMPRESSION: Stable bilateral screening mammogram. Yearly follow-up mammogram recommended. (A) ASSESSMENT CATEGORY: BIRADS Category 2: Benign. A letter regarding these results will be sent to the patient by the facility within 30 days. Approximately 10% of breast cancers are not detected by mammography. A normal mammogram should not delay biopsy of a clinically suspicious abnormality. [id number] Electronically Signed: Rosas Gutierrez MD at 12:11 EDT ,
== END | disposition home or self-care (01) ==
LOC: OPBI 10:08
PROVIDERS: PCP Family Medicine; Referring Provider Family Medicine; Visit Provider Family Medicine
DX: Z12.31 Encounter for screening mammogram for malignant neoplasm of breast (principal)
CPT/HCPCS: 77063; 77067

== ENCOUNTER → 2023-03-31 | Outpatient (CLI) | payer OTHER, SELFPAY ==
[2023-03-31 15:22] LABS: Absolute Lymphocyte Count 1.34 X10^3/uL (0.83-4.51); Absolute Neutrophil Count 3.3 X10^3/uL (2.0-7.7); Basophil# 0.04 X10^3/uL; Basophil% 0.8 % (0-1); Eosinophil# 0.05 X10^3/uL; Hematocrit 43.7 % (37-47); Hemoglobin 14.2 g/dL (12.0-15.0); Lymphocyte # 1.34 X10^3/ul (0.83-4.51); Lymphocyte % 26.7 % (19-41); Mean Corp Hgb Conc 32.5 g/dL (32-36); Mean Corpuscular Hgb 30.4 pg (27.0-32.0); Mean Corpuscular Volume 93.6 fL (81-99); Mean Platelet Vol. 10.5 fl (6.2-12.0); Monocyte# 0.27 X10^3/uL; Monocyte% 5.4 % (0-10); NRBC Flagged by Analyzer 0 % (0-5); Neutrophil % 65.9 % (47-70); Platelet Count 277 K/mm3 (150-450); RBC Distribution Width CV 12.5 % (11.6-14.6); RBC Distribution Width SD 42.5 fl (35.1-43.9); Red Blood Count 4.67 M/mm3 (4.2-5.4)
[2023-03-31 15:52] LABS: ALB/GLOB Ratio 1.1 RATIO (0.9-2.4); AST(SGOT) 25 U/L (15-37); Alanine Aminotransfer ALT/SGPT 22 U/L (13-56); Albumin, Serum 4.1 g/dL (3.2-5.0); Alkaline Phosphatase 82 U/L (45-117); Anion Gap 3 (5-15); BUN 6 mg/dL (7-18); BUN/Creat Ratio 6.9 RATIO (10-20); Calcium,Total 9.7 mg/dL (8.5-10.1); Chloride 105 mmol/L (98-107); Creatinine, Serum 0.87 mg/dL (0.55-1.02); EST Glomerular Filtration Rate 70 mL/min (>60); Est Glom Filt Rate - Afr Amer 85 mL/min (>60); Globulin 3.8 g/dL (2.2-4.2); Glucose 92 mg/dL (74-106); Lipase 47 U/L (13-75); Potassium 3.4 mmol/L (3.5-5.1); Protein, Total 7.9 g/dL (6.4-8.2); Sodium Level 137 mmol/L (136-145)
--- OUTSIDE RECORDS SUMMARY | 2023-03-31 16:08 | XMS RPT_ITS | CCD ---
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 Name Role Phone MABEL Andino, Brittany Wade Unavailable UnavailCandie Valdez Unavailable Unavailable STAN HUANG Unavailable Unavailable Candie Bui Unavailable Unavailable Allergies Allergy Classification Reported Allergen(s) Allergy Type Date of Onset Reaction(s) Facility (6 sources) atenolol drug allergy 2 Rash [facility] Work Phone: [phone] (3 sources) ciprofloxacin drug allergy 5 Headaches, anxiety [facility] Work Phone: [phone] (3 sources) meloxicam; Translations: [MOBIC] allergy to substance 2 [facility] Work Phone: [phone] (3 sources) Sulfonamides (Antibiotic) drug allergy 2 [facility] Work Phone: [phone] (3 sources) DILTIAZEM/CARDIZE M drug allergy 3 Severe rash, headache [facility] Work Phone: [phone] (3 sources) DORYX/TETRACYCLIN ES drug allergy 3 terrible headache [facility] Work Phone: [phone] Medications Completed/Discontinued Medications Medication Drug Class(es) Dates Sig (Normalized) Sig (Original) AZELAIC ACID GEL (6 sources) End: 02-10-2014 FINACEA GEL twice a day AZELAIC ACID GEL [id number] Duy Garcia MD Problems Active Problems Problem Classification Problem Date Documented Da te Episodic/Chronic Cardiac dysrhythmias (6 sources) Nonsustained ventricular tachycardia ; Translations: [Atrial flutter] Onset: 02-14-2013 03-03-2015 Chronic Joint disorders and dislocations; trauma-related (3 sources) Traumatic arthropathy, unspecified hip; Translations: [Traumatic arthropathy, unspecified hip] 09-24-2012 Chronic Unclassified (1 source) Long-term drug therapy; Translations: [Other longterm (current) drug therapy] Onset: 03-24-2016 03-24-2016 Past or Other Problems Problem Classification Problem Date Documented Da te Episodic/Chronic Appendicitis and other appendiceal conditions (6 sources) Disorder of appendix; Translations: [Disease of appendix, unspecified] Resolved: 12-16-2011 12-14-2011 Episodic Cardiac dysrhythmias (3 sources) Palpitations; Translations: [Palpitations] Onset: 11-12-2012 11-12-2012 Episodic Conditions associated with dizziness or vertigo (3 sources) Dizziness; Translations: [Dizziness and giddiness] Onset: 11-12-2012 11-12-2012 Episodic Nonspecific chest pain (6 sources) Chest pain, unspecified; Translations: [Chest pain, unspecified] Onset: 11-12-2012 Resolved: 02-04-2015 02-04-2015 Episodic Other aftercare (2 sources) Other longterm (current) drug therapy; Translations: [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 (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) drug therapy] Onset: 03-24-2016 03-24-2016 Episodic Other connective tissue disease (3 sources) Trochanteric bursitis; Translations: [Trochanteric bursitis, right hip] 09-24-2012 Episodic [place]-; endo-; and myocarditis; cardiomyopathy (except that caused by tuberculosis or sexually transmitted disease) (3 sources) Disease of pericardium, unspecified; Translations: [Disease of pericardium, unspecified] Onset: 11-21-2012 11-21-2012 Episodic Residual codes; unclassified (3 sources) Family history of ischemic heart disease and other diseases of the circulatory system; Translations: [Family history of ischemic heart disease and other diseases of the circulatory system] Onset: 03-03-2015 03-03-2015 Episodic Results Test Name Value Interpretation Reference Range Facil ity Vital Signs Date Time Vital Sign Value Performing Clinician Dylan anderson 10-10-2016 13:30-0400 BMI (Body Mass Index) 24.02 kg/m2 [facility] Work Phone: 10-10-2016 13:30-0400 BP Diastolic 70 mm[Hg] [facility] Work Phone: 10-10-2016 13:30-0400 BP Systolic 124 mm[Hg] [facility] Work Phone: 10-10-2016 13:30-0400 Height 172.72 cm [facility] Work Phone: 10-10-2016 13:30-0400 Pulse (Heart Rate) 44 /min [facility] Work Phone: 10-10-2016 13:30-0400 Respiratory Rate 18 /min [facility] Work Phone: 10-10-2016 13:30-0400 Weight 71.67 kg [facility] Work Phone: 03-24-2016 15:07-0500 Heart rate 48 /min [facility] Work Phone: 03-24-2016 11:45-0500 BSA (Body Surface Area) 1.86 m2 [facility] Work Phone: 09-21-2015 09:52-0400 Pulse Oximetry 98 % [facility] Work Phone: 01-31-2013 14:58-0500 Heart rate 426 ms [facility] Work Phone: 12-27-2011 09:50-0400 Body Temperature 97.6 [degF] [facility] Work Phone: Encounters Encounter Date Encounter Type Care Provider Facility Start: 12-07-2016 End: 12-08-2016 [facility] Facility:[id number] Procedures Date Procedure Procedure Detail Performing Clinician Start: 10-10-2016 End: 10-10-2016 ALISA Garcia MD Work Phone: Start: 10-10-2016 End: 10-10-2016 Follow Up Appt 6 months Duy Garcia MD Work Phone: Start: 10-10-2016 End: 11-01-2016 Stress Echocardiogram (treadmill) Duy Garcia MD Work Phone: Start: 03-24-2016 End: 03-24-2016 DJN Hermilo Sam Augustin FIRMWARE TEST ENGINEER-C Start: 03-24-2016 End: 03-24-2016 Electrocardiogram, complete Hermilo Sam Augustin FIRMWARE TEST ENGINEER-C Start: 03-24-2016 End: 03-24-2016 Follow Up Appt 6 months Hermilo Cecy Augustin FIRMWARE TEST ENGINEER -C Start: 09-21-2015 End: 09-21-2015 SUSANN Duy Garcia MD Work Phone: Start: 09-21-2015 End: 09-21-2015 Electrocardiogram, complete Duy keller MD Work Phone: Start: 09-21-2015 End: 09-21-2015 Follow Up Appt 6 months Duy Garcia MD Work Phone: Start: 04-09-2015 End: 04-10-2015 Follow Up BP Check Duy Garcia MD Work Phone: Start: 03-17-2015 End: 03-26-2015 Electrocardiogram, complete Duy keller MD Work Phone: Start: 03-04-2015 End: 03-04-2015 Nurse, Teaching, Wound Check (no charge) Duy Garcia MD Work Phone: Start: 03-03-2015 End: 03-04-2015 *BMP Duy Garcia MD Work Phone: Start: 03-03-2015 End: 03-04-2015 aPTT Duy Garcia MD Work Phone: Start: 03-03-2015 End: 03-04-2015 CBC W Auto Differential panel - Blood Duy Garcia MD Work Phone: Start: 03-03-2015 End: 03-26-2015 Chest x-ray Duy Garcia MD Work Phone: Start: 03-03-2015 End: 03-04-2015 Coagulation factor induced.INR assay in platelet poor plasma Duy Garcia MD Work Phone: Start: 03-03-2015 End: 03-26-2015 Electrocardiogram, complete Duy keller MD Work Phone: Start: 03-03-2015 End: 03-26-2015 Left Heart Cath Duy Garcia MD Work Phone: Start: 02-10-2015 End: 02-10-2015 SUSANN Duy Garcia MD Work Phone: Start: 02-10-2015 End: 02-10-2015 Follow Up Appt 1 year Sheri Padilla Work Phone: Start: 02-10-2015 End: 02-18-2015 Nuclear stress test -Lexiscan Duy mclaughlin MD Work Phone: Start: 02-10-2015 End: 03-03-2015 Remote 30 day ecg rev/report Duy santos MD Work Phone: Start: 02-10-2014 End: 02-10-2014 ALISA Garcia MD Work Phone: Start: 02-10-2014 End: 02-10-2014 Follow Up Appt 1 year Sheri Padilla Work Phone: Start: 04-24-2013 End: 04-24-2013 Follow Up Appt Other Digna hodges PA-C Work Phone: Start: 02-14-2013 End: 04-24-2013 Follow Up BP Check Duy Garcia MD Work Phone: Start: 01-31-2013 End: 01-31-2013 Electrocardiogram, complete Duy keller MD Work Phone: Start: 01-31-2013 End: 01-31-2013 Follow Up Appt 1 year Sheri Padilla Work Phone: Start: 01-31-2013 End: 04-02-2013 Remote 30 day ecg rev/report Duy santos MD Work Phone: Start: 12-24-2012 End: 12-28-2012 Echocardiography Duy Garcia MD Work Phone: Start: 11-12-2012 End: 01-31-2013 DJN Duy Garcia MD Work Phone: Start: 11-12-2012 End: 01-31-2013 Echocardiography Duy Garcia MD Work Phone: Start: 11-12-2012 End: 11-22-2012 Stress Echocardiogram (treadmill) Duy Garcia MD Work Phone: Start: 12-16-2011 Laparoscopy, appendectomy Ivis Wade Miguel Work Phone: Plan of Treatment Date Care Activity Detail Author Start: 04-24-2017 End: 04-24-2017 Appointment Appointment [facility] Work Phone: Start: 10-10-2016 End: 10-10-2016 Appointment Appointment [facility] Work Phone: Start: 10-10-2016 End: 10-10-2016 ALISA CUELLAR [facility] Work Phone: Start: 10-10-2016 End: 10-10-2016 Follow Up Appt 6 months Follow Up Appt 6 months [facility] Work Phone: Start: 10-10-2016 End: 10-10-2016 Stress Echocardiogram (treadmill) Stress Echocardiogram (treadmill) [facility] Work Phone: Start: 03-24-2016 End: 03-24-2016 ALISA DAVISN [facility] Work Phone: Start: 03-24-2016 End: 03-24-2016 Electrocardiogram, complete EKG (In office) [facility] Work Phone: Start: 03-24-2016 End: 03-24-2016 Follow Up Appt 6 months Follow Up Appt 6 months [facility] Work Phone: Start: 09-21-2015 End: 09-21-2015 ALISA CUELLAR [facility] Work Phone: Start: 09-21-2015 End: 09-21-2015 Electrocardiogram, complete EKG (In office) [facility] Work Phone: Start: 09-21-2015 End: 09-21-2015 Follow Up Appt 6 months Follow Up Appt 6 months [facility] Work Phone: Start: 04-09-2015 End: 04-10-2015 Follow Up BP Check Follow Up BP Check [facility] Work Phone: Start: 03-17-2015 End: 03-26-2015 Electrocardiogram, complete EKG (In office) [facility] Work Phone: Start: 03-03-2015 End: 03-04-2015 *BMP *BMP [facility] Work Phone: Start: 03-03-2015 End: 03-04-2015 aPTT *PTT-Partial Thromboplastin Time [facility] Work Phone: Start: 03-03-2015 End: 03-04-2015 aPTT Coag time (PPP) *PTT-Partial Thromboplastin Time [facility] Work Phone: Start: 03-03-2015 End: 03-04-2015 CBC W Auto Differential panel - Blood *CBC without Diff [facility] Work Phone: Start: 03-03-2015 End: 03-26-2015 Chest x-ray X-Ray, Chest, PA & Lateral [facility] Work Phone: Start: 03-03-2015 End: 03-04-2015 Coagulation factor induced.INR assay in platelet poor plasma *PT/INR [facility] Work Phone: Start: 03-03-2015 End: 03-26-2015 Electrocardiogram, complete EKG (In office) [facility] Work Phone: Start: 03-03-2015 End: 03-26-2015 Left Heart Cath Left Heart Cath [facility] Work Phone: Start: 02-10-2015 End: 02-10-2015 ALISA CUELLAR [facility] Work Phone: Start: 02-10-2015 End: 02-10-2015 Follow Up Appt 1 year Follow Up Appt 1 year [facility] Work Phone: Start: 02-10-2015 End: 02-10-2015 Nuclear stress test -Lexiscan Nuclear stress test -Lexiscan [facility] Work Phone: Start: 02-10-2015 End: 02-10-2015 Remote 30 day ecg rev/report 30 Day Holter Monitor [facility] Work Phone: Start: 02-10-2014 End: 02-10-2014 ALISA CUELLAR [facility] Work Phone: Start: 02-10-2014 End: 02-10-2014 Follow Up Appt 1 year Follow Up Appt 1 year [facility] Work Phone: Start: 04-24-2013 End: 04-24-2013 Follow Up Appt Other Follow Up Appt Other [facility] Work Phone: Start: 02-14-2013 End: 04-24-2013 Follow Up BP Check Follow Up BP Check [facility] Work Phone: Start: 01-31-2013 End: 01-31-2013 Electrocardiogram, complete EKG (In office) [facility] Work Phone: Start: 01-31-2013 End: 01-31-2013 Follow Up Appt 1 year Follow Up Appt 1 year [facility] Work Phone: Start: 01-31-2013 End: 01-31-2013 Remote 30 day ecg rev/report 30 Day Holter Monitor [facility] Work Phone: Start: 12-24-2012 End: 11-21-2012 Echocardiography Echocardiogram (limited) [facility] Work Phone: Start: 11-12-2012 End: 01-31-2013 SUSANMendoza ALISA [facility] Work Phone: Start: 11-12-2012 End: 11-12-2012 Echocardiography Echocardiogram (complete) [facility] Work Phone: Start: 11-12-2012 End: 01-31-2013 Follow Up Appt 1 year Follow Up Appt 1 year [facility] Phone: Start: 11-12-2012 End: 11-12-2012 Stress Echocardiogram (treadmill) Stress Echocardiogram (treadmill) [facility] Phone: Summary Purpose Family History No Family History Records Found Advance Directives No Advanced Directives Records Found Additional Source Comments INFORMATION SOURCE (unrecogn ized section and content) FOR RECORDS PERTAINING TO PATIENTS WHO ARE OR HAVE BEEN ENROLLED IN A CHEMICAL DEPENDENCY/SUBSTANCEABUSE PROGRAM, SOME INFORMATION MAY BE OMITTED. This clinical summary was aggregated from multiple sources. Caution should be exercised in using it in the provision of clinical care. This summary normalizes information from multiple sources, and as a consequence, information in this document may materially change the coding, format and clinical context of patient data. In addition, data may be omitted in some cases. CLINICAL DECISIONS SHOULD BE BASED ON THE PRIMARY CLINICAL RECORDS. [facility]. provides no warranty or guarantee of the accuracy or completeness of information in this document.
== END | disposition home or self-care (01) ==
LOC: MTLAB 12:47
PROVIDERS: PCP Family Medicine; Referring Provider Family Medicine; Visit Provider Family Medicine
DX: R10.13 Epigastric pain (principal)
CPT/HCPCS: 36415; 80053; 83690; 85025

== ENCOUNTER → 2023-04-14 | Outpatient (CLI) | payer OTHER, SELFPAY ==
--- OUTSIDE RECORDS SUMMARY | 2023-04-14 07:08 | XMS RPT_ITS | CCD ---
Author Name Unknown Address [address] [place] [address] Organization [facility] Care Team Providers Care Panel Monitor Name Role Phone MABEL Andino, Brittany Wade Unavailable UnavailCandie Valdez Unavailable Unavailable STAN HUANG Unavailable Unavailable Candie Bui Unavailable Unavailable Allergies Allergy Classification Reported Allergen(s) Allergy Type Date of Onset Reaction(s) Facility (6 sources) atenolol drug allergy 2 Rash [facility] Work Phone: [phone] (3 sources) ciprofloxacin drug allergy 5 Headaches, anxiety [facility] Work Phone: [phone] (3 sources) meloxicam; Translations: [MOBIC] allergy to substance 2 [facility] Work Phone: [phone] (3 sources) Sulfonamides (Antibiotic) drug allergy 2 [facility] Work Phone: [phone] (3 sources) DILTIAZEM/CARDIZE M drug allergy 3 Severe rash, headache [facility] Work Phone: [phone] (3 sources) DORYX/TETRACYCLIN ES drug allergy 3 terrible headache [facility] Work Phone: [phone] Medications Completed/Discontinued Medications Medication Drug Class(es) Dates Sig (Normalized) Sig (Original) AZELAIC ACID GEL (6 sources) End: 02-10-2014 FINACEA GEL twice a day AZELAIC ACID GEL [id number] Duy Garcia MD Problems Active Problems Problem Classification Problem Date Documented Da te Episodic/Chronic Cardiac dysrhythmias (6 sources) Nonsustained ventricular tachycardia ; Translations: [Atrial flutter] Onset: 02-14-2013 03-03-2015 Chronic Joint disorders and dislocations; trauma-related (3 sources) Traumatic arthropathy, unspecified hip; Translations: [Traumatic arthropathy, unspecified hip] 09-24-2012 Chronic Unclassified (1 source) Long-term drug therapy; Translations: [Other jail (current) drug therapy] Onset: 03-24-2016 03-24-2016 Past [...] 02-04-2015 Episodic Other aftercare (2 sources) 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; Translations: [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] Onset: 03-24-2016 03-24-2016 Episodic [...] Care Provider Facility Start: 12-07-2016 End: 12-08-2016 [facility] Facility:[id number] Procedures Date Procedure Procedure Detail Performing Clinician Start: 10-10-2016 End: 10-10-2016 ALISA Garcia MD Work Phone: Start: 10-10-2016 End: 10-10-2016 Follow Up Appt 6 months Duy Garcia MD Work Phone: Start: 10-10-2016 End: 11-01-2016 Stress Echocardiogram (treadmill) Duy Garcia MD Work Phone: Start: 03-24-2016 End: 03-24-2016 DJN 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 Start: 03-24-2016 End: 03-24-2016 Electrocardiogram, complete 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 Start: 03-24-2016 End: 03-24-2016 Follow Up Appt 6 months Hermilo Cecy Augustin [employer]IL[employer] STRAIGHTENER -C Start: 09-21-2015 End: 09-21-2015 SUSANN Duy Garcia MD Work Phone: Start: 09-21-2015 End: 09-21-2015 Electrocardiogram, complete Duy keller MD Work Phone: Start: 09-21-2015 End: 09-21-2015 Follow Up Appt 6 months Duy Gacria MD Work Phone: Start: 04-09-2015 End: 04-10-2015 [...] Work Phone: Start: 11-12-2012 End: 01-31-2013 DJN Dyu Garcia MD Work Phone: Start: 11-12-2012 End: 01-31-2013 Echocardiography Duy Garcia MD Work Phone: Start: 11-12-2012 End: 11-22-2012 Stress Echocardiogram (treadmill) Duy Garcia MD Work Phone: Start: 12-16-2011 Laparoscopy, appendectomy Ivis Wade Miguel Work Phone: Plan of Treatment Date Care Activity Detail Author Start: 04-24-2017 End: 04-24-2017 Appointment Appointment [facility] Work Phone: Start: 10-10-2016 End: 10-10-2016 Appointment Appointment [facility] Work Phone: Start: 10-10-2016 End: 10-10-2016 ALISA CUELLAR [facility] Work Phone: Start: 10-10-2016 End: 10-10-2016 Follow Up Appt 6 months Follow Up Appt 6 months [facility] Work Phone: Start: 10-10-2016 End: 10-10-2016 Stress Echocardiogram (treadmill) Stress Echocardiogram (treadmill) [facility] Work Phone: Start: 03-24-2016 End: 03-24-2016 ALISA DAVISN [facility] Work Phone: Start: 03-24-2016 End: 03-24-2016 Electrocardiogram, complete EKG (In office) [facility] Work Phone: Start: 03-24-2016 End: 03-24-2016 Follow Up Appt 6 months Follow Up Appt 6 months [facility] Work Phone: Start: 09-21-2015 End: 09-21-2015 ALISA [facility] Work Phone: Start: 09-21-2015 End: 09-21-2015 Electrocardiogram, complete EKG (In office) [facility] Work Phone: Start: 09-21-2015 End: 09-21-2015 Follow Up Appt 6 months Follow Up Appt 6 months [facility] Work Phone: Start: 04-09-2015 End: 04-10-2015 Follow Up BP Check Follow Up BP Check [facility] Work Phone: Start: 03-17-2015 End: 03-26-2015 Electrocardiogram, complete EKG (In office) [facility] Work Phone: Start: 03-03-2015 End: 03-04-2015 *BMP *BMP [facility] Work Phone: Start: 03-03-2015 End: 03-04-2015 aPTT *PTT-Partial Thromboplastin Time [facility] Work Phone: Start: 03-03-2015 End: 03-04-2015 aPTT Coag time (PPP) *PTT-Partial Thromboplastin Time [facility] Work Phone: Start: 03-03-2015 End: 03-04-2015 CBC W Auto Differential panel - Blood *CBC without Diff [facility] Work Phone: Start: 03-03-2015 End: 03-26-2015 Chest x-ray X-Ray, Chest, PA & Lateral [facility] Work Phone: Start: 03-03-2015 End: 03-04-2015 Coagulation factor induced.INR assay in platelet poor plasma *PT/INR [facility] Work Phone: Start: 03-03-2015 End: 03-26-2015 Electrocardiogram, complete EKG (In office) [facility] Work Phone: Start: 03-03-2015 End: 03-26-2015 Left Heart Cath Left Heart Cath [facility] Work Phone: Start: 02-10-2015 End: 02-10-2015 ALISA CUELLAR [facility] Work Phone: Start: 02-10-2015 End: 02-10-2015 Follow Up Appt 1 year Follow Up Appt 1 year [facility] Work Phone: Start: 02-10-2015 End: 02-10-2015 Nuclear stress test -Lexiscan Nuclear stress test -Lexiscan [facility] Work Phone: Start: 02-10-2015 End: 02-10-2015 Remote 30 day ecg rev/report 30 Day Holter Monitor [facility] Work Phone: Start: 02-10-2014 End: 02-10-2014 ALISA CUELLAR [facility] Work Phone: Start: 02-10-2014 End: 02-10-2014 Follow Up Appt 1 year Follow Up Appt 1 year [facility] Work Phone: Start: 04-24-2013 End: 04-24-2013 Follow Up Appt Other Follow Up Appt Other [facility] Work Phone: Start: 02-14-2013 End: 04-24-2013 Follow Up BP Check Follow Up BP Check [facility] Work Phone: Start: 01-31-2013 End: 01-31-2013 Electrocardiogram, complete EKG (In office) [facility] Work Phone: Start: 01-31-2013 End: 01-31-2013 Follow Up Appt 1 year Follow Up Appt 1 year [facility] Work Phone: Start: 01-31-2013 End: 01-31-2013 Remote 30 day ecg rev/report 30 Day Holter Monitor [facility] Work Phone: Start: 12-24-2012 End: 11-21-2012 Echocardiography Echocardiogram (limited) [facility] Work Phone: Start: 11-12-2012 End: 01-31-2013 ALISA ALISA [facility] Work Phone: Start: 11-12-2012 End: 11-12-2012 Echocardiography Echocardiogram (complete) [facility] Work Phone: Start: 11-12-2012 End: 01-31-2013 Follow Up Appt 1 year Follow Up Appt 1 year [facility] Phone: Start: 11-12-2012 End: 11-12-2012 Stress Echocardiogram (treadmill) Stress Echocardiogram (treadmill) [facility] Phone: Summary Purpose Family History No Family [...] BE BASED ON THE PRIMARY CLINICAL RECORDS. [employer] [facility]. provides no warranty or guarantee of the accuracy or completeness of information in this document.
[2023-04-14 10:59] LABS: Anion Gap 6 (5-15); BUN 7 mg/dL (7-18); BUN/Creat Ratio 7.6 RATIO (10-20); Chloride 110 mmol/L (98-107); Creatinine, Serum 0.92 mg/dL (0.55-1.02); EST Glomerular Filtration Rate 65 mL/min (>60); Est Glom Filt Rate - Afr Amer 79 mL/min (>60); Glucose 105 mg/dL (74-106); Magnesium 2.4 mg/dL (1.6-2.6); Potassium 3.6 mmol/L (3.5-5.1); Sodium Level 142 mmol/L (136-145)
== END | disposition home or self-care (01) ==
LOC: MTLAB 07:03
PROVIDERS: PCP Family Medicine; Referring Provider Family Medicine; Visit Provider Family Medicine
DX: N18.2 Chronic kidney disease, stage 2 (mild) (principal)
CPT/HCPCS: 36415; 80048; 83735

== ENCOUNTER → 2023-08-10 | Outpatient (CLI) | payer OTHER, SELFPAY ==
[2023-08-10 10:02] LABS: Absolute Lymphocyte Count 1.16 X10^3/uL (0.83-4.51); Absolute Neutrophil Count 1.8 X10^3/uL (2.0-7.7); Basophil# 0.04 X10^3/uL; Basophil% 1.2 % (0-1); Eosinophil# 0.07 X10^3/uL; Eosinophils% 2.1 % (0-5); Hemoglobin 12.7 g/dL (12.0-15.0); Lymphocyte # 1.16 X10^3/ul (0.83-4.51); Lymphocyte % 34.2 % (19-41); Mean Corp Hgb Conc 31.8 g/dL (32-36); Mean Corpuscular Hgb 30.7 pg (27.0-32.0); Mean Corpuscular Volume 96.6 fL (81-99); Monocyte# 0.33 X10^3/uL; Monocyte% 9.7 % (0-10); NRBC Flagged by Analyzer 0 % (0-5); Neutrophil # 1.78 X10^3/uL (2.7-7.7); Neutrophil % 52.5 % (47-70); Platelet Count 229 K/mm3 (150-450); RBC Distribution Width SD 46.4 fl (35.1-43.9); Red Blood Count 4.14 M/mm3 (4.2-5.4); White Blood Count 3.4 K/mm3 (4.4-11.0)
[2023-08-10 15:12] LABS: ALB/GLOB Ratio 1.1 RATIO (0.9-2.4); AST(SGOT) 18 U/L (15-37); Alanine Aminotransfer ALT/SGPT 15 U/L (13-56); Albumin, Serum 3.8 g/dL (3.2-5.0); Alkaline Phosphatase 73 U/L (45-117); Anion Gap 2 (5-15); BUN 7 mg/dL (7-18); BUN/Creat Ratio 9.3 RATIO (10-20); Calcium,Total 9.3 mg/dL (8.5-10.1); Chloride 110 mmol/L (98-107); Cholesterol 171 mg/dL (200); Creatinine, Serum 0.76 mg/dL (0.55-1.02); EST Glomerular Filtration Rate 82 mL/min (>60); Est Glom Filt Rate - Afr Amer 100 mL/min (>60); Globulin 3.4 g/dL (2.2-4.2); Glucose 79 mg/dL (74-106); High Density Lipoprotein 65 mg/dL; Magnesium 2.5 mg/dL (1.6-2.6); Potassium 4.8 mmol/L (3.5-5.1); Protein, Total 7.2 g/dL (6.4-8.2); Sodium Level 140 mmol/L (136-145); Triglycerides 56 mg/dL; Very Low Density Lipoprotein 11 mg/dL (5-40)
== END | disposition home or self-care (01) ==
LOC: MTLAB 07:14
PROVIDERS: PCP Family Medicine; Referring Provider Family Medicine; Visit Provider Family Medicine
DX: I48.92 Unspecified atrial flutter (principal); E78.5 Hyperlipidemia, unspecified
CPT/HCPCS: 36415; 80053; 80061; 83735; 85025

== ENCOUNTER → 2023-08-16 | Outpatient (CLI) | payer OTHER, SELFPAY ==
--- NOTE | 2023-08-16 10:13 | BI_ITS ---
MAMMOGRAPHY - BILATERAL SCREENING REASON FOR EXAM: Female, 62 years old. Routine annual screening examination. PERTINENT HISTORY: Non-contributory. TECHNIQUE: Digital bilateral breast jeronimo (3D mammographic acquisition) in the CC and MLO projections. 2-D mediolateral oblique (MLO) and craniocaudad (CC) views of both breasts were obtained. CAD: Full Field Digital Mammography with Computer Added Detection was performed. COMPARISON: Comparison is made with prior study dated September 01, 2022 and August 31, 2021. FINDINGS: Breast Composition: The breasts are heterogeneously dense, which may obscure small masses. There are no dominant masses or suspicious calcifications. No other significant abnormalities are identified. There has been no significant change since the prior study. BI/SCRN MAMM (CAD)W/JERONIMO BILAT IMPRESSION: Stable bilateral screening mammogram. Yearly follow-up mammogram recommended. (A) ASSESSMENT CATEGORY: BIRADS Category 1: Negative. A letter regarding these results will be sent to the patient by the facility within 30 days. Approximately 10% of breast cancers are not detected by mammography. A normal mammogram should not delay biopsy of a clinically suspicious abnormality. [id number] Electronically Signed: Rosas Gutierrez MD at 10:49 EDT ,
== END | disposition home or self-care (01) ==
LOC: OPBI 10:09
PROVIDERS: PCP Family Medicine; Referring Provider Family Medicine; Visit Provider Family Medicine
DX: Z12.31 Encounter for screening mammogram for malignant neoplasm of breast (principal)
CPT/HCPCS: 77063; 77067

== ENCOUNTER → 2023-08-29 | Outpatient (CLI) | payer OTHER, SELFPAY ==
--- NOTE | 2023-08-29 11:38 | RAD_ITS ---
STUDY: X-RAY CHEST REASON FOR EXAM: Female, 62 years old. Dyspnea. TECHNIQUE: Frontal and lateral views of the chest. COMPARISON: March 04, 2015 FINDINGS: The lungs are clear and expanded. There is no demonstrated pleural abnormality. Normal size heart. Normal mediastinum and shellie. Normal visualized pulmonary arteries. Normal visualized aortic arch and descending thoracic aorta. Normal visualized thoracic spine. Normal visualized ribs, clavicles, and shoulders. No abnormality of the visualized soft tissue structures of the upper abdomen. RAD/Chest PA and Lateral IMPRESSION: Stable chest with no acute or active cardiopulmonary disease. Electronically Signed: Abraham Kimbrough MD at 13:29 EDT ,
== END | disposition home or self-care (01) ==
PROVIDERS: PCP Family Medicine; Referring Provider Internal Medicine Cardiovascular Disease; Visit Provider Internal Medicine Cardiovascular Disease
DX: J20.9 Acute bronchitis, unspecified (principal)
CPT/HCPCS: 71046

== ENCOUNTER 2023-09-22 14:34 | Outpatient (CLI) | payer OTHER, SELFPAY ==
--- NOTE | 2023-09-22 14:42 | ECHOD_ITS ---
Reason For Study: AFIB Procedure This was a 2D Doppler, Color Flow transthoracic echocardiogram. Exam performed in department. Left Ventricle Normal LV size. Left ventricular systolic function is normal. The left ventricular ejection fraction is 65 %. No regional wall motion abnormalities noted. Right Ventricle Normal RV size. Normal systolic function. Atria Normal left atrium. Normal right atrium. Mitral Valve Normal mitral valve. Tricuspid Valve Normal tricuspid valve. Aortic Valve Trisinus/trileaflet aortic valve. Pulmonic Valve Normal pulmonic valve. Great Vessels Normal aortic root. The pulmonary artery is normal size. Inferior vena cava collapse with respiration. Pericardium/Pleural No pericardial effusion. MMode/2D Measurements & Calculations LVIDd: 4.2 cm IVSd: 1.0 cm Ao root diam: 3.2 cm LVIDs: 2.5 cm LVPWd: 0.83 cm RVDd: 3.5 cm FS: 40.0 % LAV(MOD-sp4): 29.7 ml LVAd ap4: 27.9 cm2 SV(MOD-sp4): 57.0 ml LVLd ap4: 7.4 cm EDV(MOD-sp4): 86.8 ml EDV(sp4-el): 88.6 ml LVAs ap4: 15.1 cm2 LVLs ap4: 6.4 cm ESV(MOD-sp4): 29.8 ml ESV(sp4-el): 29.9 ml EF(MOD-sp4): 65.7 % EF(sp4-el): 66.2 % SV(sp4-el): 58.7 ml LA A4 area: 14.6 cm2 LA dimension(2D): 2.5 cm RA A4 area: 14.1 cm2 Time Measurements MV dec time: 0.28 sec Doppler Measurements & Calculations MV E max dae: 64.1 cm/sec Lat Peak E' Ade: 13.5 cm/sec Med Peak E' Dae: 7.9 cm/sec MV A max dae: 47.9 cm/sec E/E' lat: 4.7 E/E' med: 8.1 MV E/A: 1.3 MV V2 max: 70.1 cm/sec Ao V2 max: 121.7 cm/sec MV max P.0 mmHg MV dec slope: 232.1 cm/sec2 Ao max P.9 mmHg MV V2 mean: 42.8 cm/sec Ao V2 mean: 84.2 cm/sec MV mean P.84 mmHg Ao mean P.2 mmHg MV V2 VTI: 31.8 cm Ao V2 VTI: 30.6 cm AV (velocity ratio): 0.83 LV V1 max: 98.7 cm/sec PA V2 max: 78.4 cm/sec PI end-d dae: 112.1 cm/sec LV V1 max P.9 mmHg PA V2 mean: 57.7 cm/sec LV V1 mean P.3 mmHg LV V1 mean: 70.3 cm/sec LV V1 VTI: 25.3 cm ECHO/Echo Complete Interpretation Summary Normal LV size. Left ventricular systolic function is normal. The left ventricular ejection fraction is 65 %. Structurally normal valves. Ordering Physician: Ozzie Shelby Referring Physician: Ozzie Shelby Performed By: Gia Turcios RCS
== END 2023-09-22 23:59 | disposition home or self-care (01) ==
LOC: CVS 14:40
PROVIDERS: PCP Family Medicine; Referring Provider Internal Medicine Cardiovascular Disease; Visit Provider Internal Medicine Cardiovascular Disease
DX: I48.92 Unspecified atrial flutter (principal)
CPT/HCPCS: 93306

== ENCOUNTER → 2024-03-28 | Outpatient (CLI) | payer OTHER, SELFPAY | END | disposition home or self-care (01) | LOC: LABSPEC 12:10 | PROVIDERS: PCP Family Medicine; Referring Provider Physician Assistant; Visit Provider Physician Assistant | DX: R82.90 Unspecified abnormal findings in urine (principal) | CPT/HCPCS: 87086; 87088 ==

== ENCOUNTER → 2024-04-02 | Outpatient (CLI) | payer OTHER, SELFPAY | END | disposition home or self-care (01) | LOC: LABSPEC 12:36 | PROVIDERS: PCP Family Medicine; Referring Provider Family Medicine; Visit Provider Family Medicine | DX: N39.0 Urinary tract infection, site not specified (principal) | CPT/HCPCS: 87077; 87086; 87088; 87186 ==

== ENCOUNTER → 2024-04-22 | Outpatient (CLI) | payer OTHER, SELFPAY ==
[2024-04-22 10:42] LABS: Mucous, Urine 0 SEEN /hpf (<or=2+); Squamous Epithelial Cells - UA 0 SEEN /hpf (5-10)
[2024-04-22 12:55] LABS: Color, Urine Straw (Yellow); Glucose, Dipstick Normal (Normal); Ketone-Dipstick Negative (Negative); Leukocyte Esterase-Dipstick 100 /ul (Negative); Nitrite-Dipstick Negative (Negative); Occult Blood-Urine Negative /ul (Negative); Protein-Dipstick Negative (Negative); Specific Gravity, Urine 1.005 (1.002-1.030); Urine Bilirubin Dipstick Negative (Negative); Urine Clarity Clear (Clear); Urine Urobilinogen Normal (Normal)
[2024-04-22 13:13] LABS: Bacteria RARE /hpf (None Seen); Red Blood Cells-Urine 0 SEEN /hpf (0-5); White Blood Cells 0-5 SEEN /hpf (0-5)
== END | disposition home or self-care (01) ==
LOC: LABSPEC 10:41
PROVIDERS: PCP Family Medicine; Referring Provider Family Medicine; Visit Provider Family Medicine
DX: N39.0 Urinary tract infection, site not specified (principal)
CPT/HCPCS: 81001; 87086; 87088

== ENCOUNTER → 2024-05-20 | Outpatient (CLI) | payer OTHER, SELFPAY ==
--- NOTE | 2024-05-20 17:17 | STRESSREP ---
Stress Test Report Exercise myocardial perfusion stress test. 73-year-old lady with a history of coronary artery disease Stress protocol: Resting EKG demonstrates sinus bradycardia with a rate of 53 bpm resting blood pressure is 134/90 mmHg. The patient exercised according to the regular Everette protocol for a total duration of 9 minutes attaining a maximum heart rate of 151 bpm which was 96% of maximum predicted heart rate; the maximum workload was 10.1 metabolic equivalents. At rest there were no ST or T wave changes noted to suggest ischemia and at peak exercise upsloping ST changes only were noted which did not meet the criteria for ischemia. No clinical angina was noted the test was terminated due to the target heart rate being achieved/fatigue. The peak blood pressure was 152/94 mmHg. Rate-pressure product was 24,700 . Myocardial perfusion protocol. 11.2 mCi of technetium 99m sestamibi was injected at rest. The patient exercised according to regular Everette protocol for total duration of 9 minutes and at peak exercise 33.5 mCi of technetium 99m sestamibi was injected stress images were obtained stress and rest images were reconstructed in comparing the short axis vertical long and horizontal long axis. Gated images were also obtained. Perfusion SPECT analysis: Review of the stress images demonstrate normal uptake of tracer noted in all areas of the myocardium. The resting images similarly demonstrate normal uptake of tracer noted in all areas of the myocardium. No areas of reversibility are noted to suggest ischemia no previous infarct was noted. Gated SPECT analysis: The gated ejection fraction is 73%. Conclusion: Normal exercise myocardial perfusion stress test at a high workload Preserved ejection fraction.
== END | disposition home or self-care (01) ==
PROVIDERS: PCP Family Medicine; Referring Provider Physician Assistant Medical; Visit Provider Physician Assistant Medical
DX: R07.9 Chest pain, unspecified (principal); I48.92 Unspecified atrial flutter; E78.5 Hyperlipidemia, unspecified
CPT/HCPCS: 78452; 93017; A9500; A4216

== ENCOUNTER → 2024-08-16 | Outpatient (CLI) | payer OTHER, SELFPAY ==
[2024-08-16 10:03] LABS: Absolute Lymphocyte Count 1.47 X10^3/uL (0.83-4.51); Absolute Neutrophil Count 2.3 X10^3/uL (2.0-7.7); Basophil# 0.05 X10^3/uL; Basophil% 1.2 % (0-1); Eosinophil# 0.12 X10^3/uL; Eosinophils% 2.8 % (0-5); Hematocrit 41.4 % (37-47); Hemoglobin 13.6 g/dL (12.0-15.0); Lymphocyte # 1.47 X10^3/ul (0.83-4.51); Lymphocyte % 34.2 % (19-41); Mean Corp Hgb Conc 32.9 g/dL (32-36); Mean Corpuscular Hgb 31.1 pg (27.0-32.0); Mean Corpuscular Volume 94.7 fL (81-99); Mean Platelet Vol. 10.6 fl (6.2-12.0); Monocyte# 0.34 X10^3/uL; Monocyte% 7.9 % (0-10); NRBC Flagged by Analyzer 0 % (0-5); Neutrophil # 2.31 X10^3/uL (2.7-7.7); Neutrophil % 53.7 % (47-70); Platelet Count 286 K/mm3 (150-450); RBC Distribution Width CV 12.2 % (11.6-14.6); RBC Distribution Width SD 42.4 fl (35.1-43.9); Red Blood Count 4.37 M/mm3 (4.2-5.4); White Blood Count 4.3 K/mm3 (4.4-11.0)
[2024-08-16 10:11] LABS: International Normalized Ratio 1.1; Prothrombin Time (Protime)PT. 14.1 SECONDS (11.7-14.9)
[2024-08-16 11:13] LABS: ALB/GLOB Ratio 1.5 RATIO (0.9-2.4); AST(SGOT) 25 U/L (<=31); Alanine Aminotransfer ALT/SGPT 14 U/L (<=34); Albumin, Serum 4.1 g/dL (3.4-4.8); Alkaline Phosphatase 85 U/L (35-104); Anion Gap 11 (5-15); BUN 7 mg/dL (4-19); BUN/Creat Ratio 9.2 RATIO (10-20); Calcium,Total 9.3 mg/dL (7.6-11.0); Carbon Dioxide 26.5 mmol/L (21.0-32.0); Chloride 105 mmol/L (98-108); Creatinine, Serum 0.81 mg/dL (0.70-1.20); EST Glomerular Filtration Rate 82 (>60); Ferritin 64 ng/mL (22-378); Globulin 2.8 g/dL (2.2-4.2); Glucose 86 mg/dL (70-99); Magnesium 2.6 mg/dL (1.5-2.2); Potassium 4.4 mmol/L (3.3-5.1); Sodium Level 142 mmol/L (133-145)
== END | disposition home or self-care (01) ==
LOC: MTLAB 07:45
PROVIDERS: PCP Family Medicine; Referring Provider Family Medicine; Visit Provider Family Medicine
DX: I48.92 Unspecified atrial flutter (principal); Z79.01 Long term (current) use of anticoagulants
CPT/HCPCS: 36415; 80053; 82728; 83735; 85025; 85610; 86141

== ENCOUNTER → 2024-08-29 | Outpatient (CLI) | payer OTHER, SELFPAY ==
--- NOTE | 2024-08-29 07:52 | BI_ITS ---
EXAM: SCREENING MAMM (CAD), BILAT DATE: 08/29/2024 CLINICAL HISTORY: F, Age 63 y/o , SCREENING TECHNIQUE: SCREENING MAMM (CAD), BILAT COMPARISON: Prior exam(s) dated 08/16/2023, 09/01/2022, 08/31/2021. FINDINGS: TISSUE DENSITY: There are scattered areas of fibroglandular density. Bilateral Breast Mammographic Findings: No significant masses, calcifications or other abnormalities are identified. BI/SCREENING MAMM (CAD), BILAT IMPRESSION: There is no mammographic evidence of malignancy. OVERALL FINAL ASSESSMENT BI-RADS 1: NEGATIVE. RECOMMEND ANNUAL MAMMOGRAPHIC SCREENING. RECOMMENDATION: Routine annual follow-up in 1 Year A letter with findings and recommendations will be mailed to the patient. Reading Location: [id number]
--- NOTE | 2024-08-29 07:52 | BI_ITS ---
EXAM: SCREENING MAMM (CAD), BILAT DATE: 08/29/2024 CLINICAL HISTORY: F, Age 63 y/o , SCREENING TECHNIQUE: SCREENING MAMM (CAD), BILAT COMPARISON: Prior exam(s) dated 08/16/2023, 09/01/2022, 08/31/2021. FINDINGS: TISSUE DENSITY: There are scattered areas of fibroglandular density. Bilateral Breast Mammographic Findings: No significant masses, calcifications or other abnormalities are identified. BI/SCREENING MAMM (CAD), BILAT IMPRESSION: There is no mammographic evidence of malignancy. OVERALL FINAL ASSESSMENT BI-RADS 1: NEGATIVE. RECOMMEND ANNUAL MAMMOGRAPHIC SCREENING. RECOMMENDATION: Routine annual follow-up in 1 Year A letter with findings and recommendations will be mailed to the patient. Reading Location: [id number]
== END | disposition home or self-care (01) ==
LOC: OPBI 07:51
PROVIDERS: PCP Family Medicine; Referring Provider Family Medicine; Visit Provider Family Medicine
DX: Z12.31 Encounter for screening mammogram for malignant neoplasm of breast (principal)
CPT/HCPCS: 77067

== ENCOUNTER 2024-11-27 08:41 | Emergency (ER) | payer OTHER, SELFPAY ==
[2024-11-27] VITALS (9 sets, daily range): BP systolic 134–191; BP diastolic 62–89; PULSE 55–68; RESP 16–19; TEMP 36.6; O2SAT 100; BMI 22.4
--- NOTE | 2024-11-27 09:06 | EX.ED.DYSGE1 ---
HPI History of Present Illness Chief Complaint: Hypertension Informant: patient Onset/Context/Timing Onset: Days (3) Context: Sudden Onset Timing: Continuous Quality: Pressure Location: Top of her head Worsened by: Nothing Relieved by: Nothing Narrative Narrative: Patient presents with elevated blood pressure that has been getting worse over the past 3 days. Patient states it began rather suddenly. Patient states it has been constant. Patient states she feels lightheaded. Patient also admits to headache which feels like a pressure over the top of her head. Patient also admits to decreased appetite. Patient states nothing makes her symptoms worse and nothing makes them better. Patient denies any fevers or chills. Patient denies any chest pain or shortness of breath. Patient denies any nausea or vomiting. Patient denies any blurry vision or double vision. [facility] Medical History Obstructive sleep apnea Wears glasses Alcohol use Back pain Migraine headache TIA (transient ischemic attack) History of IBS Non-smoker CPAP (continuous positive airway pressure) dependence Rectal pressure Fatigue Paroxysmal atrial flutter (01/29/13) Hyperlipidemia History of CVA (cerebrovascular accident) (09/30/19) Gallstones Frequent UTI Hemorrhoids Arthritis Back problem Sleep apnea Psoriatic arthritis Nonsustained ventricular tachycardia Palpitations Home Medications ?Medication ?Instructions ?Recorded ?Last Taken ?Type calcium 600 mg (as 1 ea PO DAILY Supplement 03/10/15 Unknown History carbonate)-vitamin D3 20 mcg (800 unit) tablet (Caltrate with Vitamin D3) magnesium oxide 400 mg (241.3 mg 400 mg PO DAILY 06/04/20 Unknown History magnesium) tablet albuterol sulfate 90 mcg/actuation 2 puff inhalation Q4-6H PRN 07/21/23 Unknown Rx aerosol inhaler shortness of breath or wheezing #8.5 grams wheat dextrin 3 gram/3.5 gram oral 1 packet PO DAILY 07/21/23 Unknown History powder packet (Benefiber Clear Sugar Free(dextrin)) aspirin 81 mg tablet,delayed 81 mg PO DAILY 08/30/23 Unknown History release (Adult Aspirin Regimen) flecainide 50 mg tablet 50 mg PO BID for blood pressure 07/04/24 Unknown Rx #180 TABLETS Allergy/AdvReac Type Severity Reaction Status Date / Time diltiazem Allergy Intermediate rash Verified 11/27/24 08:41 atenolol (From Tenormin) Allergy Unknown Rash Verified 11/27/24 08:41 ciprofloxacin HCl (From Allergy Unknown Unknown Verified 11/27/24 08:41 Cipro) doxycycline hyclate (From Allergy Unknown Unknown Verified 11/27/24 08:41 Doryx) meloxicam (From Mobic) Allergy Unknown Rash Verified 11/27/24 08:41 Sulfa (Sulfonamide Allergy Unknown Rash Verified 11/27/24 08:41 Antibiotics) adhesive Allergy Rash Verified 11/27/24 08:41 tetracycline Allergy Unknown Verified 11/27/24 08:41 metoprolol AdvReac Intermediate Bradycardia Verified 11/27/24 08:41 doxycycline (From Doryx) AdvReac Mild Rash Verified 11/27/24 08:41 bupivacaine (From Exparel AdvReac PT UNSURE Verified 11/27/24 08:41 (PF)) OF REACTION cisatracurium AdvReac PT UNSURE Verified 11/27/24 08:41 OF REACTION succinylcholine AdvReac PT UNSURE Verified 11/27/24 08:41 OF REACTION Family History Father CAD (coronary artery disease) DE and CABG in 60's Hypertension High cholesterol Prostate cancer Myocardial infarction Mother High cholesterol Hypertension Skin cancer COPD (chronic obstructive pulmonary disease) Surgical History History of hemorrhoidectomy (08/27/20) History of esophagogastroduodenoscopy (EGD) Hx of colonoscopy History of cholecystectomy History of appendectomy (11/2011) History of dilatation and curettage History of left heart catheterization (03/11/15) Social History Smoking Status: Never smoker second hand exposure: No alcohol intake: current alcohol intake frequency: a few times a month substance use type: does not use caffeine: No (rarely) what type of physical activity do you participate in: walking and yoga frequency: daily justo/shinto: Alevism seatbelt use: always ROS ROS ED Constitutional Constitutional ED: Denies chills or fever(s) Eyes Eyes: Denies blurry vision or change in vision ENT ENT ED: Denies rhinorrhea or sore throat Cardiovascular Cardiovascular: Denies chest pain or palpitations Respiratory/Chest Respiratory/Chest: Denies cough or dyspnea Gastrointestinal Gastrointestinal: Denies nausea or vomiting Genitourinary Genitourinary ED: Denies dysuria or hematuria Musculoskeletal Musculoskeletal: Denies back pain or neck pain Integumentary Denies abscess or rash Neurologic Neurologic: Reports headache(s); Denies weakness Allergic/Immunologic Allergic/Immunologic ED: Denies mouth swelling or urticaria EXAM Physical Exam Const Vital Signs: 11/27/24 08:42 11/27/24 09:07 11/27/24 09:16 Temperature 97.8 F Temperature Source Temporal Pulse Rate 59 L 68 Pulse Rate [Lying] Pulse Rate [Sitting (for 1 minute prior to obtaining)] Pulse Rate [Standing (for 1 minute prior to obtaining)] Respiratory Rate 18 19 H Respiratory Effort Normal Non-Labored Respiratory Pattern Normal Blood Pressure 191/89 H 170/78 H Blood Pressure [Lying] Blood Pressure [Sitting (for 1 minute prior to obtaining)] Blood Pressure [Standing (for 1 minute prior to obtaining)] Blood Pressure Mean 123 108 Blood Pressure Mean [Lying] Blood Pressure Mean [Sitting (for 1 minute prior to obtaining)] Blood Pressure Mean [Standing (for 1 minute prior to obtaining)] Pulse Ox 100 100 Oxygen Delivery Method Room Air Room Air 11/27/24 10:00 11/27/24 10:56 11/27/24 11:35 Temperature Temperature Source Pulse Rate 62 55 L 63 Pulse Rate [Lying] Pulse Rate [Sitting (for 1 minute prior to obtaining)] Pulse Rate [Standing (for 1 minute prior to obtaining)] Respiratory Rate 16 17 Respiratory Effort Respiratory Pattern Blood Pressure 140/77 H 146/73 H 135/62 H Blood Pressure [Lying] Blood Pressure [Sitting (for 1 minute prior to obtaining)] Blood Pressure [Standing (for 1 minute prior to obtaining)] Blood Pressure Mean 98 97 86 Blood Pressure Mean [Lying] Blood Pressure Mean [Sitting (for 1 minute prior to obtaining)] Blood Pressure Mean [Standing (for 1 minute prior to obtaining)] Pulse Ox 100 100 100 Oxygen Delivery Method Room Air Room Air Room Air 11/27/24 11:38 11/27/24 11:39 11/27/24 12:00 Temperature 97.8 F Temperature Source Pulse Rate 56 L 57 L Pulse Rate [Lying] 56 L Pulse Rate [Sitting (for 1 minute prior to obtaining)] 57 L Pulse Rate [Standing (for 1 minute prior to obtaining)] 62 Respiratory Rate 16 17 Respiratory Effort Respiratory Pattern Blood Pressure 145/78 H 143/77 H Blood Pressure [Lying] 145/78 H Blood Pressure [Sitting (for 1 minute prior to obtaining)] 159/82 H Blood Pressure [Standing (for 1 minute prior to obtaining)] 157/82 H Blood Pressure Mean 100 99 Blood Pressure Mean [Lying] 100 Blood Pressure Mean [Sitting (for 1 minute prior to obtaining)] 107 Blood Pressure Mean [Standing (for 1 minute prior to obtaining)] 107 Pulse Ox 100 100 Oxygen Delivery Method Room Air 11/27/24 13:00 Temperature Temperature Source Pulse Rate 59 L Pulse Rate [Lying] Pulse Rate [Sitting (for 1 minute prior to obtaining)] Pulse Rate [Standing (for 1 minute prior to obtaining)] Respiratory Rate 16 Respiratory Effort Respiratory Pattern Blood Pressure 134/71 H Blood Pressure [Lying] Blood Pressure [Sitting (for 1 minute prior to obtaining)] Blood Pressure [Standing (for 1 minute prior to obtaining)] Blood Pressure Mean 92 Blood Pressure Mean [Lying] Blood Pressure Mean [Sitting (for 1 minute prior to obtaining)] Blood Pressure Mean [Standing (for 1 minute prior to obtaining)] Pulse Ox 100 Oxygen Delivery Method Room Air Positive well nourished and well developed General Appearance ED: well developed and NAD HEENT Reports moist mucous membranes Neck supple and no JVD Resp normal respiratory effort and clear to auscultation bilaterally Cardio regular rate, regular rhythm and no murmurs GI non-tender and non-distended Palpation: soft Extremity normal to inspection General Extremety ED: Negative for edema or tenderness General Extremity: Negative for edema Neuro oriented x3, CN's II-XII intact bilaterally and no sensory deficits noted Sensorium / Orientation: alert Motor Exam: strength 5/5 throughout Psych mental status grossly normal MDM MDM MDM Narrative Medical decision making narrative: Differential diagnosis includes accelerated hypertension, hypertensive urgency, hypertensive emergency, electrolyte abnormality, cardiac dysrhythmia, and anxiety. EKG will be obtained to assess for cardiac dysrhythmia and cardiac ischemia. Chest x-ray will be obtained to assess for pneumonia, bronchitis, and widened mediastinum. CBC will be obtained to assess for leukocytosis and anemia. Basic metabolic profile will be obtained to assess for electrolyte abnormality and renal function. High-sensitivity troponin will be obtained to assess for cardiac ischemia. History & Record Review Additional record(s) reviewed:: Prior outpatient record, Prior ED visit and Prior labs Lab Data Attestation: I reviewed the patient's lab results. Lab results narrative: CBC was reviewed and was within normal limits. Basic metabolic profile was reviewed and was essentially within normal limits. Initial high-sensitivity troponin was reviewed and was normal at 7. Urinalysis was reviewed. There is no evidence of urinary tract infection or hematuria. 2-hour repeat high-sensitivity troponin was reviewed and was normal at 8. Labs: Laboratory Results - last 24 hr 11/27/24 11/27/24 11/27/24 09:30 10: 11:25 WBC 6.1 RBC 4.70 Hgb 15.0 Hct 42.7 MCV 90.9 MCH 31.9 MCHC 35.1 RDW Std Deviation 40.7 RDW Coeff of Vanessa 12.2 Plt Count 236 MPV 10.7 Immature Gran % (Auto) 0.300 Neut % (Auto) 77.7 H Lymph % (Auto) 15.5 L Parker % (Auto) 5.3 Eos % (Auto) 0.5 Baso % (Auto) 0.7 Absolute Neuts (auto) 4.7 Absolute Lymphs (auto) 0.94 Nucleated RBC % 0 Sodium 135 Potassium 3.3 Chloride 95 L Carbon Dioxide 26.8 Anion Gap 13 BUN 7 Creatinine 0.77 Estim Creat Clear Calc 71.78 Est GFR (MDRD) Non-Af 86 BUN/Creatinine Ratio 8.5 L Glucose 99 Calcium 10.0 Troponin T High Sens 7 Troponin T Hi Sens 2 Hr 8 Urine Color Yellow Urine Clarity Clear Urine pH 7.0 Ur Specific [place] 1.010 Urine Protein Negative Urine Glucose (UA) Normal Urine Ketones 5 H Urine Occult Blood Negative Urine Nitrite Negative Urine Bilirubin Negative Urine Urobilinogen Normal Ur Leukocyte Esterase Negative Urine RBC 0 SEEN Urine WBC 0 SEEN Ur Squamous Epith Cells 0-5 SEEN Ur Transition Epith Cell 0-5 SEEN Urine Bacteria 0 SEEN Urine Mucus 0 SEEN Radiography Chest X-Ray - ED: 2 View, Read by ED Physician, Read by Radiologist and No Acute Disease Diagnostic Testing: Clinical Impression(s) from Imaging Studies Chest X-Ray 11/27/24 09:20 IMPRESSION: NO ACUTE FINDINGS. Reading Location: [id number] and lateral chest x-ray was obtained. There are 2 views. On my independent interpretation, lung barboza are clear. There is normal cardiac silhouette. Bony thorax is normal. There is no acute process noted. Radiologist also interpreted the x-ray and agrees. EKG Initial EKG: Attestation: I personally reviewed and interpreted this EKG as follows: Interpretation: No Acute Injury Pattern and Sinus Bradycardia (57) Comments: EKG was obtained. On my independent interpretation, it showed a sinus bradycardia with a rate of 57. MO interval, QRS interval, and QTc intervals were all normal. [place] was normal. There are no acute ST or T wave changes. Prior EKG tracings: available for review Prior: Unchanged (04/30/2024) Treatment and Re-Evaluation :: Patient was given a dose of hydralazine here. Patient's blood pressure improved to 146/73. Case was discussed with Dr. Cunningham, he will add a prescription of telmisartan to her blood pressure regimen. He will follow-up with the patient as an outpatient. He will contact patient tomorrow to schedule follow-up appointment. Patient and family understood and were agreeable with the plan. All questions were answered. Discharge Plan Triage Chief Complaint: Hypertension ED Provider: Ron Harding Dx/Rx/DC Orders Clinical Impression: Elevated blood pressure reading, Lightheadedness Instructions: ED High Blood Pressure Hypertension Prescriptions: No Action magnesium oxide 400 mg (241.3 mg magnesium) tablet 400 mg PO DAILY Patient Comments: TAKE 1 TABLET BY MOUTH TWICE A DAY aspirin [Adult Aspirin Regimen] 81 mg tablet,delayed release (DR/EC) 81 mg PO DAILY Benefiber Clear SF (dextrin) 3 gram/3.5 gram powder in packet 1 packet PO DAILY Rx Instructions: mix into at least 4 oz water or juice before administering albuterol sulfate 90 mcg/actuation HFA aerosol inhaler 2 puff inhalation Q4-6H PRN (Reason: shortness of breath or wheezing) Qty: 8.5 0RF calcium carbonate-vitamin D3 [Caltrate with Vitamin D3] 1 EACH tablet 1 ea PO DAILY Patient Comments: SUPPLEMENT flecainide 50 mg tablet 50 mg PO BID Qty: 180 3RF Primary Care Provider: Ron Cunningham Referrals: Ron Cunningham MD [Primary Care Provider, Family Practice] - 5-7 Days Print Language: Vietnamese Disposition Disposition: Home, Self Care Discharge Date/Time: 11/27/24 13:06
--- NOTE | 2024-11-27 09:20 | RAD_ITS ---
PROCEDURE: CHEST PA AND LATERAL 11/27/2024 REASON FOR EXAM: HYPERTENSION TECHNIQUE: Procedure Code: RADCXR Modality: DX Procedure: CHEST PA AND LATERAL COMPARISON: 08/29/2023 FINDINGS: Hardware: None Heart: The heart size is normal. Mediastinum: The mediastinal contour is unremarkable. Lungs: The lungs are clear. Bones: The bones are unremarkable. RAD/Chest PA and Lateral IMPRESSION: NO ACUTE FINDINGS. Reading Location: [place] [id number]
--- NOTE | 2024-11-27 09:20 | EKG12_ITS ---
Test Reason : HIGH BP Blood Pressure : */* mmHG Vent. Rate : 57 BPM Atrial Rate : 57 BPM P-R Int : 144 ms QRS Dur : 80 ms QT Int : 446 ms P-R-T Axes : 53 33 48 degrees QTcB Int : 434 ms Sinus bradycardia Otherwise normal ECG Confirmed by Vern Trinidad ([id number]), editorial project manager JULIANO GRIFFITH ([id number]) on 11/29/2024 7:14:41 AM Referred By: Confirmed By: Vern Trinidad
[2024-11-27 09:53] LABS: Hematocrit 42.7 % (37-47); Hemoglobin 15.0 g/dL (12.0-15.0); Immature Granulocytes Count 0.020 X10^3/uL (0.0-0.0); Mean Corp Hgb Conc 35.1 g/dL (32-36); Mean Corpuscular Volume 90.9 fL (81-99); Mean Platelet Vol. 10.7 fl (6.2-12.0); NRBC Flagged by Analyzer 0 % (0-5); Platelet Count 236 K/mm3 (150-450); RBC Distribution Width CV 12.2 % (11.6-14.6); RBC Distribution Width SD 40.7 fl (35.1-43.9); Red Blood Count 4.70 M/mm3 (4.2-5.4); White Blood Count 6.1 K/mm3 (4.4-11.0)
[2024-11-27 10:22] LABS: Troponin T High Sensitivity 7 ng/L (<=14)
[2024-11-27 10:23] LABS: Anion Gap 13 (5-15); BUN 7 mg/dL (4-19); BUN/Creat Ratio 8.5 RATIO (10-20); Calcium,Total 10.0 mg/dL (7.6-11.0); Carbon Dioxide 26.8 mmol/L (21.0-32.0); Chloride 95 mmol/L (98-108); Estimated Creatinine Clearance 71.78 ml/min (50-250); Glucose 99 mg/dL (70-99); Potassium 3.3 mmol/L (3.3-5.1)
[2024-11-27 10:36] LABS: Mucous, Urine 0 SEEN /hpf (<or=2+); Red Blood Cells-Urine 0 SEEN /hpf (0-5)
[2024-11-27 10:41] LABS: Color, Urine Yellow (Yellow); Glucose, Dipstick Normal (Normal); Ketone-Dipstick 5 mg/dl (Negative); Leukocyte Esterase-Dipstick Negative /ul (Negative); Nitrite-Dipstick Negative (Negative); Occult Blood-Urine Negative /ul (Negative); Protein-Dipstick Negative (Negative); Specific Gravity, Urine 1.010 (1.002-1.030); Urine Bilirubin Dipstick Negative (Negative)
[2024-11-27 10:53] LABS: Squamous Epithelial Cells - UA 0-5 SEEN /hpf (5-10); Transitional Epithelial - Ur 0-5 SEEN /hpf (0-5)
[2024-11-27 11:55] LABS: Troponin T High Sens 2 HR 8 ng/L (<=14)
== END 2024-11-27 13:06 | disposition home or self-care (01) ==
PROVIDERS: Emergency Provider Emergency Medicine; PCP Family Medicine; Visit Provider Emergency Medicine
DX: R03.0 Elevated blood-pressure reading, without diagnosis of hypertension (principal); R42 Dizziness and giddiness; G47.33 Obstructive sleep apnea (adult) (pediatric); Z86.73 Personal history of transient ischemic attack (TIA), and cerebral infarction without residual deficits
CPT/HCPCS: 71046; 80048; 81001; 84484; 85025; 93005; 96374; 99285; A4216

== ENCOUNTER → 2025-01-13 | Outpatient (CLI) | payer OTHER, SELFPAY ==
[2025-01-13 12:24] LABS: Hematocrit 42.0 % (37-47); Hemoglobin 13.7 g/dL (12.0-15.0); Mean Corp Hgb Conc 32.6 g/dL (32-36); Mean Corpuscular Volume 97.0 fL (81-99); Mean Platelet Vol. 10.5 fl (6.2-12.0); Platelet Count 295 K/mm3 (150-450); RBC Distribution Width CV 12.3 % (11.6-14.6); RBC Distribution Width SD 44.2 fl (35.1-43.9); Red Blood Count 4.33 M/mm3 (4.2-5.4); White Blood Count 7.3 K/mm3 (4.4-11.0)
[2025-01-13 13:13] LABS: AST(SGOT) 23 U/L (<=31); Alanine Aminotransfer ALT/SGPT 13 U/L (<=34); Albumin, Serum 4.4 g/dL (3.4-4.8); Alkaline Phosphatase 87 U/L (35-104); Anion Gap 11 (5-15); BUN 12 mg/dL (4-19); BUN/Creat Ratio 16.1 RATIO (10-20); Calcium,Total 10.3 mg/dL (7.6-11.0); Carbon Dioxide 27.8 mmol/L (21.0-32.0); Chloride 103 mmol/L (98-108); Globulin 3.2 g/dL (2.2-4.2); Glucose 78 mg/dL (70-99); Potassium 4.4 mmol/L (3.3-5.1)
== END | disposition home or self-care (01) ==
LOC: MFPLAB 10:14
PROVIDERS: PCP Family Medicine; Visit Provider Family Medicine
DX: I48.92 Unspecified atrial flutter (principal); I10 Essential (primary) hypertension
CPT/HCPCS: 36415; 80053; 84443; 85027